=== PATIENT | male | born 1950 | race Caucasian/White ===

== ENCOUNTER 2022-09-30 09:00 | Outpatient (RCR) | payer MEDICARE, SELFPAY ==
--- NOTE | 2022-03-11 15:52 | ONC.NURNOTE ---
abiraterone (zytiga) pill strength Mr. Simon called today to verify the dose of abiraterone he should take. He reports that he actually received a prescription 2 days ago, and a second one yesterday. Both bottles are for 250mg tabs, with instruction to take 4 tabs daily. Script we have on file for him is for 2- 500mg tabs. Either way, total dose is to be 1000mg daily. Confirmed with Mr. Simon that he is to take 4 - 250mg tabs for total dose of 1000mg daily, on an empty stomach, 1 hour before meal, or 2 hours after a meal. He knows to take prednisone as well and we discussed that he should take the prednisone when he eats breakfast, daily. He is agreeable to this plan.
[2022-04-07 13:28] LABS: Basophils Absolute Auto 0.04 K/uL (0.00-0.30); Basophils Percent Auto 0.5 % (0.0-3.0); Eosinophils Absolute Auto 0.29 K/uL (0.00-0.50); Eosinophils Percent Auto 3.5 % (0.0-7.0); Hemoglobin* 13.9 gm/dL (13.5-17.5); Immature Granulocytes Abs Auto 0.04 K/uL (0.00-0.30); Lymphocytes Percent Auto 5.8 % (20-44); Mean Corpuscular HGB Conc 34 gm/dL (32-36); Mean Corpuscular Hemoglobin 32 pg (26-34); Mean Corpuscular Volume 93 fL (80-100); Monocytes Percent Auto 12.2 % (0.0-11.0); Neutrophils Percent Auto 77.5 % (42.0-72.0); Platelet Count* 119 K/uL (140-440); RDW Coefficient of Variation % 13.7 % (11.5-15.5); Red Blood Count 4.41 m/uL (4.30-5.90); White Blood Count* 8.33 K/uL (4.50-11.00)
[2022-04-07 13:34] LABS: Slide Review Reflex No
[2022-04-07 13:49] LABS: Albumin* 3.8 g/dL (3.3-5.0); Chloride* 103 mmol/L (96-114)
[2022-04-07 13:50] LABS: Potassium* 4.3 mmol/L (3.6-5.1); Sodium* 139 mmol/L (135-149)
[2022-04-07 13:52] LABS: Alkaline Phosphatase* 107 U/L (40-150); Aspartate Amino Transferase* 25 U/L (12-35); Bilirubin Total* 0.6 mg/dL (0.1-1.5); Carbon Dioxide* 29 mmol/L (20-32); Creatinine* 0.9 mg/dL (0.5-1.5); Estimated Glomerular Filt Rate 91 ml/min; Total Protein* 6.9 g/dL (6.0-8.3)
[2022-04-07 13:53] LABS: Alanine Aminotransferase* 16 U/L (4-50); Blood Urea Nitrogen* 22 mg/dL (7-30); Calcium* 8.8 mg/dL (8.4-10.6); Glucose* 99 mg/dL (60-115)
--- NOTE | 2022-05-01 11:49 | ONC.NURNOTE ---
Authorization: User: Luci Bowie Date: 01/23/22 13:47 Type: Eligibility Determination Note... Request received from [facility] for prior authorization of Leuprolide [id number]. Patient carries [facility] Advantage as primary insurance. Per [facility] Leuprolide has been approved from 01/23/2022 through 01/23/2023. Authorization #[id number]
[2022-05-05 11:06] LABS: Basophils Absolute Auto 0.03 K/uL (0.00-0.30); Basophils Percent Auto 0.3 % (0.0-3.0); Eosinophils Percent Auto 1.8 % (0.0-7.0); Hematocrit 38.7 % (37.0-53.0); Hemoglobin* 13.2 gm/dL (13.5-17.5); Immature Granulocytes Abs Auto 0.05 K/uL (0.00-0.30); Lymphocytes Percent Auto 8.2 % (20-44); Mean Corpuscular HGB Conc 34 gm/dL (32-36); Mean Corpuscular Hemoglobin 32 pg (26-34); Mean Corpuscular Volume 94 fL (80-100); Monocytes Percent Auto 7.7 % (0.0-11.0); Neutrophils Percent Auto 81.5 % (42.0-72.0); Platelet Count* 145 K/uL (140-440); Red Blood Count 4.12 m/uL (4.30-5.90); White Blood Count* 10.84 K/uL (4.50-11.00)
[2022-05-05 11:20] LABS: Slide Review Reflex No
[2022-05-05 11:26] VITALS: BP 115/66; PULSE 74; RESP 16; TEMP 36.2; O2SAT 96
[2022-05-05 11:34] LABS: Blood Urea Nitrogen* 19 mg/dL (7-30); Carbon Dioxide* 28 mmol/L (20-32); Chloride* 103 mmol/L (96-114); Est. Creatinine Clearance* 62.43; Estimated Glomerular Filt Rate 80 ml/min; Potassium* 4.2 mmol/L (3.6-5.1); Sodium* 139 mmol/L (135-149)
[2022-05-05 11:35] LABS: Alanine Aminotransferase* 18 U/L (4-50); Albumin* 4.1 g/dL (3.3-5.0); Alkaline Phosphatase* 95 U/L (40-150); Aspartate Amino Transferase* 27 U/L (12-35); Bilirubin Total* 0.9 mg/dL (0.1-1.5); Glucose* 88 mg/dL (60-115); Total Protein* 7.1 g/dL (6.0-8.3)
[2022-05-05 13:35] LABS: PSA Diagnostic* < 0.06 ng/mL (0.10-4.00)
[2022-06-02 09:22] LABS: Basophils Absolute Auto 0.04 K/uL (0.00-0.30); Basophils Percent Auto 0.5 % (0.0-3.0); Eosinophils Absolute Auto 0.46 K/uL (0.00-0.50); Eosinophils Percent Auto 5.2 % (0.0-7.0); Hematocrit 38.9 % (37.0-53.0); Hemoglobin* 13.3 gm/dL (13.5-17.5); Immature Granulocytes Abs Auto 0.05 K/uL (0.00-0.30); Lymphocytes Percent Auto 8.1 % (20-44); Mean Corpuscular HGB Conc 34 gm/dL (32-36); Mean Corpuscular Hemoglobin 32 pg (26-34); Mean Corpuscular Volume 94 fL (80-100); Monocytes Percent Auto 9.4 % (0.0-11.0); Neutrophils Percent Auto 76.2 % (42.0-72.0); Platelet Count* 155 K/uL (140-440); RDW Coefficient of Variation % 12.3 % (11.5-15.5); Red Blood Count 4.12 m/uL (4.30-5.90); White Blood Count* 8.81 K/uL (4.50-11.00)
[2022-06-02 09:26] LABS: Slide Review Reflex No
[2022-06-02 09:39] LABS: Albumin* 4.1 g/dL (3.3-5.0); Chloride* 105 mmol/L (96-114); Potassium* 4.1 mmol/L (3.6-5.1); Sodium* 142 mmol/L (135-149)
[2022-06-02 09:41] LABS: Creatinine* 0.8 mg/dL (0.5-1.5); Est. Creatinine Clearance* 62.43; Estimated Glomerular Filt Rate 94 ml/min
[2022-06-02 09:42] LABS: Alanine Aminotransferase* 14 U/L (4-50); Alkaline Phosphatase* 99 U/L (40-150); Aspartate Amino Transferase* 27 U/L (12-35); Bilirubin Total* 0.7 mg/dL (0.1-1.5); Blood Urea Nitrogen* 16 mg/dL (7-30); Carbon Dioxide* 29 mmol/L (20-32); Glucose* 95 mg/dL (60-115); Total Protein* 6.9 g/dL (6.0-8.3)
[2022-06-02 09:43] LABS: Calcium* 9.4 mg/dL (8.4-10.6)
--- NOTE | 2022-06-02 10:53 | ONC.NURNOTE ---
labs called to pt and shown to [facility].
--- NOTE | 2022-06-03 13:06 | ONC.NURNOTE ---
Labs reviewed by Dr Lr called to patient as stable next appts reviewed was instructed to check with insurance about specialty drug coverage, options
--- NOTE | 2022-06-20 12:02 | ONC.NURNOTE ---
Pt notified of refill sent in by Liberty Alvarado CNP for Prednisone 5mg qday.
[2022-06-26 09:14] LABS: Basophils Absolute Auto 0.05 K/uL (0.00-0.30); Basophils Percent Auto 0.5 % (0.0-3.0); Eosinophils Percent Auto 5.9 % (0.0-7.0); Hematocrit 41.3 % (37.0-53.0); Hemoglobin* 13.7 gm/dL (13.5-17.5); Lymphocytes Percent Auto 6.1 % (20-44); Mean Corpuscular HGB Conc 33 gm/dL (32-36); Mean Corpuscular Hemoglobin 32 pg (26-34); Mean Corpuscular Volume 96 fL (80-100); Monocytes Percent Auto 9.9 % (0.0-11.0); Neutrophils Percent Auto 77.4 % (42.0-72.0); Platelet Count* 145 K/uL (140-440); Red Blood Count 4.29 m/uL (4.30-5.90)
[2022-06-26 09:15] LABS: Slide Review Reflex No
[2022-06-26 09:27] LABS: Albumin* 4.2 g/dL (3.3-5.0); Chloride* 103 mmol/L (96-114)
[2022-06-26 09:28] LABS: Potassium* 3.7 mmol/L (3.6-5.1); Sodium* 140 mmol/L (135-149)
[2022-06-26 09:30] LABS: Aspartate Amino Transferase* 29 U/L (12-35); Bilirubin Total* 0.7 mg/dL (0.1-1.5); Carbon Dioxide* 29 mmol/L (20-32); Creatinine* 0.9 mg/dL (0.5-1.5); Est. Creatinine Clearance* 61.51; Estimated Glomerular Filt Rate 90 ml/min; Total Protein* 7.3 g/dL (6.0-8.3)
[2022-06-26 09:31] LABS: Alanine Aminotransferase* 18 U/L (4-50); Alkaline Phosphatase* 97 U/L (40-150); Blood Urea Nitrogen* 19 mg/dL (7-30); Calcium* 9.1 mg/dL (8.4-10.6); Glucose* 104 mg/dL (60-115)
[2022-06-26 10:07] LABS: PSA Diagnostic* < 0.06 ng/mL (0.10-4.00)
[2022-06-30 10:55] LABS: Sex Hormone Binding Globulin 61 nmol/L (19-76); Testosterone, Adult Male <3 ng/dL (300-720); Testosterone, Free Calculation <1 pg/mL (47-244); Testosterone, Percentage Free <1.1 % (1.6-2.9)
--- NOTE | 2022-07-14 12:19 | ONC.NURNOTE ---
Message left for patient/ to call in follow up about options for Zytiga to continue on generic abiraterone with a monthly copay or to talk to provider about changing to another medication- Erleada
[2022-08-04 10:12] LABS: Albumin* 3.9 g/dL (3.3-5.0); Chloride* 103 mmol/L (96-114); Potassium* 4.1 mmol/L (3.6-5.1); Sodium* 139 mmol/L (135-149)
[2022-08-04 10:15] LABS: Alanine Aminotransferase* 21 U/L (4-50); Alkaline Phosphatase* 86 U/L (40-150); Aspartate Amino Transferase* 29 U/L (12-35); Bilirubin Total* 0.9 mg/dL (0.1-1.5); Blood Urea Nitrogen* 19 mg/dL (7-30); Carbon Dioxide* 28 mmol/L (20-32); Est. Creatinine Clearance* 61.51; Estimated Glomerular Filt Rate 79 ml/min; Glucose* 86 mg/dL (60-115); Total Protein* 6.9 g/dL (6.0-8.3)
[2022-08-04 10:20] LABS: Basophils Absolute Auto 0.04 K/uL (0.00-0.30); Basophils Percent Auto 0.4 % (0.0-3.0); Eosinophils Absolute Auto 0.25 K/uL (0.00-0.50); Eosinophils Percent Auto 2.6 % (0.0-7.0); Hematocrit 40.1 % (37.0-53.0); Hemoglobin* 13.6 gm/dL (13.5-17.5); Immature Granulocytes Abs Auto 0.04 K/uL (0.00-0.30); Immature Granulocytes Pct Auto 0.4 %; Lymphocytes Percent Auto 4.5 % (20-44); Mean Corpuscular HGB Conc 34 gm/dL (32-36); Mean Corpuscular Hemoglobin 32 pg (26-34); Mean Corpuscular Volume 94 fL (80-100); Neutrophils Percent Auto 82.1 % (42.0-72.0); Platelet Count* 141 K/uL (140-440); RDW Coefficient of Variation % 11.7 % (11.5-15.5); Red Blood Count 4.28 m/uL (4.30-5.90); White Blood Count* 9.49 K/uL (4.50-11.00)
[2022-08-04 10:36] LABS: Slide Review Reflex No
--- NOTE | 2022-08-05 14:35 | ONC.NURNOTE ---
Addendum entered by Rebecca Albright RN 08/06/22 15:02: Copay $1000 Addendum entered by Rebecca Albright RN 08/06/22 14:38: PA approved for Erleada thru 08/23/23 PA # [id number] [facility] Original Note: New Erleada RX faxed to [facility] [phone]
--- NOTE | 2022-08-07 15:24 | ONC.NURNOTE ---
New application faxed to [employer] for Ashok included with application, [id number], ins cards copy, demographics, RX
--- NOTE | 2022-09-04 13:46 | ONC.NURNOTE ---
Ashok to be shipped to patient this next week To continue on Zytiga until current supply is completed Instructions to be given for prednisone taper and treatment break between medications
--- NOTE | 2022-09-26 14:17 | ONC.NURNOTE ---
Erleada update: [facility] (the [facility] that will be shipping Erleada) has patients enrollement info, but they are waiting for authorization from [facility] to dispense Erleada [facility] Construction Economist states that [facility] can not set up shipping date and that is was an error for the [facility] rep to tell patient that the Erleada was going to be shipped last month Faizan's application has been escalated by the [facility] rep 3 times to get this case moving. [facility] has less than 2 weeks of Zytdova left on hand policy writer typist also talked to [facility] customer support advisor on Thursday and they stated they would be contacting patient this week about status of drug delivery- patient has not received any calls from [facility] or [facility] this week Sharron was advised of this conversation -
[2022-09-30 09:26] LABS: Basophils Absolute Auto 0.06 K/uL (0.00-0.30); Basophils Percent Auto 0.8 % (0.0-3.0); Eosinophils Percent Auto 9.2 % (0.0-7.0); Hematocrit 40.9 % (37.0-53.0); Hemoglobin* 13.5 gm/dL (13.5-17.5); Immature Granulocytes Abs Auto 0.01 K/uL (0.00-0.30); Immature Granulocytes Pct Auto 0.1 %; Lymphocytes Percent Auto 11.2 % (20-44); Mean Corpuscular HGB Conc 33 gm/dL (32-36); Mean Corpuscular Hemoglobin 31 pg (26-34); Mean Corpuscular Volume 95 fL (80-100); Monocytes Percent Auto 11.7 % (0.0-11.0); Neutrophils Absolute Auto 4.88 K/uL (1.7-7.0); Platelet Count* 137 K/uL (140-440); RDW Coefficient of Variation % 12.6 % (11.5-15.5); Red Blood Count 4.32 m/uL (4.30-5.90); White Blood Count* 7.29 K/uL (4.50-11.00)
[2022-09-30 09:47] LABS: Albumin* 3.9 g/dL (3.3-5.0); Chloride* 105 mmol/L (96-114); Sodium* 140 mmol/L (135-149)
[2022-09-30 09:48] LABS: Potassium* 4.2 mmol/L (3.6-5.1)
[2022-09-30 09:50] LABS: Alanine Aminotransferase* 16 U/L (4-50); Alkaline Phosphatase* 81 U/L (40-150); Aspartate Amino Transferase* 25 U/L (12-35); Bilirubin Total* 0.7 mg/dL (0.1-1.5); Blood Urea Nitrogen* 23 mg/dL (7-30); Carbon Dioxide* 31 mmol/L (20-32); Creatinine* 0.9 mg/dL (0.5-1.5); Est. Creatinine Clearance* 61.51; Estimated Glomerular Filt Rate 90 ml/min; Total Protein* 6.9 g/dL (6.0-8.3)
[2022-09-30 09:51] LABS: Glucose* 88 mg/dL (60-115)
[2022-09-30 09:55] LABS: Slide Review Reflex No
--- NOTE | 2022-10-02 10:45 | ONC.NURNOTE ---
Received call from [facility] confirming dose and directions of Erleada prescription; they will contact pt to set up delivery.
== END 2022-10-04 23:59 | disposition home or self-care (01) ==
LOC: CCIC 09:00
PROVIDERS: Clinical Nurse Specialist; PCP Physician Assistant Medical; Referring Provider Physician Assistant Medical; Visit Provider Internal Medicine Medical Oncology
DX: C61 Malignant neoplasm of prostate (principal)
CPT/HCPCS: 36415; 80053; 84153; 84270; 84402; 84403; 85025; 96401; 99212; 99214; J9217

== ENCOUNTER 2022-10-23 21:41 | Emergency (ER) | payer MEDICARE, SELFPAY ==
[2022-10-23 21:51] VITALS: BP 136/84; PULSE 87; RESP 26; TEMP 36.1; O2SAT 93; BMI 30.7
[2022-10-23 22:10] VITALS: PULSE 63; O2SAT 91
[2022-10-23 22:15] VITALS: PULSE 59; O2SAT 92
[2022-10-23 22:30] VITALS: PULSE 71; O2SAT 91
[2022-10-23 22:32] VITALS: BP 116/73; PULSE 50; O2SAT 90
--- NOTE | 2022-10-23 22:34 | ED_ITS ---
HPI - General Adult General Date Seen: 10/23/22 Chief complaint: Shortness of Breath/Dyspnea Stated complaint: Pneumonia, not responding to meds give 36h ago Time Seen by Provider: 10/23/22 22:02 Source: patient and family Mode of arrival: ambulatory Limitations: no limitations History of Present Illness HPI narrative: Patient is a 72-year-old male with chronic lung disease in the form of pulmonary fibrosis and negrete's lung. He has been ill for several weeks with wheezing and shortness of breath. He was seen in clinic yesterday and prescribed Zithromax and Ceftin and told that he had pneumonia. In reviewing his chest x-ray he has no acute pneumonia but does have chronic lung disease. To 90 comes in because he has been unable to sleep. When he lies on his back he wheezes loudly and the noise keeps him awake. His oxygen level at home has been in the low 90s. He is eating and drinking okay. He has DuoNebs, Flovent, Robitussin AC. No fevers or chills. He has never required home oxygen. He is doing oral chemotherapy for prostate cancer. He is only on 2.5 mg of prednisone daily. In the past steroid seem to be the only thing that helps his respiratory infections. Related Data Home Medications Medication Instructions Recorded Confirmed Lactobacillus acidophilus 10 10,000 mmu cells PO ONCE 04/07/22 08/04/22 billion cell capsule (Probiotic) aspirin 81 mg tablet,delayed 81 mg PO QDAY 04/07/22 08/04/22 release (Deirdre Low Dose Aspirin) losartan 25 mg tablet 25 mg PO QDAY 04/07/22 08/04/22 metoprolol tartrate 25 mg tablet 25 mg PO BID 04/07/22 08/04/22 multivitamin 1 tab PO QAM 04/07/22 08/04/22 vit C 250 mg-vit E 90 mg-zinc 40 1 tab PO BID 04/07/22 08/04/22 mg-copper 1 [id number] capsule (PreserVision AREDS-2) simvastatin 40 mg tablet 40 mg PO QDAY 08/04/22 08/04/22 Previous Rx's Medication Instructions Recorded apalutamide 60 mg tablet (Erleada) 240 mg PO QDAY #120 tabs 08/04/22 prednisone 2.5 mg tablet 2.5 mg PO QDAY #14 tabs 02/03/23 prednisone 20 mg tablet 20 mg PO DAILY #14 tabs 10/23/22 Allergies Allergy/AdvReac Type Severity Reaction Status Date / Time No Known Drug Allergies Allergy Verified 10/23/22 21:51 Review of Systems Narrative: Review of systems is as outlined above otherwise noted to be negative. [facility] Medical History (Updated 10/23/22 @ 22:34 by Nikos Rivers MD) Adenocarcinoma of prostate (~11/2021) Colon polyp Essential hypertension [place]' lung Pulmonary fibrosis Surgical wound dehiscence Thoracic aortic ectasia Surgical History (Updated 10/23/22 @ 22:04 by Nikos Rivers MD) H/O aortic valve replacement (~09/2020) History of incisional hernia repair (~2010) Hx laparoscopic cholecystectomy Social History Smoking Status: Former smoker Do you use any of these nicotine containing products: None Second hand tobacco smoke exposure: No How often do you have a drink containing alcohol: never How often do you have six or more drinks on one occasion: Never AUDIT-C Alcohol total score: 0 Non-prescribed substance use: denies use service: Yes Exam Narrative: Exam Narrative: Vitals noted. Oxygen saturation is between 90 and 92% on room air. HEENT: Conjunctiva clear. Tympanic membranes are pearly white bilaterally. Posterior pharynx is clear without erythema or exudate. Neck is supple without adenopathy. Lungs: Diminished with expiratory wheezes. Loose rhonchi throughout. No localizing rales or rhonchi. No accessory muscle use. Heart: Regular rate and rhythm without murmur. Abdomen: Soft and nontender. No guarding, rigidity, rebound. Bowel sounds are normal. No palpable masses. Extremities: No cyanosis or edema. Good distal pulses. Skin: No abnormalities noted of the exposed skin. Neurologic: Awake, alert, fully oriented. Neurologic exam is nonfocal. Const: Vital Signs, click to edit/add: Vital Signs - 24 hr 10/23/22 21:51 Temperature 96.9 F L Pulse Rate [Pulse Oximeter] 87 Respiratory Rate 26 H Blood Pressure [Ri ght Upper Arm] 136/84 Pulse Oximetry 93 Oxygen Delivery Me thod Room Air Course Course Hospital Course: Patient is seen and examined. I reviewed his labs and chest x-ray that were done at the [facility] yesterday. We discussed options of hospital admission versus trying optimize his outpatient treatment. He prefers to remain at home. I gave him prednisone 50 mg orally and lorazepam 1 mg orally as his main complaint is inability to sleep. If he has worsening respiratory issues he will return but both he and his prefer that he be discharged tonight and I think that is very reasonable. He has DuoNebs, Flovent, Robitussin AC at home. Vital Signs Vital signs: Initial Vital Signs Temperature 96.9 F L 10/23/22 21:51 Temperature Source Temporal Artery Scan 10/23/22 21:51 Pulse Rate 87 10/23/22 21:51 Pulse Rhythm 10/23/22 21:51 Respiratory Rate 26 H 10/23/22 21:51 Blood Pressure 136/84 10/23/22 21:51 Blood Pressure Mean 101 10/23/22 21:51 Blood Pressure Position Supine 10/23/22 21:51 Pulse Oximetry 93 10/23/22 21:51 Oxygen Delivery Method 10/23/22 21:51 Vital Signs Temperature 96.9 F L 10/23/22 21:51 Pulse Rate 87 10/23/22 21:51 Respiratory Rate 26 H 10/23/22 21:51 Blood Pressure 136/84 10/23/22 21:51 Pulse Oximetry 93 10/23/22 21:51 Oxygen Delivery Method 10/23/22 21:51 Temperature 96.9 F L 10/23/22 21:51 Pulse Rate 87 10/23/22 21:51 Respiratory Rate 26 H 10/23/22 21:51 Blood Pressure 136/84 10/23/22 21:51 Pulse Oximetry 93 10/23/22 21:51 Oxygen Delivery Method 10/23/22 21:51 Discharge Plan Discharge Clinical Impression: Pulmonary fibrosis Patient Disposition: Home, Self-Care Condition: Improved Additional Instructions: Finish your Ceftin and Zithromax. Start Prednisone 40 mg daily for 4 days, 20 mg daily for 4 days, 10 mg daily for 4 days then stop. Push fluids. Remain upright for sleep. Use Robitussin with Codeine, DuoNebs, and Flovent as prescribed. Ret urn to the ED for worsening SOB. Prescriptions: New prednisone 20 mg tablet 20 mg PO DAILY Qty: 14 0RF Rx Instructions: 2 QD x 4 days, 1 QD x 4 days, 1/2 QD x 4 days No Action simvastatin 40 mg tablet 40 mg PO QDAY Erleada 60 mg tablet 240 mg PO QDAY Qty: 120 6RF metoprolol tartrate 25 mg tablet 25 mg PO BID losartan 25 mg tablet 25 mg PO QDAY PreserVision AREDS-2 250-90-40-1 mg capsule 1 tab PO BID multivitamin Tablet 1 tab PO QAM aspirin [Deirdre Low Dose Aspirin] 81 mg tablet,delayed release (DR/EC) 81 mg PO QDAY Probiotic 10 billion cell capsule 10,000 mmu cells PO ONCE prednisone 2.5 mg tablet 2.5 mg PO QDAY Qty: 14 0RF Rx Instructions: Take 1 tab daily for 14 days, then stop. Follow Up/Referrals: Jacquelyn Fleming PAMaryaC [Primary Care Provider] - Stand Alone Forms: [facility] Info Instructions
[2022-10-23] MEDS: LORazepam 1 MG TABLET PO (22:38)
[2022-10-23] MEDS: predniSONE 10 MG TABLET 50 MG PO (22:38)
[2022-10-23 22:45] VITALS: O2SAT 91
== END 2022-10-23 22:48 | disposition home or self-care (01) ==
LOC: ED 22:43
PROVIDERS: Emergency Provider Family Medicine; PCP Physician Assistant Medical
DX: J84.10 Pulmonary fibrosis, unspecified (principal)
CPT/HCPCS: 99282; 99283; 99284; A9270; J7512

== ENCOUNTER 2023-02-03 08:45 | Outpatient (RCR) | payer MEDICARE, SELFPAY ==
[2022-11-03 10:47] LABS: Basophils Percent Auto 0.3 % (0.0-3.0); Eosinophils Percent Auto 1.8 % (0.0-7.0); Hematocrit 43.2 % (37.0-53.0); Hemoglobin* 14.7 gm/dL (13.5-17.5); Lymphocytes Percent Auto 2.9 % (20-44); Mean Corpuscular HGB Conc 34 gm/dL (32-36); Mean Corpuscular Hemoglobin 31 pg (26-34); Mean Corpuscular Volume 92 fL (80-100); Monocytes Percent Auto 9.6 % (0.0-11.0); Neutrophils Percent Auto 84.4 % (42.0-72.0); Platelet Count* 172 K/uL (140-440); RDW Coefficient of Variation % 12.6 % (11.5-15.5); Red Blood Count 4.69 m/uL (4.30-5.90); Slide Review Reflex No; White Blood Count* 14.32 K/uL (4.50-11.00)
[2022-11-03 11:01] LABS: Albumin* 3.9 g/dL (3.3-5.0); Chloride* 100 mmol/L (96-114); Sodium* 134 mmol/L (135-149)
[2022-11-03 11:02] LABS: Potassium* 4.4 mmol/L (3.6-5.1)
[2022-11-03 11:04] LABS: Alanine Aminotransferase* 18 U/L (4-50); Alkaline Phosphatase* 77 U/L (40-150); Aspartate Amino Transferase* 28 U/L (12-35); Bilirubin Total* 0.6 mg/dL (0.1-1.5); Blood Urea Nitrogen* 21 mg/dL (7-30); Carbon Dioxide* 28 mmol/L (20-32); Estimated Glomerular Filt Rate 79 ml/min; Total Protein* 7.2 g/dL (6.0-8.3)
[2022-11-03 11:05] LABS: Calcium* 9.3 mg/dL (8.4-10.6); Glucose* 128 mg/dL (60-115)
[2022-11-03 11:35] LABS: PSA Diagnostic* 0.09 ng/mL (0.10-4.00)
--- NOTE | 2022-11-06 09:47 | ONC.NURNOTE ---
Ashok refills jeffrey received refill last Thursday10/31/22 this film writer was informed by [facility] (Alvarado) that future refills will be automatically sent out every 30 days and patient will not receive a call from [facility] [facility] prior to shipment [facility]? [phone] [facility] _ [facility] [phone]
--- NOTE | 2022-11-10 11:45 | ONC.NURNOTE ---
Patients called office and notes that patient had a lupron injection last Thursday. He notes swelling near his testicles that have come up. She notes that he is currently being seen for pneumonia and is being treated with multiple medications. Instructed to be seen by primary care, as this swelling would not be caused by the injection. He has an appointment on Thursday, but was encouraged to try to get in sooner or at least call providers office.
--- NOTE | 2023-02-02 11:09 | URNOTE ---
Request received from [facility] for prior authorization of Leuprolide ([id number]). Patient carries [facility] Advantage as primary insurance. Per [facility] Rep. Yumiko V. Leuprolide has been Approved from 02/02/2023 through 02/03/2024. Authorization #[id number].
[2023-02-03 09:11] LABS: Basophils Absolute Auto 0.04 K/uL (0.00-0.30); Basophils Percent Auto 0.5 % (0.0-3.0); Eosinophils Percent Auto 11.4 % (0.0-7.0); Hematocrit 40.2 % (37.0-53.0); Hemoglobin* 13.7 gm/dL (13.5-17.5); Immature Granulocytes Abs Auto 0.02 K/uL (0.00-0.30); Immature Granulocytes Pct Auto 0.3 %; Lymphocytes Percent Auto 11.1 % (20-44); Mean Corpuscular HGB Conc 34 gm/dL (32-36); Mean Corpuscular Hemoglobin 32 pg (26-34); Mean Corpuscular Volume 92 fL (80-100); Neutrophils Absolute Auto 5.11 K/uL (1.7-7.0); Neutrophils Percent Auto 64.7 % (42.0-72.0); Platelet Count* 166 K/uL (140-440); RDW Coefficient of Variation % 11.9 % (11.5-15.5); Red Blood Count 4.35 m/uL (4.30-5.90)
[2023-02-03 09:32] LABS: Albumin* 3.6 g/dL (3.3-5.0); Chloride* 103 mmol/L (96-114)
[2023-02-03 09:33] LABS: Potassium* 3.7 mmol/L (3.6-5.1); Sodium* 138 mmol/L (135-149)
[2023-02-03 09:35] LABS: Alkaline Phosphatase* 75 U/L (40-150); Aspartate Amino Transferase* 28 U/L (12-35); Bilirubin Total* 0.5 mg/dL (0.1-1.5); Carbon Dioxide* 25 mmol/L (20-32); Creatinine* 0.8 mg/dL (0.5-1.5); Est. Creatinine Clearance* 67.93; Estimated Glomerular Filt Rate 93 ml/min; Slide Review Reflex No; Total Protein* 6.8 g/dL (6.0-8.3)
[2023-02-03 09:36] LABS: Alanine Aminotransferase* 16 U/L (4-50); Blood Urea Nitrogen* 14 mg/dL (7-30); Calcium* 9.1 mg/dL (8.4-10.6); Glucose* 123 mg/dL (60-115)
[2023-02-03 10:09] LABS: PSA Diagnostic* < 0.06 ng/mL (0.10-4.00)
== END 2023-05-02 23:59 | disposition home or self-care (01) ==
LOC: CCIC 08:45
PROVIDERS: Clinical Nurse Specialist; PCP Physician Assistant Medical; Referring Provider Physician Assistant Medical; Visit Provider Internal Medicine Hematology & Oncology
DX: C61 Malignant neoplasm of prostate (principal); J84.10 Pulmonary fibrosis, unspecified; J67.0 Farmer's lung; R23.2 Flushing
CPT/HCPCS: 36415; 80053; 84153; 85025; 96401; 99212; 99215; J9217

== ENCOUNTER 2023-02-09 09:06 | Outpatient (CLI) | payer MEDICARE, SELFPAY ==
--- NOTE | 2023-02-09 11:16 | W.ANESCHARGE ---
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
== END 2023-02-09 09:07 | disposition home or self-care (01) ==
LOC: OP CLINIC 09:07
PROVIDERS: PCP Physician Assistant Medical; Visit Provider Internal Medicine Gastroenterology
DX: Z12.11 Encounter for screening for malignant neoplasm of colon (principal); K62.89 Other specified diseases of anus and rectum; K57.30 Diverticulosis of large intestine without perforation or abscess without bleeding; Z86.010 Personal history of colon polyps
CPT/HCPCS: 00812; 45378; 99100; J2704

== ENCOUNTER 2023-08-03 10:15 | Outpatient (RCR) | payer MEDICARE, SELFPAY ==
[2023-05-04 13:58] LABS: Basophils Absolute Auto 0.04 K/uL (0.00-0.30); Basophils Percent Auto 0.4 % (0.0-3.0); Eosinophils Absolute Auto 0.49 K/uL (0.00-0.50); Eosinophils Percent Auto 5.4 % (0.0-7.0); Hematocrit 40.3 % (37.0-53.0); Hemoglobin* 13.5 gm/dL (13.5-17.5); Immature Granulocytes Abs Auto 0.04 K/uL (0.00-0.30); Immature Granulocytes Pct Auto 0.4 %; Lymphocytes Percent Auto 8.5 % (20-44); Mean Corpuscular HGB Conc 34 gm/dL (32-36); Mean Corpuscular Hemoglobin 31 pg (26-34); Mean Corpuscular Volume 93 fL (80-100); Monocytes Percent Auto 8.4 % (0.0-11.0); Neutrophils Percent Auto 76.9 % (42.0-72.0); Platelet Count* 171 K/uL (140-440); RDW Coefficient of Variation % 12.3 % (11.5-15.5); Red Blood Count 4.32 m/uL (4.30-5.90); White Blood Count* 9.07 K/uL (4.50-11.00)
[2023-05-04 14:17] LABS: Slide Review Reflex No
[2023-05-04 14:22] LABS: Albumin* 3.8 g/dL (3.3-5.0)
[2023-05-04 14:23] LABS: Chloride* 101 mmol/L (96-114); Potassium* 4.2 mmol/L (3.6-5.1); Sodium* 136 mmol/L (135-149)
[2023-05-04 14:25] LABS: Anion Gap 6 mEq/L (7-15); Bilirubin Total* 0.4 mg/dL (0.1-1.5); Carbon Dioxide* 29 mmol/L (20-32); Estimated Glomerular Filt Rate 79 ml/min
[2023-05-04 14:26] LABS: Alanine Aminotransferase* 17 U/L (4-50); Alkaline Phosphatase* 86 U/L (40-150); Aspartate Amino Transferase* 30 U/L (12-35); Blood Urea Nitrogen* 14 mg/dL (7-30); Calcium* 9.4 mg/dL (8.4-10.6); Total Protein* 7.1 g/dL (6.0-8.3)
[2023-05-04 14:43] LABS: Glucose* 110 mg/dL (60-115)
[2023-05-04 14:58] LABS: PSA Diagnostic* < 0.06 ng/mL (0.10-4.00)
--- NOTE | 2023-07-31 14:15 | ONC.NURNOTE ---
Apalutamide prescription re-faxed to [facility].
--- NOTE | 2023-07-31 14:17 | ONC.NURNOTE ---
Ashok prescription re-faxed to [facility].
[2023-08-03 10:29] LABS: Basophils Absolute Auto 0.05 K/uL (0.00-0.30); Basophils Percent Auto 0.5 % (0.0-3.0); Eosinophils Percent Auto 8.8 % (0.0-7.0); Hematocrit 42.2 % (37.0-53.0); Immature Granulocytes Abs Auto 0.03 K/uL (0.00-0.30); Immature Granulocytes Pct Auto 0.3 %; Lymphocytes Percent Auto 9.9 % (20-44); Mean Corpuscular HGB Conc 33 gm/dL (32-36); Mean Corpuscular Hemoglobin 32 pg (26-34); Mean Corpuscular Volume 95 fL (80-100); Monocytes Percent Auto 10.5 % (0.0-11.0); Neutrophils Absolute Auto 6.72 K/uL (1.7-7.0); Platelet Count* 185 K/uL (140-440); RDW Coefficient of Variation % 12.3 % (11.5-15.5); Red Blood Count 4.45 m/uL (4.30-5.90); White Blood Count* 9.61 K/uL (4.50-11.00)
[2023-08-03 10:32] LABS: Slide Review Reflex No
[2023-08-03 10:39] LABS: Albumin* 4.2 g/dL (3.3-5.0); Chloride* 100 mmol/L (96-114)
[2023-08-03 10:40] LABS: Potassium* 4.2 mmol/L (3.6-5.1); Sodium* 136 mmol/L (135-149)
[2023-08-03 10:42] LABS: Alkaline Phosphatase* 68 U/L (40-150); Anion Gap 9 mEq/L (7-15); Aspartate Amino Transferase* 31 U/L (12-35); Bilirubin Total* 0.4 mg/dL (0.1-1.5); Blood Urea Nitrogen* 20 mg/dL (7-30); Carbon Dioxide* 27 mmol/L (20-32); Estimated Glomerular Filt Rate 79 ml/min; Total Protein* 7.5 g/dL (6.0-8.3)
[2023-08-03 10:43] LABS: Alanine Aminotransferase* 18 U/L (4-50); Calcium* 9.6 mg/dL (8.4-10.6); Glucose* 95 mg/dL (60-115)
[2023-08-03 11:22] LABS: PSA Diagnostic* < 0.06 ng/mL (0.10-4.00)
--- NOTE | 2023-08-26 14:05 | ONC.NURNOTE ---
Patient phoned with concern of intermittant tingling on his forehead that may or may not be related to the timing of his hot flashes Patient reports that his brother this weekend of a hemorrhagic stroke and he is concerned about noted changes. The intermittant tingling has been present for the past 3 weeks. Patient questions if it is related to apalutamide- creative writer reviewed adverse reactions to apalutamide with Maury as listed in clinical pharmacology creative writer suggested patient contact his PCP Jacquelyn Fleming- who instructed Maury to contact us. Maury will monitor tingling in relation to hot flashes and call this creative writer back with follow up Station Tender will communicate this to DR Teresa
--- NOTE | 2023-09-22 10:30 | ONC.NURNOTE ---
Ashok re-enrollment into [facility] PAP hand sign writer phoned patient to find out status of Erkrzysztofada re-enrollment and confirmed that he has received notification that he was re-enrolled thru 08/23/24 no paper application was required to be completed for this year's enrollment
== END 2023-10-31 23:59 | disposition home or self-care (01) ==
LOC: CCIC 10:15
PROVIDERS: PCP Physician Assistant Medical; Referring Provider Physician Assistant Medical; Visit Provider Internal Medicine Hematology & Oncology
DX: C61 Malignant neoplasm of prostate (principal); R23.2 Flushing; J84.10 Pulmonary fibrosis, unspecified; J67.0 Farmer's lung
CPT/HCPCS: 36415; 80053; 84153; 85025; 96401; 99212; 99214; J9217

== ENCOUNTER 2023-11-04 09:19 | Inpatient (IN) | payer MEDICARE, SELFPAY ==
[2023-11-04] VITALS (22 sets, daily range): BP systolic 114–130; BP diastolic 69–92; PULSE 74–92; RESP 14–22; TEMP 35.9–36.8; O2SAT 88–96; BMI 29.8
--- NOTE | 2023-11-04 09:43 | XR_ITS ---
Patient: JENNA BRUCE Facility:?[facility] R[facility] Patient ID:?[id number] Site Patient ID:?[id number]. Site :?[id number] Study:?XRay-Chest 1V-11/04/2023 10:17:33 AM Ordering Physician:?DR. VAZ Final Report: Indication: Weakness, cancer patient Technique: AP view of the chest. Comparison: None. Findings: Postsurgical changes from median sternotomy. Moderately enlarged cardiomediastinal silhouette. Retrocardiac opacity and moderate interstitial prominence with [id number] patchy bilateral airspace opacities. No pleural effusion or visualized pneumothorax. Impression: Retrocardiac opacity and moderate interstitial prominence with [id number] patchy bilateral airspace opacities may represent moderate pulmonary edema, though multifocal infection can not be excluded. Dictated by Zion Burgos MD @ 11/04/2023 10:30:25 AM Signed by:?Zion Burgos MD @11/04/2023 10:30:25 AM (Electronic Signature)
--- NOTE | 2023-11-04 09:45 | ED_ITS ---
HPI - General Adult General Chief complaint: Weakness Stated complaint: weak- COPD- cancer pt Time Seen by Provider: 11/04/23 09:28 History of Present Illness HPI narrative: Patient is a 73 year white male with history of prostate cancer status post chemotherapy and radiation, and receiving ongoing Lupron injections as well as on oral chemotherapy agent. He is followed by oncology here at the hospital. He has a history of english's lung, pulmonary fibrosis, hypertension, he has had hot flashes from the Lupron. He reports the last week he has had increasing cough congestion he does report this is similar to his english's lung, he does have inhalers at home. He is on prior mg of prednisone daily that he is on because of the chemotherapeutic agent recommendation of the oncologist patient has no complaint of chest pain but he does say it hurts little bit in his chest when he coughs, he has had a yellow to whitish type sputum. Perhaps a little more sputum production the normal. He has benefited from steroid medications during his english's lung exacerbations. He has not had really rigors or chills or fever like influenza. He has had a history of no heart issues or blood clots in the past Related Data Home Medications Medication Instructions Recorded Confirmed metoprolol tartrate 25 mg tablet 25 mg PO BID 04/07/22 11/04/23 multivitamin 1 tab PO QAM 04/07/22 11/04/23 prednisone 5 mg tablet 5 mg PO DAILY 02/03/23 11/04/23 acetaminophen 500 mg tablet 1,000 mg PO TID 11/04/23 11/04/23 albuterol sulfate 90 mcg/actuation 2 puff inhalation Q4H PRN wheezing 11/04/23 11/04/23 aerosol inhaler (Ventolin HFA) aspirin 81 mg tablet,delayed 81 mg PO DAILY 11/04/23 11/04/23 release (Adult Low Dose Aspirin) calcium carbonate 600 mg-vitamin 1 tab PO BID 11/04/23 11/04/23 D3 10 mcg (400 unit) tablet ipratropium 0.5 mg-albuterol 3 mg 3 ml inhalation QID PRN dyspnea 11/04/23 11/04/23 (2.5 mg base)/3 mL nebulization soln rosuvastatin 20 mg tablet 20 mg PO HS 11/04/23 11/04/23 umeclidinium 62.5 mcg-vilanterol 1 inh inhalation DAILY 11/04/23 11/04/23 25 mcg/actuation powdr for inhalation (Anoro Ellipta) Previous Rx's Medication Instructions Recorded apalutamide 60 mg tablet (Erleada) 240 mg (4 x 60 mg) PO QDAY #120 07/29/23 tabs Allergies Allergy/AdvReac Type Severity Reaction Status Date / Time oxybutynin AdvReac Mild Verified 08/03/23 11:10 Review of Systems Status of ROS: Reports: 6 or more systems reviewed and unremarkable except as noted in History and below [facility] Medical History (Updated 11/04/23 @ 14:47 by Jere Cox MD) Primary malignant neoplasm of prostate ?C61 - Malignant neoplasm of prostate (ICD-10) Bicuspid aortic valve ?Q23.1 - Congenital insufficiency of aortic valve (ICD-10) Chronic obstructive pulmonary disease (COPD) ?J44.9 - Chronic obstructive pulmonary disease, unspecified (ICD-10) Asthma ?J45.909 - Unspecified asthma, uncomplicated (ICD-10) Surgical wound dehiscence ?T81.31XA - Disruption of external operation (surgical) wound, not elsewhere classified, initial encounter (ICD-10) Thoracic aortic ectasia ?I77.810 - Thoracic aortic ectasia (ICD-10) Colon polyp ?K63.5 - Polyp of colon (ICD-10) Essential hypertension ?I10 - Essential (primary) hypertension (ICD-10) Pulmonary fibrosis ?J84.10 - Pulmonary fibrosis, unspecified (ICD-10) [place]' lung ?J67.0 - English's lung (ICD-10) Adenocarcinoma of prostate (~11/2021) ?C61 - Malignant neoplasm of prostate (ICD-10) Surgical History (Updated 11/04/23 @ 13:57 by Jere Cox MD) H/O aortic valve replacement with tissue graft ?Z95.4 - Presence of other heart-valve replacement (ICD-10) Hx laparoscopic cholecystectomy ?Z90.49 - Acquired absence of other specified parts of digestive tract (ICD- 10) History of incisional hernia repair (~2010) ?Z98.890 - Other specified postprocedural states (ICD-10) ?Z87.19 - Personal history of other diseases of the digestive system (ICD-10) H/O aortic valve replacement (~09/2020) ?Z95.2 - Presence of prosthetic heart valve (ICD-10) Family History (Updated 11/04/23 @ 13:59 by Jere Cox MD) Brother Alcohol use disorder Brain aneurysm Diabetes Father Prostate cancer Diabetes Heart disease Sister Diabetes Social History Smoking Status: Former smoker Do you use any of these nicotine containing products: None Second hand tobacco smoke exposure: No How often do you have a drink containing alcohol: never How often do you have six or more drinks on one occasion: Never AUDIT-C Alcohol total score: 0 Non-prescribed substance use: denies use service: Yes Exam Narrative: Exam Narrative: Objective: Patient's vital signs look unremarkable, his O2 sats 91% on room air He is alert or x3, noncyanotic, talks in even unlabored sentences HEENT is unremarkable facial asymmetry neck is supple his chest shows basilar wheezes, no obvious rales Heart rhythm regular the [place] occasional ectopic beat 2/6 systolic ejection murmur Abdomen benign soft Extremities are no edema neurologic nonfocal good peripheral perfusion, no complaint of leg pain. Const: Vital Signs, click to edit/add: Vital Signs - 24 hr 11/04/23 09:23 11/04/23 10:02 11/04/23 10:51 Temperature 97.4 F L Pulse Rate Pulse Rate [Pulse Oximeter] 77 85 Respiratory Rate 18 16 Blood Pressure Blood Pressure [Ri ght Upper Arm] 130/82 120/76 Pulse Oximetry 91 90 88 Oxygen Delivery Me thod Room Air Room Air Oxygen Flow Rate 11/04/23 11:17 11/04/23 11:30 11/04/23 11:31 Temperature Pulse Rate 87 84 87 Pulse Rate [Pulse Oximeter] Respiratory Rate 16 Blood Pressure 118/73 Blood Pressure [Ri ght Upper Arm] Pulse Oximetry 91 92 93 Oxygen Delivery Me thod Oxygen Flow Rate 11/04/23 11:45 11/04/23 12:00 11/04/23 12:02 Temperature Pulse Rate 87 84 91 Pulse Rate [Pulse Oximeter] Respiratory Rate Blood Pressure 114/92 H Blood Pressure [Ri ght Upper Arm] Pulse Oximetry 90 89 95 Oxygen Delivery Me thod Nasal Cannula Oxygen Flow Rate 2 11/04/23 12:03 11/04/23 12:05 11/04/23 12:15 Temperature Pulse Rate 80 83 Pulse Rate [Pulse Oximeter] Respiratory Rate Blood Pressure Blood Pressure [Ri ght Upper Arm] Pulse Oximetry 93 94 96 Oxygen Delivery Me thod Nasal Cannula Oxygen Flow Rate 2 11/04/23 12:30 11/04/23 12:31 11/04/23 12:45 Temperature Pulse Rate 74 80 86 Pulse Rate [Pulse Oximeter] Respiratory Rate 16 Blood Pressure 124/77 Blood Pressure [Ri ght Upper Arm] Pulse Oximetry 95 94 96 Oxygen Delivery Me thod Oxygen Flow Rate Course Vital Signs Vital signs: Initial Vital Signs Temperature 97.4 F L 11/04/23 09:23 Temperature Source Temporal Artery Scan 11/04/23 09:23 Pulse Rate 77 11/04/23 09:23 Respiratory Rate 18 11/04/23 09:23 Blood Pressure 130/82 11/04/23 09:23 Blood Pressure Mean 98 11/04/23 09:23 Blood Pressure Position Supine 11/04/23 09:23 Pulse Oximetry 91 11/04/23 09:23 Oxygen Delivery Method Room Air 11/04/23 09:23 Vital Signs Temperature 97.4 F L 11/04/23 09:23 Pulse Rate 77 11/04/23 09:23 Respiratory Rate 18 11/04/23 09:23 Blood Pressure 130/82 11/04/23 09:23 Pulse Oximetry 91 11/04/23 09:23 Oxygen Delivery Method Room Air 11/04/23 09:23 Temperature 98.0 F 11/04/23 15:00 Pulse Rate 85 11/04/23 15:00 Respiratory Rate 20 11/04/23 15:00 Blood Pressure 115/69 11/04/23 15:00 Pulse Oximetry 93 11/04/23 15:00 Oxygen Delivery Method Room Air 11/04/23 15:00 Oxygen Flow Rate 2 11/04/23 12:05 Medications Administered Medications: Generic Name Dose Route Start Last Admin Trade Name Freq PRN Reason Stop Dose Admin Acetaminophen 1,000 mg 11/04/23 14:00 11/04/23 14:48 Acetaminophen 500 Mg Tablet PO Not Given TID JORDON Discontinued Medications Generic Name Dose Route Start Last Admin Trade Name Freq PRN Reason Stop Dose Admin Sodium Chloride 500 mls @ 500 mls/hr 11/04/23 09:43 11/04/23 11:20 0.9 % Sodium Chloride 500 Ml IV 11/04/23 10:42 Infused .Q1H ONE Infusion Ceftriaxone Sodium 1 gm/ 100 mls @ 200 mls/hr 11/04/23 11:50 11/04/23 12:36 Sodium Chloride IVPB 11/04/23 11:51 Infused ONCE ONE Infusion Azithromycin 500 mg/ Sodium 255 mls @ 255 mls/hr 11/04/23 12:00 11/04/23 12:37 Chloride IVPB 11/04/23 12:59 255 mls/hr ONCE ONE Administration Methylprednisolone Sodium Succinate 125 mg 11/04/23 09:50 11/04/23 10:13 Methylprednisolone Sod Succ 62.5 Mg/Ml (125) IVP 11/04/23 09:51 125 mg ONCE ONE Administration Medical Decision Making MDM Narrative Medical decision making narrative: [age] white male with history of english's lung and hypertension and prostate cancer, who presents with 1 week history of pulmonary type infection symptoms, worsening of english's lung perhaps. The patient has benefit from steroids in the past. He is on inhalers at home. He is on a 5 mg dose of prednisone at home. I think he would benefit from an x-ray, lab studies, rule out pneumonia, rule out english's lung exacerbate sutton. I do not suspect he has had a DVT given his absence of leg findings, he is not really short of breath. And he has more infectious type symptoms. Will check the above-mentioned studies disposition pending findings. Will give some IV fluid. I think he would benefit from the IV steroid medication as well. Addendum 10:18 a.m. patient's x-ray of his chest by my read shows significant pulmonary congestion, likely chronic inters titial changes but cannot exclude pneumonia. I think a CT scan of his chest would be helpful now be ordered. Secondly his EKG shows sinus rhythm frequent PVCs no obvious ischemic change, slightly prolonged QT. Addendum 11:52 a.m.: The patient had a chest CT scan that shows chronic interstitial changes, the radiologist favored chronic interstitial fibrosis and interstitial lung disease but cannot exclude infectious symptoms. The patient has had infectious type symptoms this week. I think I would treat him with Rocephin and Zithromax as well as steroids. Given the patient's O2 sats from 88% range I think admission to the hospital be appropriate for additional treatment will notify hospitalist than Lab Data Labs: Lab Results 11/04/23 11/04/23 11/04/23 Range/Units 09:34 09:44 09:50 WBC 12.49 H (4.50-11.00) K/uL RBC 4.13 L (4.30-5.90) m/uL Hgb 13.0 L (13.5-17.5) gm/dL Hct 38.0 (37.0-53.0) % MCV 92 (80-100) fL MCH 32 (26-34) pg MCHC 34 (32-36) gm/dL RDW Coeff of Jose 11.7 (11.5-15.5) % Plt Count 176 (140-440) K/uL Neut % (Auto) 78.0 H (42.0-72.0) % Lymph % (Auto) 5.7 L (20-44) % [place] % (Auto) 10.5 (0.0-11.0) % Eos % (Auto) 5.2 (0.0-7.0) % Baso % (Auto) 0.3 (0.0-3.0) % Neut # (Auto) 9.70 H (1.7-7.0) K/uL Lymph # (Auto) 0.70 L (0.90-2.90) K/uL [place] # (Auto) 1.30 H (0.00-0.90) K/UL Eos # (Auto) 0.60 H (0.00-0.50) K/uL Baso # (Auto) 0.00 (0.00-0.30) K/uL Abs Immat Gran (auto) 0.00 (0.00-0.30) K/uL Imm/Tot Granulo (auto) 0.3 % VBG pH (7.32-7.43) VBG pCO2 (40-50) mmHG VBG pO2 (25-47) mmHG VBG HCO3 (21-28) mmol/L Sodium 133 L (135-149) mmol/L Potassium 4.5 (3.6-5.1) mmol/L Chloride 102 (96-114) mmol/L Carbon Dioxide 26 (20-32) mmol/L Anion Gap 5 L (7-15) mEq/L BUN 20 (7-30) mg/dL Creatinine 1.0 (0.5-1.5) mg/dL Estimated Creat Clear 66.92 Estimated GFR 79 ml/min Glucose 113 (60-115) mg/dL Calcium 9.3 (8.4-10.6) mg/dL Total Bilirubin 0.8 (0.1-1.5) mg/dL AST 21 (12-35) U/L ALT 12 (4-50) U/L Alkaline Phosphatase 81 (40-150) U/L C-Reactive Protein 6.3 H (0.5-1.0) mg/dL NT-Pro-B Natriuret Pep 1050 pg/mL Total Protein 6.5 (6.0-8.3) g/dL Albumin 3.5 (3.3-5.0) g/dL SARS-CoV-2 (PCR) Negative SARS-CoV-2 (Negative) Influenza Type A (PCR) Negative PCR FLU A (Negative) Influenza Type B (PCR) Negative PCR FLU B (Negative) RSV (PCR) Negative PCR RSV (Negative) POC Troponin I 0.00 L (0.01-0.04) ng/ml 11/04/23 Range/Units 11:21 WBC (4.50-11.00) K/uL RBC (4.30-5.90) m/uL Hgb (13.5-17.5) gm/dL Hct (37.0-53.0) % MCV (80-100) fL MCH (26-34) pg MCHC (32-36) gm/dL RDW Coeff of Jose (11.5-15.5) % Plt Count (140-440) K/uL Neut % (Auto) (42.0-72.0) % Lymph % (Auto) (20-44) % [place] % (Auto) (0.0-11.0) % Eos % (Auto) (0.0-7.0) % Baso % (Auto) (0.0-3.0) % Neut # (Auto) (1.7-7.0) K/uL Lymph # (Auto) (0.90-2.90) K/uL [place] # (Auto) (0.00-0.90) K/UL Eos # (Auto) (0.00-0.50) K/uL Baso # (Auto) (0.00-0.30) K/uL Abs Immat Gran (auto) (0.00-0.30) K/uL Imm/Tot Granulo (auto) % VBG pH 7.424 (7.32-7.43) VBG pCO2 42 (40-50) mmHG VBG pO2 33.5 (25-47) mmHG VBG HCO3 28 (21-28) mmol/L Sodium (135-149) mmol/L Potassium (3.6-5.1) mmol/L Chloride (96-114) mmol/L Carbon Dioxide (20-32) mmol/L Anion Gap (7-15) mEq/L BUN (7-30) mg/dL Creatinine (0.5-1.5) mg/dL Estimated Creat Clear Estimated GFR ml/min Glucose (60-115) mg/dL Calcium (8.4-10.6) mg/dL Total Bilirubin (0.1-1.5) mg/dL AST (12-35) U/L ALT (4-50) U/L Alkaline Phosphatase (40-150) U/L C-Reactive Protein (0.5-1.0) mg/dL NT-Pro-B Natriuret Pep pg/mL Total Protein (6.0-8.3) g/dL Albumin (3.3-5.0) g/dL SARS-CoV-2 (PCR) (Negative) Influenza Type A (PCR) (Negative) Influenza Type B (PCR) (Negative) RSV (PCR) (Negative) POC Troponin I (0.01-0.04) ng/ml Discharge Plan Discharge Clinical Impression: Pulmonary infection, Adenocarcinoma of prostate, English's lung
[2023-11-04 10:07] LABS: Basophils Percent Auto 0.3 % (0.0-3.0); Eosinophils Percent Auto 5.2 % (0.0-7.0); Immature Granulocytes Pct Auto 0.3 %; Lymphocytes Percent Auto 5.7 % (20-44); Mean Corpuscular HGB Conc 34 gm/dL (32-36); Mean Corpuscular Hemoglobin 32 pg (26-34); Mean Corpuscular Volume 92 fL (80-100); Monocytes Percent Auto 10.5 % (0.0-11.0); Platelet Count* 176 K/uL (140-440); RDW Coefficient of Variation % 11.7 % (11.5-15.5); Red Blood Count 4.13 m/uL (4.30-5.90); Slide Review Reflex No; White Blood Count* 12.49 K/uL (4.50-11.00)
[2023-11-04] MEDS: 0.9 % SODIUM CHLORIDE 500 ML 500 ML IV (10:13)
[2023-11-04] MEDS: METHYLPREDNISOLONE SOD SUCC 62.5 MG/ML (125) 125 MG IVP (10:13)
--- NOTE | 2023-11-04 10:17 | CT_ITS ---
Patient: JENNA BRUCE Facility:?[facility] Patient ID:?[id number] Site Patient ID:?[id number]. Site :?[id number] Study:?CT-Chest W/ 95CC ISOVUE-370 PE PROTOCOL-11/04/2023 11:09:10 AM Ordering Physician:Steve Bailey Final Report: INDICATION: Pneumonia. TECHNIQUE: CT chest PE was acquired with 95 cc Isovue 370 IV contrast. COMPARISON: None. FINDINGS: Heart and vasculature: Contrast opacification of the pulmonary arterial tree is adequate. No sign of pulmonary embolism. Heart size is normal. Thoracic aorta and pulmonary artery are normal in caliber. Patient is status post AVR. Moderate coronary artery calcification. Mild aortic calcification. Lungs and pleura: Extensive areas of subpleural reticulation traction bronchiectasis with additional ground-glass and interstitial opacities throughout both lungs, consistent with chronic interstitial lung disease. Compared to 05/09/2020, findings have progressed moderately. No dense airspace consolidation. No significant pleural effusion. No pneumothorax. Lymph nodes/mediastinum: No mediastinal, hilar, or axillary adenopathy. Chest wall: No masses. Upper abdomen: Status post cholecystectomy. Bones: Degenerative spondylosis. Status post median sternotomy. IMPRESSION: 1. Negative for pulmonary embolism. 2. Chronic interstitial lung disease, moderately progressive since 2019. Ground- glass opacities are predominately chronic and are favored to reflect this chronic interstitial lung disease, although a component of infection can not be entirely excluded. 3. Atherosclerosis. Please note that all CT scans at this facility use dose modulation, iterative reconstruction, and/or weight-based dosing when appropriate to reduce radiation dose to as low as reasonably achievable. Dictated by Oliverio Grigsby MD @ 11/04/2023 11:49:22 AM Signed by:?Oliverio Grigsby MD @11/04/2023 11:49:22 AM (Electronic Signature)
[2023-11-04 10:21] LABS: PCR FLU A Negative PCR FLU A (Negative); PCR FLU B Negative PCR FLU B (Negative); PCR RSV Negative PCR RSV (Negative); SARS PCR* Negative SARS-CoV-2 (Negative)
[2023-11-04 10:30] LABS: C Reactive Protein* 6.3 mg/dL (0.5-1.0)
[2023-11-04 10:42] LABS: Albumin* 3.5 g/dL (3.3-5.0); Chloride* 102 mmol/L (96-114)
[2023-11-04 10:43] LABS: Potassium* 4.5 mmol/L (3.6-5.1); Sodium* 133 mmol/L (135-149)
[2023-11-04 10:45] LABS: Alkaline Phosphatase* 81 U/L (40-150); Anion Gap 5 mEq/L (7-15); Aspartate Amino Transferase* 21 U/L (12-35); Bilirubin Total* 0.8 mg/dL (0.1-1.5); Blood Urea Nitrogen* 20 mg/dL (7-30); Carbon Dioxide* 26 mmol/L (20-32); Est. Creatinine Clearance* 66.92; Estimated Glomerular Filt Rate 79 ml/min; Glucose* 113 mg/dL (60-115); Total Protein* 6.5 g/dL (6.0-8.3)
[2023-11-04 10:46] LABS: Alanine Aminotransferase* 12 U/L (4-50); Calcium* 9.3 mg/dL (8.4-10.6)
--- NOTE | 2023-11-04 10:47 | PC.NURSE ---
coordinated care with [facility] to get all labs needed for upcoming appointment on 11/08 per patient request.
[2023-11-04 11:25] LABS: HCO3 VBG 28 mmol/L (21-28); PCO2 VBG 42 mmHG (40-50); PO2 VBG 33.5 mmHG (25-47); pH VBG 7.424 (7.32-7.43)
[2023-11-04] MEDS: cefTRIAXone 1 GM in 0.9 % SODIUM CHLORIDE Mini-bag 100 ML IVPB (11:54)
[2023-11-04 12:02] LABS: NT Pro B Type NatriureticPept* 1050 pg/mL
--- NOTE | 2023-11-04 12:08 | PC.NURSE ---
Patient ambulated to bathroom independently. Stated he voided. Feeling weak and a little light headed with ambulation. feeling hungry. Tray was ordered. Oxygen was 89% on RA. VBGs were completed and MD requested oxygen to be placed if o2 sats were below 90%. Placed on 2L NC.
[2023-11-04] MEDS: AZITHROMYCIN 500 MG in 0.9 % SODIUM CHLORIDE 250 ml 250 ML 255 MG IVPB (12:37)
--- NOTE | 2023-11-04 13:00 | ED.NURSE ---
Report given to KYRA Corona. All belongings sent with patient to room 259.
--- NOTE | 2023-11-04 14:30 | RESP.RT ---
Pt seen and assessed. 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 PFTs done last Thursday at [facility] in [place]. Doubt they are accurate as pt did not feel well, coughing and having chest pain. Bronchodilators would be beneficial, a cough suppressant at night for comfort and sleep. Pulmonary Rehab as a pt. Close follow up with his rodeo clown in [place]. Do not give oxygen unless SPO2 falls below 88%
--- NOTE | 2023-11-04 14:33 | P.IMHP_ITS ---
Hospitalist- H&P: HPI History of Present Illness Date Seen: 11/04/23 Chief complaint: weak- COPD- cancer pt Narrative: Faizan Simon is a 73 year old man who presents to the emergency department with complaint of 1 week history of increasing cough productive of fisher colored sputum and without hemoptysis, increased dyspnea with exertion, no dyspnea at rest or paroxysmal nocturnal dyspnea, no fever. Known to have pulmonary interstitial fibrosis, chronic obstructive pulmonary disease, asthma. Does not ordinarily require oxygen supplementation. Obtain pulmonary function studies yesterday per his admission specialist with results specified in the past medical history section, consistent with mild restrictive lung disease and obstructive lung disease not responsive to bronchodilators, FEV1 and FVC reduced compared to 2014. Review of Systems Status of ROS: Reports: 10 or more systems reviewed and unremarkable except as noted in History and below Narrative: Some chest discomfort with cough. Denies angina. Denies syncope or near- syncope. Denies palpitations or chest fluttering. Denies nausea or vomiting. Denies dependent edema. Acknowledges a history of aortic valve replacement about 2 and half years ago. Subjectively much improved since that surgery. Denies weight gain. No recent illnesses requiring antiviral or antibiotic therapy. No recent t ravel. No recent trauma or injury. Designates his , Deep, as his power of compliance attorney for health should that be required. Alternatively designates his son, Thien, for the same. Patient requests full resuscitation in the event of cardiopulmonary demise. [facility] Medical History (Updated 11/04/23 @ 14:47 by Jere Cox MD) Primary malignant neoplasm of prostate ?C61 - Malignant neoplasm of prostate (ICD-10) Bicuspid aortic valve ?Q23.1 - Congenital insufficiency of aortic valve (ICD-10) Chronic obstructive pulmonary disease (COPD) ?J44.9 - Chronic obstructive pulmonary disease, unspecified (ICD-10) Asthma ?J45.909 - Unspecified asthma, uncomplicated (ICD-10) Surgical wound dehiscence ?T81.31XA - Disruption of external operation (surgical) wound, not elsewhere classified, initial encounter (ICD-10) Thoracic aortic ectasia ?I77.810 - Thoracic aortic ectasia (ICD-10) Colon polyp ?K63.5 - Polyp of colon (ICD-10) Essential hypertension ?I10 - Essential (primary) hypertension (ICD-10) Pulmonary fibrosis ?J84.10 - Pulmonary fibrosis, unspecified (ICD-10) Gamaliel' lung ?J67.0 - English's lung (ICD-10) Adenocarcinoma of prostate (~11/2021) ?C61 - Malignant neoplasm of prostate (ICD-10) Surgical History (Updated 11/04/23 @ 13:57 by Jere Cox MD) H/O aortic valve replacement with tissue graft ?Z95.4 - Presence of other heart-valve replacement (ICD-10) Hx laparoscopic cholecystectomy ?Z90.49 - Acquired absence of other specified parts of digestive tract (ICD- 10) History of incisional hernia repair (~2010) ?Z98.890 - Other specified postprocedural states (ICD-10) ?Z87.19 - Personal history of other diseases of the digestive system (ICD-10) H/O aortic valve replacement (~09/2020) ?Z95.2 - Presence of prosthetic heart valve (ICD-10) Family History (Updated 11/04/23 @ 13:59 by Jere Cox MD) Brother Alcohol use disorder Brain aneurysm Diabetes Father Prostate cancer Diabetes Heart disease Sister Diabetes Social History Smoking Status: Former smoker Do you use any of these nicotine containing products: None Second hand tobacco smoke exposure: No How often do you have a drink containing alcohol: never How often do you have six or more drinks on one occasion: Never AUDIT-C Alcohol total score: 0 Non-prescribed substance use: denies use service: Yes Meds Home Medications and Allergies Home Medications Medication Instructions Recorded Confirmed Type metoprolol tartrate 25 mg tablet 25 mg PO BID 04/07/22 11/04/23 History multivitamin 1 tab PO QAM 04/07/22 11/04/23 History prednisone 5 mg tablet 5 mg PO DAILY 02/03/23 11/04/23 History acetaminophen 500 mg tablet 1,000 mg PO TID 11/04/23 11/04/23 History albuterol sulfate 90 mcg/actuation 2 puff inhalation Q4H PRN wheezing 11/04/23 11/04/23 History aerosol inhaler (Ventolin HFA) aspirin 81 mg tablet,delayed 81 mg PO DAILY 11/04/23 11/04/23 History release (Adult Low Dose Aspirin) calcium carbonate 600 mg-vitamin 1 tab PO BID 11/04/23 11/04/23 History D3 10 mcg (400 unit) tablet ipratropium 0.5 mg-albuterol 3 mg 3 ml inhalation QID PRN dyspnea 11/04/23 11/04/23 History (2.5 mg base)/3 mL nebulization soln rosuvastatin 20 mg tablet 20 mg PO HS 11/04/23 11/04/23 History umeclidinium 62.5 mcg-vilanterol 1 inh inhalation DAILY 11/04/23 11/04/23 History 25 mcg/actuation powdr for inhalation (Anoro Ellipta) Allergies Allergy/AdvReac Type Severity Reaction Status Date / Time oxybutynin AdvReac Mild Verified 08/03/23 11:10 Exam Narrative: Exam Narrative: I examine him in the hospital emergency department. Appears comfortable and in no acute distress. Oxygen supplementation via nasal cannula 2 liters/minute with saturations mid 90s and respiratory rate 14-20 at rest. Vision and hearing are grossly normal. Alert, oriented to self, place, time, situation. From the, articulate, cooperative. No icterus or jaundice. No cyanosis. No rashes or petechiae. External auditory canals are clear. Tympanic membranes are normal. Midline nasal septum. Dentition in fair repair. Dry buccal mucosa. Midline trachea. No JVD or hepatojugular reflux. No carotid bruits. Head neck lymphadenopathy is negative. Lungs with inspiratory and expiratory wheezing. Scattered rhonchi, diffuse crackles bibasilarly. Heart tones with regular rhythm, normal S1-S2. Cardiac murmur noted. Abdomen with active bowel sounds, soft, nontender. Extremities without edema. Palpable pulses upper and lower extremities. Independent transfer, station, and gait. Const: Vital Signs, click to edit/add: Vital Signs - 24 hr 11/04/23 09:23 11/04/23 10:02 11/04/23 10:51 Temperature 97.4 F L Pulse Rate Pulse Rate [Pulse Oximeter] 77 85 Pulse Rate [Right Pulse Oximeter] Respiratory Rate 18 16 Blood Pressure Blood Pressure [Ri ght Arm] Blood Pressure [Ri ght Upper Arm] 130/82 120/76 Pulse Oximetry 91 90 88 Oxygen Delivery Me thod Room Air Room Air Oxygen Flow Rate 11/04/23 11:17 11/04/23 11:30 11/04/23 11:31 Temperature Pulse Rate 87 84 87 Pulse Rate [Pulse Oximeter] Pulse Rate [Right Pulse Oximeter] Respiratory Rate 16 Blood Pressure 118/73 Blood Pressure [Ri ght Arm] Blood Pressure [Ri ght Upper Arm] Pulse Oximetry 91 92 93 Oxygen Delivery Me thod Oxygen Flow Rate 11/04/23 11:45 11/04/23 12:00 11/04/23 12:02 Temperature Pulse Rate 87 84 91 Pulse Rate [Pulse Oximeter] Pulse Rate [Right Pulse Oximeter] Respiratory Rate Blood Pressure 114/92 H Blood Pressure [Ri ght Arm] Blood Pressure [Ri ght Upper Arm] Pulse Oximetry 90 89 95 Oxygen Delivery Me thod Nasal Cannula Oxygen Flow Rate 2 11/04/23 12:03 11/04/23 12:05 11/04/23 12:15 Temperature Pulse Rate 80 83 Pulse Rate [Pulse Oximeter] Pulse Rate [Right Pulse Oximeter] Respiratory Rate Blood Pressure Blood Pressure [Ri ght Arm] Blood Pressure [Ri ght Upper Arm] Pulse Oximetry 93 94 96 Oxygen Delivery Me thod Nasal Cannula Oxygen Flow Rate 2 11/04/23 12:30 11/04/23 12:31 11/04/23 12:45 Temperature Pulse Rate 74 80 86 Pulse Rate [Pulse Oximeter] Pulse Rate [Right Pulse Oximeter] Respiratory Rate 16 Blood Pressure 124/77 Blood Pressure [Ri ght Arm] Blood Pressure [Ri ght Upper Arm] Pulse Oximetry 95 94 96 Oxygen Delivery Me thod Oxygen Flow Rate 11/04/23 13:55 11/04/23 14:27 11/04/23 14:28 Temperature 98.2 F Pulse Rate Pulse Rate [Pulse Oximeter] Pulse Rate [Right Pulse Oximeter] 92 Respiratory Rate 22 14 Blood Pressure Blood Pressure [Ri ght Arm] 122/76 Blood Pressure [Ri ght Upper Arm] Pulse Oximetry 95 96 Oxygen Delivery Me thod Room Air Room Air Oxygen Flow Rate Hospitalist - H&P: Result Labs Labs: Short CBC 11/04/23 Range/Units 09:50 WBC 12.49 H (4.50-11.00) K/uL Hgb 13.0 L (13.5-17.5) gm/dL Hct 38.0 (37.0-53.0) % Plt Count 176 (140-440) K/uL BMP 11/04/23 09:50 Sodium 133 L Potassium 4.5 Chloride 102 Carbon Dioxide 26 BUN 20 Creatinine 1.0 Glucose 113 Calcium 9.3 Liver Function 11/04/23 Range/Units 09:50 Total Bilirubin 0.8 (0.1-1.5) mg/dL AST 21 (12-35) U/L ALT 12 (4-50) U/L Alkaline Phosphatase 81 (40-150) U/L Albumin 3.5 (3.3-5.0) g/dL ECG Attestation: I personally reviewed and interpreted this ECG as follows: ECG interpretation date: 11/04/23 Prior ECG tracings: not available for review Interpretation: Normal sinus rhythm with frequent VPCs. Imaging CT scan - chest: Attestation: I have reviewed the pertinent imaging results. Radiologist's impression: 1. Negative for pulmonary embolism. 2. Chronic interstitial lung disease, moderately progressive since 2019. Ground- glass opacities are predominately chronic and are favored to reflect this chronic interstitial lung disease, although a component of infection can not be entirely excluded. 3. Atherosclerosis. Assessment and Plan Assessment and plan (1) Chronic obstructive pulmonary disease (COPD): Problem comment: - 11/03/23: FVC reduced; FEV1 and FEV1:FVC ratio normal; no bronchodilator response. Lung volumes reduced. Diffusion capacity reduced. Mild restriction and mildly reduced diffusion capacity. Compared to PFTs 12/23/13, FEV1 and FVC have decreased. - Teacher Of The Sight Impaired: Luis Perdomo - 11/04/23: COPD exacerbation; treat with oral steroids, azithromycin, ceftriaxone; add Aerobika device use; bronchodilator nebulizer therapy; continue with inhalers Status: Acute (2) Pulmonary fibrosis: Status: Acute (3) Asthma: Status: Acute (4) Acute hypoxemic respiratory failure: Problem comment: - see plan under COPD above. Oxygen supplementation as needed. Respiratory therapy consultation. Status: Acute Plan 1. Reviewed impression with patient and answered his questions 2. Continue other supportive efforts 3. Patient agreeable with above stated plans and recommendations Total Time Spent Total Time Spent: 60 minutes
[2023-11-04] MEDS: IPRAT-ALBUT 0.5-2.5 MG/3 ML NEB 1 NEB IH ×2 (15:33→21:24)
--- NOTE | 2023-11-04 19:24 | PC.NURSE ---
The patient arrived on the floor this afternoon. Reported increased SOB with activity. VSS on RA O2 @95%. No reports of pain. Bilateral posterior inspiratory/expiatory wheezing auscultated. Intermittent cough, small amount of cream phlegm when able to pass mucus. Reported frequency with urination due to prostate cancer. Up ad harsha as tolerated if no weakness and dizziness. The patient reports feeling way better than when he came in. Call light within reach. Chloe RAE BSN
[2023-11-04] MEDS: ROSUVASTATIN CALCIUM 10 MG TABLET 20 MG PO (21:22)
[2023-11-04] MEDS: SODIUM CHLORIDE 0.9 % (FLUSH) 10 ML SYRINGE 5 ML IVF (21:23)
[2023-11-04] MEDS: ACETAMINOPHEN 500 MG TABLET 1000 MG PO (21:23)
[2023-11-04] MEDS: METOPROLOL TARTRATE 25 MG TABLET PO (21:23)
[2023-11-04] MEDS: ENOXAPARIN 40 MG/0.4 ML INJ SUBCUT (21:23)
[2023-11-05 03:00] VITALS: BP 113/85; PULSE 79; RESP 16; TEMP 35.9; O2SAT 97
[2023-11-05 06:29] LABS: HCO3 VBG 27 mmol/L (21-28); Lactate* 0.7 mmol/L (0.5-1.9); PCO2 VBG 42 mmHG (40-50); PO2 VBG 54.1 mmHG (25-47); pH VBG 7.425 (7.32-7.43)
[2023-11-05 06:39] LABS: Hematocrit 34.9 % (37.0-53.0); Hemoglobin* 11.9 gm/dL (13.5-17.5); Mean Corpuscular HGB Conc 34 gm/dL (32-36); Mean Corpuscular Hemoglobin 32 pg (26-34); Mean Corpuscular Volume 92 fL (80-100); Platelet Count* 164 K/uL (140-440); Red Blood Count 3.78 m/uL (4.30-5.90)
[2023-11-05 06:47] LABS: Chloride* 105 mmol/L (96-114); Potassium* 3.6 mmol/L (3.6-5.1); Sodium* 136 mmol/L (135-149)
[2023-11-05 06:50] LABS: Anion Gap 5 mEq/L (7-15); Blood Urea Nitrogen* 21 mg/dL (7-30); Carbon Dioxide* 26 mmol/L (20-32); Creatinine* 0.9 mg/dL (0.5-1.5); Est. Creatinine Clearance* 66.92; Estimated Glomerular Filt Rate 90 ml/min
[2023-11-05 06:51] LABS: Calcium* 9.1 mg/dL (8.4-10.6); Glucose* 97 mg/dL (60-115)
[2023-11-05 06:52] LABS: Slide Review Reflex No
[2023-11-05 07:08] LABS: Procalcitonin* 0.05 ng/mL (<0.50)
[2023-11-05 07:20] LABS: C Reactive Protein* 10.5 mg/dL (0.5-1.0)
[2023-11-05 07:43] VITALS: BP 132/81; PULSE 76; RESP 18; TEMP 36.1; O2SAT 97
--- NOTE | 2023-11-05 07:53 | PC.NURSE ---
End of shift [id number]: Denies any pain or shortness of breath. O2 sats maintained >88% on room air throughout the night. Independent with ambulation.
[2023-11-05] MEDS: IPRAT-ALBUT 0.5-2.5 MG/3 ML NEB 1 NEB IH ×3 (08:54→19:33)
[2023-11-05] MEDS: MULTIVITAMIN/MINERALS 1 TABLET 1 TAB PO (08:55)
[2023-11-05] MEDS: METOPROLOL TARTRATE 25 MG TABLET PO ×2 (08:56→21:12)
[2023-11-05] MEDS: predniSONE 20 MG TABLET 40 MG PO (08:56)
[2023-11-05] MEDS: AZITHROMYCIN 250 MG TABLET PO (08:56)
[2023-11-05] MEDS: ASPIRIN 81 MG TABLET EC PO (08:56)
[2023-11-05] MEDS: ACETAMINOPHEN 500 MG TABLET 1000 MG PO ×3 (08:56→21:11)
[2023-11-05] MEDS: cefTRIAXone 1 GM in 0.9 % SODIUM CHLORIDE Mini-bag 100 ML IVPB (08:56)
[2023-11-05] MEDS: SODIUM CHLORIDE 0.9 % (FLUSH) 10 ML SYRINGE 5 ML IVF ×2 (08:57→21:13)
[2023-11-05] MEDS: NYSTATIN POWDER 1 APPLIC TOPICAL ×2 (08:58→21:13)
[2023-11-05 09:25] VITALS: BMI 29.3
[2023-11-05 11:13] VITALS: BP 121/77; PULSE 71; RESP 20; TEMP 36; O2SAT 92
[2023-11-05 15:00] VITALS: BP 134/68; PULSE 41; RESP 18; TEMP 36.4; O2SAT 98
--- NOTE | 2023-11-05 15:04 | PC.NURSE ---
Pt alert and oriented. Pt had no complaints of pain. Pt up independently in room. Pt was not on oxygen during shift and maintained saturations 92-97%. Pt has a wet productive cough and is using aerobika at bedside. VSS. Pt to likely discharge home tomorrow.?
--- NOTE | 2023-11-05 16:49 | PM.IMPN1 ---
Progress Note: A&P Assessment and plan (1) Chronic obstructive pulmonary disease (COPD): Problem details: - 11/03/23: FVC reduced; FEV1 and FEV1:FVC ratio normal; no bronchodilator response. Lung volumes reduced. Diffusion capacity reduced. Mild restriction and mildly reduced diffusion capacity. Compared to PFTs 12/23/13, FEV1 and FVC have decreased. - Bilingual Kindergarten Teacher: Luis Perdomo - 11/04/23: COPD exacerbation; treat with oral steroids, azithromycin, ceftriaxone; add Aerobika device use; bronchodilator nebulizer therapy; continue with inhalers Status: Acute (2) Pulmonary fibrosis: Problem details: - chronic, from what patient tells me it related to significant exposure to silica in the past Status: Acute (3) Asthma: Status: Acute (4) Acute hypoxemic respiratory failure: Problem details: - see plan under COPD above. Oxygen supplementation as needed - no longer requiring oxygen supplementation today as he did when he was admitted. Respiratory therapy consultation. Status: Acute Plan 1. Patient agreeable with above stated plans and recommendations. Answered his questions. 2. Anticipate patient may be in a position to be discharged home as early as tomorrow if his condition continues to be stable and improved. Time Spent With Patient Total time spent: 30 minutes Subjective Date Seen: 11/05/23 Interval history: History of present illness: 73 year old man who presents to the emergency department with complaint of 1 week history of increasing cough productive of fisher colored sputum and without hemoptysis, increased dyspnea with exertion, no dyspnea at rest or paroxysmal nocturnal dyspnea, no fever. Known to have pulmonary interstitial fibrosis, chronic obstructive pulmonary disease, asthma. Does not ordinarily require oxygen supplementation. Obtain pulmonary function studies yesterday per his director television news with results specified in the past medical history section, consistent with mild restrictive lung disease and obstructive lung disease not responsive to bronchodilators, FEV1 and FVC reduced compared to 2013. Hospital day 2. No longer requiring oxygen supplementation. Cough is slowly improving. His dad sense of weakness is slowly improving. Tolerating increased activity. Exam Narrative: Exam Narrative: Examine him in his hospital room. No longer dyspneic or tachypneic as he was yesterday. Appears comfortable no acute distress. Still has a dry hacky cough productive of sputum at times but less so than yesterday. Utilizing nebulizers and Aerobika device efficiently. Lungs with less wheezing less rhonchi and LEs reveals than yesterday. Inspiratory and expiratory efforts improved compared to yesterday. Heart tones with regular rhythm. Abdomen benign. Independent transfer, station, gait. Const: Vital Signs, click to edit/add: Vital Signs - 24 hr 11/04/23 19:00 11/04/23 23:00 11/04/23 23:00 Temperature 96.6 F L Pulse Rate [Right Pulse Oximeter] 87 87 Respiratory Rate 18 18 18 Blood Pressure [Ri ght Arm] 127/80 Pulse Oximetry 90 90 Oxygen Delivery Me thod Room Air Room Air Oxygen Flow Rate 11/04/23 23:00 11/05/23 03:00 11/05/23 07:43 Temperature 96.6 F L 96.6 F L 96.9 F L Pulse Rate [Right Pulse Oximeter] 87 79 76 Respiratory Rate 18 16 18 Blood Pressure [Ri ght Arm] 127/80 113/85 132/81 Pulse Oximetry 90 97 97 Oxygen Delivery Me thod Room Air Room Air Room Air Oxygen Flow Rate 2 11/05/23 07:43 11/05/23 11:13 11/05/23 15:00 Temperature 96.8 F L Pulse Rate [Right Pulse Oximeter] 71 41 L Respiratory Rate 18 20 18 Blood Pressure [Ri ght Arm] 121/77 Pulse Oximetry 97 92 Oxygen Delivery De thod Room Air Room Air Oxygen Flow Rate 11/05/23 15:00 11/05/23 15:00 Temperature 97.6 F Pulse Rate [Right Pulse Oximeter] 41 L Respiratory Rate 18 18 Blood Pressure [Ri ght Arm] 134/68 Pulse Oximetry 98 98 Oxygen Delivery Me thod Room Air Room Air Oxygen Flow Rate Documenting provider has reviewed patient's vital signs: yes Labs Labs: Laboratory Results - last 24 hr 11/05/23 06:20 WBC 7.90 RBC 3.78 L Hgb 11.9 L Hct 34.9 L MCV 92 MCH 32 MCHC 34 Plt Count 164 VBG pH 7.425 VBG pCO2 42 VBG pO2 54.1 H VBG HCO3 27 Sodium 136 Potassium 3.6 Chloride 105 Carbon Dioxide 26 Anion Gap 5 L BUN 21 Creatinine 0.9 Estimated Creat Clear 66.92 Estimated GFR 90 Glucose 97 Lactate 0.7 Calcium 9.1 Magnesium 2.0 C-Reactive Protein 10.5 H Procalcitonin 0.05
[2023-11-05 19:00] VITALS: BP 131/81; PULSE 60; RESP 18; TEMP 35.7; O2SAT 100
[2023-11-05] MEDS: ENOXAPARIN 40 MG/0.4 ML INJ SUBCUT (21:11)
[2023-11-05] MEDS: ROSUVASTATIN CALCIUM 10 MG TABLET 20 MG PO (21:12)
--- NOTE | 2023-11-05 23:28 | PC.NURSE ---
Shift Note: Pt friendly and cooperative. Denies pain. LS clear with mild expiratory wheeze on right side throughout. VS WNL and pt has been afebrile. Moves well with SBA and has been diligent with his aerobika use. Frequent urination d/t enlarged prostate but pt utilizing call light appropriately. Multiple BM's this evening, pt states they are soft, but not not diarrhea. Plans to discharge home tomorrow.
[2023-11-06 05:36] VITALS: BP 143/99; PULSE 66; RESP 18; O2SAT 96
[2023-11-06 05:50] VITALS: PULSE 76
--- NOTE | 2023-11-06 05:55 | PC.NURSE ---
PT SLEEPING WHEN I TOOK OVER CARE AND REQUESTED NOT TO BE AWAKEN FOR 2AM NEB. ALSO DID NOT WAKE PT TO GET VITALS AT 2330 PT STABLE AT THIS TIME. DID TALK WITH DR LESTER ABOUT THIS AND SHE WAS OK WITH IT. PT UP BETWEEN 230-4. WT,MEDS,ASSESSMENT AND VITALS GOTTEN AT 530. PT BACK TO BED TO GET A LITTLE MORE SLEEP.
[2023-11-06 07:00] VITALS: BP 121/77; PULSE 75; RESP 18; TEMP 36.7; O2SAT 95; O2SAT 96
[2023-11-06 08:08] VITALS: TEMP 36.4
[2023-11-06] MEDS: predniSONE 20 MG TABLET 40 MG PO (08:08)
[2023-11-06] MEDS: ACETAMINOPHEN 500 MG TABLET 1000 MG PO (08:08)
[2023-11-06] MEDS: IPRAT-ALBUT 0.5-2.5 MG/3 ML NEB 1 NEB IH (08:08)
[2023-11-06] MEDS: ASPIRIN 81 MG TABLET EC PO (08:08)
[2023-11-06] MEDS: MULTIVITAMIN/MINERALS 1 TABLET 1 TAB PO (08:09)
[2023-11-06] MEDS: AZITHROMYCIN 250 MG TABLET PO (08:09)
[2023-11-06] MEDS: METOPROLOL TARTRATE 25 MG TABLET PO (08:09)
[2023-11-06] MEDS: cefTRIAXone 1 GM in 0.9 % SODIUM CHLORIDE Mini-bag 100 ML IVPB (08:10)
[2023-11-06] MEDS: SODIUM CHLORIDE 0.9 % (FLUSH) 10 ML SYRINGE 5 ML IVF (08:11)
[2023-11-06] MEDS: NYSTATIN POWDER 1 APPLIC TOPICAL (08:13)
--- NOTE | 2023-11-06 14:35 | PM.DS1 ---
DS: Providers Provider Date Seen: 11/06/23 Date of admission: 11/04/23 13:22 Primary care physician: Jacquelyn Fleming PA-C Admitting Clinician: Jere Cox MD Consults: 11/04/23 13:22 Consult to Respiratory Therapy [CONS] Routine Comment: Reason(s) for RT Consult:: Consult Comment: Aerobika device use Attending Physician on discharge: Jere Cox MD Date of Discharge: 11/06/23 DS: Diagnosis Discharge Diagnosis (1) Chronic obstructive pulmonary disease with acute exacerbation: Status: Acute (2) Acute hypoxemic respiratory failure: Status: Acute Problem details: - see plan under COPD above. Oxygen supplementation as needed - no longer requiring oxygen supplementation today as he did when he was admitted. Respiratory therapy consultation. (3) Chronic obstructive pulmonary disease (COPD): Status: Acute Problem details: - 11/03/23: FVC reduced; FEV1 and FEV1:FVC ratio normal; no bronchodilator response. Lung volumes reduced. Diffusion capacity reduced. Mild restriction and mildly reduced diffusion capacity. Compared to PFTs 12/23/13, FEV1 and FVC have decreased. - Strategies Analyst: Luis Perdomo - 11/04/23: COPD exacerbation; treat with oral steroids, azithromycin, ceftriaxone; add Aerobika device use; bronchodilator nebulizer therapy; continue with inhalers (4) Asthma: Status: Acute (5) Pulmonary fibrosis: Status: Acute Problem details: - chronic, from what patient tells me it related to significant exposure to silica in the past (6) Essential hypertension: Status: Acute (7) Adenocarcinoma of prostate: Status: Acute (8) Hot flashes: Status: Acute DS: Summary Hospital Course Hospital Course: 73-year-old man presented with 1 week history of cough productive of white to fisher sputum, dyspnea. Found to have COPD exacerbation. Treated accordingly and condition improved. When 1st presented also had hypoxemic respiratory failure requiring oxygen supplementation. No longer required oxygen supplementation on date of discharge. Status at Discharge Functional status at discharge: independent ambulation Time Spent with Patient Time attestation: Total time spent providing and/or coordinating discharge services: Time spent: Less than 30 minutes Exam Narrative: Exam Narrative: Examine him in his hospital room. No longer dyspneic or tachypneic as he was yesterday. Appears comfortable no acute distress. Still has a dry hacky cough productive of sputum at times but less so than yesterday. Utilizing nebulizers and Aerobika device efficiently. Lungs with less wheezing, less rhonchi and less basilar rales than yesterday. Inspiratory and expiratory efforts improved compared to yesterday. Heart tones with regular rhythm. Abdomen benign. Independent transfer, station, gait. Const: Vital Signs, click to edit/add: Vital Signs - 24 hr 11/05/23 15:00 11/05/23 15:00 11/05/23 15:00 Temperature 97.6 F Pulse Rate [Right Pulse Oximeter] 41 L 41 L Respiratory Rate 18 18 18 Blood Pressure [Ri ght Arm] 134/68 Pulse Oximetry 98 98 Oxygen Delivery Me thod Room Air Room Air 11/05/23 19:00 11/06/23 05:36 11/06/23 05:46 Temperature 96.2 F L Pulse Rate [Right Pulse Oximeter] 60 66 Respiratory Rate 18 18 Blood Pressure [Ri ght Arm] 131/81 143/99 H Pulse Oximetry 100 96 Oxygen Delivery Me thod Room Air Room Air Room Air 11/06/23 05:50 11/06/23 07:00 11/06/23 07:00 Temperature 98.1 F Pulse Rate [Right Pulse Oximeter] 76 75 75 Respiratory Rate 18 18 Blood Pressure [Ri ght Arm] 121/77 Pulse Oximetry 96 Oxygen Delivery Me thod Room Air 11/06/23 07:00 11/06/23 08:08 Temperature 97.5 F L Pulse Rate [Right Pulse Oximeter] Respiratory Rate 18 Blood Pressure [Ri ght Arm] Pulse Oximetry 95 Oxygen Delivery Me thod Room Air Discharge Plan Discharge Disposition: Home, Self-Care Date of Admission: 11/04/23 13:22 Attending Provider on Discharge: Jere Cox Primary Care Provider: Jacquelyn Fleming Condition: Improved Anticipated Discharge Date/Time: 11/06/23 11:30 Discharge Medications: New azithromycin 250 mg tablet 250 mg PO DAILY 2 Days Qty: 2 0RF prednisone 20 mg tablet 20 mg PO DAILY 2 Days Qty: 2 0RF Continued prednisone 5 mg tablet 5 mg PO DAILY metoprolol tartrate 25 mg tablet 25 mg PO BID multivitamin Tablet 1 tab PO QAM acetaminophen 500 mg tablet 1,000 mg PO TID ipratropium-albuterol 0.5 mg-3 mg(2.5 mg base)/3 mL solution for nebulization 3 ml INHALATION QID PRN (Reason: dyspnea) albuterol sulfate [Ventolin HFA] 90 mcg/actuation HFA aerosol inhaler 2 puff INHALATION Q4H PRN (Reason: wheezing) aspirin [Adult Low Dose Aspirin] 81 mg tablet,delayed release (DR/EC) 81 mg PO DAILY rosuvastatin 20 mg tablet 20 mg PO HS Anoro Ellipta 62.5-25 mcg/actuation blister with device 1 inh INHALATION DAILY calcium carbonate-vitamin D3 600 mg-10 mcg (400 unit) tablet 1 tab PO BID Erleada 60 mg tablet 240 mg PO QDAY Qty: 120 2RF Discharge Orders: Discharge Order (Routine); Ordered 11/06/23 Ordered By: Jere Cox Patient Education: Prednisone (By mouth), Azithromycin (By mouth) Additional Instructions: 1. Optimal means of administering your inhalers, as instructed by respiratory therapist in hospital. 2. 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 3. New appointment with your primary care physician/partner as set up. 4. Return to clinic or hospital sooner if your condition warrants. Activity Level: Activity as Tolerated Discharge Diet: Regular Follow Up Appointments: Jacquelyn Fleming PA-C [Primary Care Provider] - 11/13/23 2:00 pm ([facility] for post-hospitalization follow-up for COPD exacerbation) Forms: [employer] Info Instructions
== END 2023-11-06 11:10 | disposition home or self-care (01) | DRG 190 ==
LOC: ED 10:02 → MEDSURG 13:03
PROVIDERS: Admitting Provider Internal Medicine; Emergency Provider Family Medicine; PCP Physician Assistant Medical; Visit Provider Internal Medicine
DX: J44.1 Chronic obstructive pulmonary disease with (acute) exacerbation (principal); J96.01 Acute respiratory failure with hypoxia; J84.10 Pulmonary fibrosis, unspecified; Z95.2 Presence of prosthetic heart valve; Z95.4 Presence of other heart-valve replacement; I10 Essential (primary) hypertension; J67.0 Farmer's lung; C61 Malignant neoplasm of prostate; Z87.891 Personal history of nicotine dependence
CPT/HCPCS: 36415; 71045; 71275; 80048; 80053; 82803; 83605; 83735; 83880; 84145; 84484; 85025; 85027; 86140; 87631; 93005; 94640; 94664; 94761; 99285; A9153; A9270; J0456; J0696; J1650; J2930; J7030; J7050; J7512; Q9967

== ENCOUNTER 2024-01-10 09:07 | Emergency (ER) | payer MEDICARE, SELFPAY ==
[2024-01-10 09:11] VITALS: BP 146/70; PULSE 43; RESP 16; TEMP 35.8; O2SAT 94; BMI 30.1
--- NOTE | 2024-01-10 09:32 | ED_ITS ---
HPI - General Adult General Time Seen by Provider: 09:32 Date Seen: 01/10/24 Chief complaint: Back Injury/Pain Stated complaint: lower back pain Time Seen by Provider: 01/10/24 09:32 Source: patient, family, RN notes reviewed and old records reviewed Mode of arrival: ambulatory Limitations: no limitations History of Present Illness HPI narrative: 73-year-old male with history of COPD, pulmonary fibrosis, hypertension who presents today with back pain. Patient with atraumatic low back pain for about a week, predominantly on the left and now with some radiation into the left lateral thigh. 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 Has taken ibuprofen and Tylenol for this. Denies bowel or bladder incontinence, no weakness or numbness of the lower extremities. No flank pain, no urinary symptoms. Related Data Home Medications Medication Instructions Recorded Confirmed metoprolol tartrate 25 mg tablet 25 mg PO BID 04/07/22 01/10/24 multivitamin 1 tab PO QAM 04/07/22 01/10/24 prednisone 5 mg tablet 5 mg PO DAILY 02/03/23 01/10/24 albuterol sulfate 90 mcg/actuation 2 puff inhalation Q4H PRN wheezing 11/04/23 01/10/24 aerosol inhaler (Ventolin HFA) aspirin 81 mg tablet,delayed 81 mg PO DAILY 11/04/23 01/10/24 release (Adult Low Dose Aspirin) calcium carbonate 600 mg-vitamin 1 tab PO BID 11/04/23 01/10/24 D3 10 mcg (400 unit) tablet ipratropium 0.5 mg-albuterol 3 mg 3 ml inhalation QID PRN dyspnea 11/04/23 01/10/24 (2.5 mg base)/3 mL nebulization soln rosuvastatin 20 mg tablet 20 mg PO HS 11/04/23 01/10/24 umeclidinium 62.5 mcg-vilanterol 1 inh inhalation DAILY 11/04/23 01/10/24 25 mcg/actuation powdr for inhalation (Anoro Ellipta) acetaminophen 500 mg tablet 1,000 mg PO TID PRN 11/09/23 01/10/24 Previous Rx's Medication Instructions Recorded apalutamide 60 mg tablet (Erleada) 240 mg (4 x 60 mg) PO QDAY #120 07/29/23 tabs gabapentin 100 mg capsule 100 mg PO TID #21 caps 01/10/24 oxycodone 5 mg capsule 5 mg PO Q6H PRN pain #7 caps 01/10/24 prednisone 10 mg tablet 10 mg PO DIRECTED #30 tabs 01/10/24 Allergies Allergy/AdvReac Type Severity Reaction Status Date / Time oxybutynin AdvReac Mild Verified 11/09/23 15:01 [facility] Medical History (Updated 01/10/24 @ 10:16 by Forest Grissom MD) English's lung ?J67.0 - English's lung (ICD-10) Pulmonary infection ?J18.9 - Pneumonia, unspecified organism (ICD-10) Primary malignant neoplasm of prostate ?C61 - Malignant neoplasm of prostate (ICD-10) Bicuspid aortic valve ?Q23.1 - Congenital insufficiency of aortic valve (ICD-10) Chronic obstructive pulmonary disease (COPD) ?J44.9 - Chronic obstructive pulmonary disease, unspecified (ICD-10) Asthma ?J45.909 - Unspecified asthma, uncomplicated (ICD-10) Surgical wound dehiscence ?T81.31XA - Disruption of external operation (surgical) wound, not elsewhere classified, initial encounter (ICD-10) Thoracic aortic ectasia ?I77.810 - Thoracic aortic ectasia (ICD-10) Colon polyp ?K63.5 - Polyp of colon (ICD-10) Essential hypertension ?I10 - Essential (primary) hypertension (ICD-10) Pulmonary fibrosis ?J84.10 - Pulmonary fibrosis, unspecified (ICD-10) Honaker' lung ?J67.0 - English's lung (ICD-10) Adenocarcinoma of prostate (~11/2021) ?C61 - Malignant neoplasm of prostate (ICD-10) Surgical History (Updated 11/04/23 @ 13:57 by Jere Cox MD) H/O aortic valve replacement with tissue graft ?Z95.4 - Presence of other heart-valve replacement (ICD-10) Hx laparoscopic cholecystectomy ?Z90.49 - Acquired absence of other specified parts of digestive tract (ICD- 10) History of incisional hernia repair (~2010) ?Z98.890 - Other specified postprocedural states (ICD-10) ?Z87.19 - Personal history of other diseases of the digestive system (ICD-10) H/O aortic valve replacement (~09/2020) ?Z95.2 - Presence of prosthetic heart valve (ICD-10) Family History (Updated 11/04/23 @ 13:59 by Jere Cox MD) Brother Alcohol use disorder Brain aneurysm Diabetes Father Prostate cancer Diabetes Heart disease Sister Diabetes Social History What is your current living situation?: I presently have a place to live Problems where you live: no known problems Problems where you live details: none In the past 12 months, utilities in danger of being shut off: no In past 12 months, lack of transportation kept you from medical appts, meetings, work, or getting things needed for daily living: no In the past 12 mos, have been you worried that your food would run out before you had money to buy more?: never true In the past 12 mos, the food you bought just didn't last and you didn't have money to buy more?: never true Smoking Status: Former smoker Do you use any of these nicotine containing products: None Second hand tobacco smoke exposure: No How often do you have a drink containing alcohol: never How often do you have six or more drinks on one occasion: Never AUDIT-C Alcohol total score: 0 Non-prescribed substance use: denies use How often does anyone, including family, friends and others, physically hurt you : never How often does anyone, including family, friends and others, insult or talk down to you: never How often does anyone, including family, friends and others, threaten you with harm: never How often does anyone, including family, friends and others, scream or curse at you: never service: Yes Exam Narrative: Exam Narrative: General: Well-developed and well-nourished, no acute distress Head: Atraumatic and normocephalic Eyes: Pupils are equal reactive, extraocular motions intact, conjunctiva clear ENT: External nose and ears are normal, posterior pharynx without erythema or exudate Neck: No midline cervical tenderness, full spontaneous range of motion the neck, trachea midline, no adenopathy Heart: Regular rate and rhythm no murmurs or thrills Lungs: Diffuse pulmonary rubs Abdomen: Soft, nontender, nondistended with active bowel sounds Musculoskeletal: Left lumbar paraspinous and buttock tenderness Neurologic: Awake, alert, and oriented x3, no gross focal neurologic deficits, cranial nerves intact as tested Psych: Mood and affect are appropriate Skin: No rashes Const: Vital Signs, click to edit/add: Vital Signs - 24 hr 01/10/24 09:11 01/10/24 09:52 01/10/24 10:10 Temperature 96.5 F L Pulse Rate 73 57 L Pulse Rate [Pulse Oximeter] 43 L Respiratory Rate 16 Blood Pressure Blood Pressure [Ri ght Upper Arm] 146/70 H Pulse Oximetry 94 90 93 Oxygen Delivery Me thod Room Air 01/10/24 10:12 01/10/24 10:15 Temperature Pulse Rate 60 73 Pulse Rate [Pulse Oximeter] Respiratory Rate Blood Pressure 128/75 Blood Pressure [Ri ght Upper Arm] Pulse Oximetry 91 91 Oxygen Delivery Me thod Course Course ED Course: Patient seen and examined, reviewed prior emergency department visit from November 03 when patient was seen with cough and congestion, at that time vital signs stable with no fever or tachycardia, CT scan demonstrated chronic interstitial fibrosis, was started on Rocephin and azithromycin as well as prednisone, patient was admitted to the hospital due to hypoxia at that time. Patient presents with atraumatic low back pain with radiation to the left lateral thigh. On exam cough of history of sensation lower extremities intact, tenderness of the left buttock of left low lumbar paraspinous area. Symptoms are most consistent with sciatica, however patient does have a history of prostate cancer and so risk for metastatic disease as well. Patient has no objective neurologic symptoms or concerns today, lumbar MRI would be preferred test to evaluate for metastatic disease, however in absence of neurologic deficits or evidence of cauda equinus syndrome, this can be done as an outpatient if the patient does not improve as expected. CT scan ordered to evaluate for gross bony abnormalities. Toradol IM is given in the emergency department. And taste and patient discharged with gabapentin, prednisone burst, follow-up with primary care for consideration for further imaging or physical therapy. Reevaluation(s) Time of Reevaluation #1: 10:47 Reevaluation #1: CT scan of the lumbar spine independently interpreted by me does not demonstrate acute bony abnormality, radiology interpretation reviewed. Patient is stable for discharge Vital Signs Vital signs: Initial Vital Signs Temperature 96.5 F L 01/10/24 09:11 Temperature Source Temporal Artery Scan 01/10/24 09:11 Pulse Rate 43 L 01/10/24 09:11 Pulse Rhythm Irregular 01/10/24 09:11 Respiratory Rate 16 01/10/24 09:11 Blood Pressure 146/70 H 01/10/24 09:11 Blood Pressure Mean 95 01/10/24 09:11 Blood Pressure Position Sitting 01/10/24 09:11 Pulse Oximetry 94 01/10/24 09:11 Oxygen Delivery Method Room Air 01/10/24 09:11 Vital Signs Temperature 96.5 F L 01/10/24 09:11 Pulse Rate 43 L 01/10/24 09:11 Respiratory Rate 16 01/10/24 09:11 Blood Pressure 146/70 H 01/10/24 09:11 Pulse Oximetry 94 01/10/24 09:11 Oxygen Delivery Method Room Air 01/10/24 09:11 Temperature 96.5 F L 01/10/24 09:11 Pulse Rate 73 01/10/24 10:15 Respiratory Rate 16 01/10/24 09:11 Blood Pressure 128/75 01/10/24 10:12 Pulse Oximetry 91 01/10/24 10:15 Oxygen Delivery Method Room Air 01/10/24 09:11 Discharge Plan Discharge Clinical Impression: Low back pain with left-sided sciatica Patient Disposition: Home, Self-Care Condition: Stable Instructions: Sciatica (ED) Additional Instructions: Take Tylenol and ibuprofen as needed for pain. Take oxycodone for more severe pain. Take gabapentin and prednisone scheduled as prescribed Follow-up with your primary care doctor in 5-7 days to discuss further evaluation, consideration for physical therapy Activity Level: Activity as Tolerated Discharge Diet: Regular Prescriptions: New oxycodone 5 mg capsule 5 mg PO Q6H PRN (Reason: pain) Qty: 7 0RF prednisone 10 mg tablet 10 mg PO DIRECTED Qty: 30 0RF Rx Instructions: Take 40 mg daily for 3 days, then 30 mg daily for 3 days, then 20 mg daily for 3 days, then 10 mg daily for 3 days, then your regular 5 mg daily gabapentin 100 mg capsule 100 mg PO TID Qty: 21 0RF No Action prednisone 5 mg tablet 5 mg PO DAILY metoprolol tartrate 25 mg tablet 25 mg PO BID multivitamin Tablet 1 tab PO QAM ipratropium-albuterol 0.5 mg-3 mg(2.5 mg base)/3 mL solution for nebulization 3 ml INHALATION QID PRN (Reason: dyspnea) albuterol sulfate [Ventolin HFA] 90 mcg/actuation HFA aerosol inhaler 2 puff INHALATION Q4H PRN (Reason: wheezing) aspirin [Adult Low Dose Aspirin] 81 mg tablet,delayed release (DR/EC) 81 mg PO DAILY rosuvastatin 20 mg tablet 20 mg PO HS Anoro Ellipta 62.5-25 mcg/actuation blister with device 1 inh INHALATION DAILY calcium carbonate-vitamin D3 600 mg-10 mcg (400 unit) tablet 1 tab PO BID acetaminophen 500 mg tablet 1,000 mg PO TID PRN Erleada 60 mg tablet 240 mg PO QDAY Qty: 120 2RF Follow Up/Referrals: Jacquelyn Fleming PA-C [Primary Care Provider] - Stand Alone [facility]: [facility] Info Inst[facility]
--- NOTE | 2024-01-10 09:46 | CT_ITS ---
Patient: JENNA BRUCE Facility:?[facility] Patient ID:?[id number] Site Patient ID:?[id number] Site :?1950 Study:?CT-Spine Lumbar WITHOUT-01/10/2024 10:10:47 AM Ordering Physician:MER Final Report: INDICATION: Back pain. Left-sided sciatica. History of prostate cancer. TECHNIQUE: CT of the lumbar spine without contrast. Coronal and sagittal reformats are included. COMPARISON: None. FINDINGS: Five lumbar type vertebral bodies, with the last fully formed disc space referred to as L5-S1. Normal lumbar lordotic curvature. No acute fractures. Large degenerative Schmorl`s node L4 inferior endplate. Lucency within the L2 inferior vertebral body/endplate also likely reflects a Schmorl`s node. No aggressive lytic or blastic osseous lesions to suggest osseous metastatic disease. Atheromatous and mildly ectatic abdominal aorta and branch vessels. Renal cortical atrophy. No extra-spinal soft tissue abnormalities. Findings at individual levels as follows: L1-2: Mild disc bulge. No spinal canal or neural foraminal stenosis. L2-3: Mild disc bulge. Low-grade bilateral facet arthrosis. No spinal canal or neural foraminal stenosis. L3-4: Mild disc bulge. Low-grade bilateral facet arthrosis. No spinal canal or neural foraminal stenosis. L4-5: Trace retrolisthesis. Mild disc bulge. No spinal canal or neural foraminal stenosis. L5-S1: Mild disc bulge with underlying osteophytic ridging. Bilateral low-grade facet arthrosis. Mild bilateral neural foraminal stenosis. No spinal canal stenosis. SI joints and Sacrum: Bilateral SI joint arthrosis. No sacral abnormalities. IMPRESSION: 1. No acute fractures. No lytic or blastic osseous abnormalities to suggest osseous metastatic disease. 2. Scattered lumbar spondylosis without CT visualized high-grade spinal canal/neural foraminal stenosis. Please note that all CT scans at this facility use dose modulation, iterative reconstruction, and/or weight-based dosing when appropriate to reduce radiation dose to as low as reasonably achievable. Dictated by Jean Pierre Dean MD @ 01/10/2024 10:43:56 AM Signed by:?Jean Pierre Dean MD @01/10/2024 10:43:56 AM (Electronic Signature)
[2024-01-10 09:52] VITALS: PULSE 73; O2SAT 90
--- OUTSIDE RECORDS SUMMARY | 2024-01-10 10:09 | XMS_ITS | Clinical Summary ---
Author Name Unknown Organization [facility] Address [address] [place] [address] Care Team Providers Care Benefit Authorizer Name Role Phone Unavailable Primary Care Provider Unavailabl e Source Comments Patient records contain information from all sites at [facility]. For routine questions regarding patient records, call [phone] during business hours, M-F 8:00 AM - 5:00 PM Central Time. Record requests for emergency care only can be directed to [phone] at any time.[facility] Allergies Active Allergy Reactions Criticality Noted Date Comments Calvert Cough 03/13/2023 Mold Cough 03/13/2023 Medications Medication Sig Dispensed Refills Start Date End Date Status albuterol 90 mcg/actuation inhaler Inhale 2 puffs. 01/23/[address] Active [address] tablet Take 81 mg by mouth. 05/09/2020 Acti ve fluticasone propionate (Flovent HFA) 110 mcg/actuation inhaler Flovent HFA 110 mcg/actuation aerosol inhaler TAKE 1 PUFF BY MOUTH TWICE A DAY 09/16/2021 Active metoprolol tartrate (LOPRESSOR) 25 mg tablet metoprolol tartrate 25 mg tablet TAKE 1 TABLET BY MOUTH TWICE A DAY 12/02/2021 Active predniSONE (DELTASONE) 20 mg tablet 10 mg. Active rosuvastatin (CRESTOR) 20 mg tablet rosuvastatin 20 mg tablet 12/02/2021 Active multivitamin tablet Take 1 tablet by mouth daily. 05/09/2020 Active codeine-guaiFENesin (ROBITUSSIN-AC) 10-100 mg/5 mL liquid TAKE 5-10 ML BY MOUTH AT BEDTIME IF NEEDED FOR COUGH. MAX DOSE 60 ML PER 24 HRS. Active fluticasone propion-salmeteroL 250-50 mcg/dose diskus inhaler Inhale 1 puff 2 (two) times a day. 12/15/2022 Active ipratropium-albuter oL (DUONEB) 0.5-2.5 mg/3 mL nebulizer solution INHALE 3 ML VIA A NEBULIZER 4 TIMES DAILY IF NEEDED FOR SHORTNESS OF BREATH 1ST CHOICE. Active ipratropium-albuter oL (DUONEB) 0.5-2.5 mg/3 mL nebulizer solution Inhale 3 mL 4 (four) times a day as needed for wheezing. 01/23/2023 Active oxyBUTYnin (DITROPAN) 5 mg tablet 03/11/2023 Active Active Problems Problem Noted Date Diagnosed Date Primary Malignant Neoplasm Of Prostate Cancer Staging:Clinical stage from 12/18/2021:Stage IIIB(cT4, cN0, cM0, PSA: 52.3, Grade Group: 4) - Unsigned Family History Medical History Relation Name Comments Prostate cancer Father Prostate cancer Maternal Grandfather Breast cancer Mother Liver cancer Sister Relation Name Status Comments Father Maternal Grandfather Mother Sister Social History Tobacco Use Types Packs/Day Years Used Date Smoking Tobacco: Former Cigarettes 2 1989 Smokeless Tobacco: Never Tobacco Cessation:Counseling Given: Not Answered Alcohol Use Standard Drinks/Week Comments Not Currently 0 (1 standard drink = 0.6 oz pure alcohol) Prior alcoholic, 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 No 03/15/2023 Within the last year, have y ou been humiliated or emotionally abused in other ways by your partner or ex-partner? No Within the last year, have y ou been kicked, hit, slapped, or otherwise physically hurt by your partner or ex-partner? No 03/15/2023 Within the last year, have y ou been raped or forced to have any kind of sexual activity by your partner or ex-partner? No 03/15/2023 Overall Financial Resource Strain (CARDIA) Answe r Date Recorded How hard is it for you to pa y for the very basics like food, housing, medical care, and heating? Not hard at all 03/15/2023 Exercise Vital Sign Answer Date Recorde d On average, how many days pe r week do you engage in moderate to strenuous exercise (like a brisk walk)? 0 days 03/15/2023 On average, how many minutes do you engage in exercise at this level? 0 min 03/15/2023 Hunger Vital Sign Answer Date Recorded Within the past 12 months, y ou worried that your food would run out before you got the money to buy more. Never true 03/15/20 Within the past 12 months, t he food you bought just didn't last and you didn't have money to get more. Never true 03/15/2023 PRAPARE - Transportation Answer Date Re corded In the past 12 months, has l ack of transportation kept you from medical appointments or from getting medications? No 02/22 In the past 12 months, has l ack of transportation kept you from meetings, work, or from getting things needed for daily living? No 03/15/2023 Nutrition Answer Date Recorded Nutrition: EVOO Fat Source Unknown 03/15 On average, how many serving s of fruits and vegetables do you eat per day (serving size is equal to 1 cup or approximately the size of a tennis ball)? 3-5 03/15/2023 Dental Answer Date Recorded Dental: Regular Dentist Yes 03/15/20 Employment Answer Date Recorded Employment status Retired 03/15/2023 Housing Stability Answer Date Recorded What is your living situation today? I have a [facility] place to live 03/15/2023 Sex and Gender Information Value Date Recorded Sex Assigned at Male 03/15/2023 3:48 PM CDT Gender Identity Male 03/15/2023 3:48 PM CDT Sexual Orientation Straight 03/15/2023 3: 48 PM CDT Last Filed Vital Signs Vital Sign Reading Time Taken Comments Blood Pressure 123/66 03/16/2023 2:59 PM CDT Pulse 71 03/16/2023 2:59 PM CDT Temperature 35.8 ??C (96.5 ??F) 03/16/2023 2:59 PM CD T Respiratory Rate - - Oxygen Saturation 99% 01/24/2022 7:33 AM CDT Inhaled Oxygen Concentration - - Weight 97.3 kg (214 lb 6.4 oz) 03/16/2023 2:59 P M CDT Height - - Body Mass Index - - Plan of Treatment Health Maintenance Due Date Last Done Comments CT Colonography 1950 Cologuard 1950 Hepatitis C Screening 1950 Zoster Vaccines (1 of 2) 08/29/2013 07/04/2013 Influenza Vaccine (#1) 2023 , 05/07/2021, 05/02/2019, Additional history exists Depression Screening (Annual PHQ-2) 08/24/2023 Fall Risk Screen (Annual) 08/24/2023 COVID-19 Vaccine ( season) 2023 08/10/2023, 06/27/2022, 07/16/2021, Additional history exists DTaP,Tdap,and Td Vaccines (2 - Td or Tdap) 12/20/2023 12/19/2013 Fasting Glucose for Diabetes Screening 06/01/2026 06/01/2023, 12/10/2022, 12/02/2021, Additional history exists Colonoscopy 02/10/2028 02/09/2023, 11/02/2014 Colorectal Cancer Surveillance 02/10/2028 Pneumococcal vaccine (65+ years) Completed 11/21/2016, 11/14/2015 Abdominal Aortic Aneurysm (AAA) Screen Completed 12/31/2021, 12/31/2021 HPV Vaccines Aged Out No longer eligi ble based on patient's age to complete this topic Medical Devices Implanted Type Area Legal Advisor Device Identifier Shelf Expiration Date Model / Serial / Lot Cardiac Valve Prosthesis Cardiac Valve Prosthesis Heart Procedures Procedure Name Priority Date/Time Associated Diagnosis Comments EXTI COMPREHENSIVE METABOLIC PANEL, S/P Routine 06/01/2023 3:[address] ABDOMEN PELVIS WITHOUT IV CONTRAST RAD - Routine (most inpatients and all outpatients) 12/31/2021 1:11 PM CDT from Last 3 Months or Most Recently Relevant to Health Maintenance
--- OUTSIDE RECORDS SUMMARY | 2024-01-10 10:09 | XMS_ITS | Data Portability ---
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 Plan of Treatment Reminders Order Date Submit Date Provider Last Modified By Organization Details Last Modified Time Details Appointments None recorded. Lab None recorded. Referral None recorded. Procedures None recorded. Surgeries None recorded. Imaging None recorded. Medication Orders Casodex 50 mg tablet 2021 022 [facility] [id number] [facility] [employer], [address], [place], [address], 17:57:10 ceftriaxone 1 gram solution for injection 2021 022 [email or web address] Not available 09:26:08 Patient TargetsNo targets recorded. Patient Instructions Encounter Date Encounter Id Patient Instructions Last Modified By Organization Details Last Modified Time 01/08/2022 [id number] 45 minute discussion Not available 01/08/2022 18:30:23 Reason for Referral None Reported. Results Created Date Observation Date Name Description Value Unit Range Abnormal Flag LastModifiedBy Organization Detail LastModifiedTime 12/24/19 22 12/18/2021 imagi ng/di agnos tic resul t No observ ation record ed. [email or web address] Not Available 12/23/2021 08:02:52 01/07/20 22 12/31/2021 NM, bone scan, whole body No observ ation record ed. Not Available 01/06/2022 14:33:22 01/07/20 22 12/31/2021 CT, abdom en + pelvi s, w/o contr ast No observ ation record ed. Not Available 01/06/2022 14:34:11 Result Notes None recorded. Procedures Surgical History Date Name Laterality Status Provider Name and Address Organization Details Recorded Time 12/19/19 22 Prostate Biopsy Procedure completed Stone He MD [address] [facility] [address], [place], [address], [facility] 12/18/2021 09:52:48 10/05/19 21 replacement of aortic valve completed Radha castrejon [facility] 12/18/2021 09:08:57 11/03/19 15 Colonoscopy completed Radha castrejon [facility] 12/18/2021 09:09:36 06/08/20 10 Cholecystectomy completed Radhasalena castrejon [facility] 12/18/2021 09:09:51 Imaging Results Imaging Date Name Status LastModified by Organiz ation Details LastModified Time 12/18/2021 imaging/diagn ostic result completed [email or web address] Information not available 12/23/2021 08:02:52 12/31/2021 NM, bone scan, whole body completed Information not available 01/06/2022 14:33:22 12/31/2021 CT, abdomen + pelvis, w/o contrast completed Information not available 01/06/2022 14:34:11 Procedure Notes None recorded. Medical Equipment None Reported. Allergies No known drug allergies Medications Name Sig Start Date Stop Date Status Note LastModified by Organization Details LastModified Time cyclobenzap rine 10 mg tablet TAKE 1 TABLET (10 MG) BY MOUTH AT BEDTIME IF NEEDED FOR MUSCLE SPASM FOR UP TO 7 DAYS. 12/18 completed Not Available Not Available Not Available amoxicillin 500 mg capsule TAKE 4 CAPSULES (2 GM) BY MOUTH 30 TO 60 MINUTES PRIOR TO DENTAL PROCEDURE . active Not Available Not Available No t Available bicalutamid e 50 mg tablet TAKE 1 TABLET BY MOUTH EVERY DAY active Not Available Not Available No t Available prednisone 10 mg tablet TAKE 4 TABS W FOOD FOR 3 DAYS, THEN 3 TABS FOR 3 DAYS, THEN 2 TABS FOR 3 DAYS, THEN 1 TAB FOR 3 DAYS active Not Available Not Available No t Available ipratropium 0.5 mg-albutero l 3 mg (2.5 mg base)/3 mL nebulizatio n soln INHALE 3 ML VIA A NEBULIZER 4 TIMES DAILY IF NEEDED FOR SHORTNESS OF BREATH 1ST CHOICE. active Not Available Not Available No t Available azithromyci n 250 mg tablet TAKE 2 TABLETS BY MOUTH TODAY, THEN TAKE 1 TABLET DAILY FOR 4 DAYS 12/18 completed Not Available Not Available Not Available prednisone 20 mg tablet TAKE 2 TABLETS (40 MG) BY MOUTH ONCE DAILY WITH A MEAL FOR 5 DAYS. active Not Available Not Available No t Available ciprofloxac in 500 mg tablet active Not Available Not Available Not Available ceftriaxone 1 gram solution for injection Take 1 g by injection route. 2021 active Not Available Not Available Not Avai lable lorazepam 0.5 mg tablet PLEASE SEE ATTACHED FOR DETAILED DIRECTION S active Not Available Not Available No t Available losartan 25 mg tablet TAKE 1 TABLET BY MOUTH EVERY DAY active Not Available Not Available No t Available codeine 10 mg-guaifene sin 100 mg/5 mL oral liquid TAKE 5-10 ML BY MOUTH AT BEDTIME IF NEEDED FOR COUGH. MAX DOSE 60 ML PER 24 HRS. active Not Available Not Available No t Available amoxicillin 875 mg-potassiu m clavulanate 125 mg tablet TAKE 1 TABLET BY MOUTH TWICE A DAY WITH MEALS FOR 10 DAYS active Not Available Not Available No t Available rosuvastati n 20 mg tablet TAKE 1 TABLET BY MOUTH EVERYDAY AT BEDTIME active Not Available Not Available No t Available metoprolol tartrate 25 mg tablet TAKE 1 TABLET BY MOUTH TWICE A DAY active Not Available Not Available No t Available Flovent HFA 110 mcg/actuati on aerosol inhaler TAKE 1 PUFF BY MOUTH TWICE A DAY active Not Available Not Available No t Available Vitals Date Recorded Body height Body mass index (BMI) Body weight Provider Name and Address Organization Details Last Updated DateTime 12/18/2021 180.34 cm 27.9 kg/m2 51419.47 g Radha Childress ID - [facility] 12/18/2021 09:26:32 Date Recorded Body height Body mass index (BMI) Body weight Provider Name and Address Organization Details Last Updated DateTime 01/08/2022 180.34 cm 27.9 kg/m2 83435.47 g Stone He MD [address] [facility] [address], [place], [address], [facility] 01/08/2022 17:05:32 Social History Question Answer Notes LastModified by Organizat ion Details LastModified Time Tobacco Smoking Status Former Smoker quit 1989 Radha TIA Rig[facility] 12/18/2021 09:10:26 When Did You Quit Smoking? 15+yearssin ariane kyle [email or web address] Information not available 12/18/2021 What Was The Date Of Your Most Recent Tobacco Screening? 01/08/2022 Information not available 01/08/2022 Sex: Male Functional Status None recorded. Mental Status None recorded. Family History Relationship Description Onset Age of this Age Resolved Age Notes Father Family history of pr ostate cancer Medical History Condition Response Other Y Cancer Y Past Encounters Encounter ID Performer Location Encounter Start Date Encounter Closed Date Diagnosis/Indication Diagnosis SNOMED-CT Code [id number] MD WNEDY Frances_Edincaryl [address] [place] [id number] 12/18/2021 09:01:42 12/20/2021 16:04:23 Prostate specific antigen above reference range [id number] MD WENDY Frances_Clarisse [address] [place] [id number] 01/08/2022 16:46:59 01/13/2022 08:58:44 Carcinoma of prostate [id number] Health Concerns Section Related Observation LastModified by Organization Detai ls LastModified Time None Recorded Concern Status LastModified by Organization Details LastModified Time None Recorded Advance Directives Directive None Recorded Payers Encounter Date Sequence Insurance Name Policy Number Policy Cifuentes Covered Member ID Cifuentes Member ID Guarantor Name 01/08/2022 1 [facility] (MEDICARE REPLACEMENT/A DVANTAGE - PPO) [id number] Faizan Simon [id number] Faizan Simon 12/18/2021 1 [facility] (MEDICARE REPLACEMENT/A DVANTAGE - PPO) [id number] Faizan Simon [id number] Faizan Simon Notes Date Note Type Note Provider Name and Address Organization Details Recorded Time 12/18/2021 text/html HPI Notes: 71 yo male noted to have an elevated PSA. + Family Hx of prostate cancer - father and uncles. He voids every 2-3 hours during the day and 1x/night. He denies hesitancy, slow stream, urgency, or dysuria. He denies UTIs or prostatitis. 12/18/21 - He presents for TRUS/Bx for elevate PSA and nodule at Left base. He reports no change in urination. PSA - 52.29 (12/02/21) - 3.96 (10/20/14) - 1.89 (10/20/12) - 1.76 (09/24/11) Stone He MD [address] [place] [address],[address], [address], [facility] - [facility] 12/18/2021 09:54:07 01/08/2022 text/html HPI Notes: 71 yo male diagnosed with Prostate cancer - cT2c - Phil 4+4 = 8 - history of elevated PSA. + Family Hx of prostate cancer - father and uncles. He voids every 2-3 hours during the day and 1x/night. He denies hesitancy, slow stream, urgency, or dysuria. He denies UTIs or prostatitis. TRUS bx (12/18/21) - 53.7 gm - + Prostate cancer - cT2c - Phil 4+4 = 8 - Phil 4+4 = 8 - Left apex/mid/base, Right base - (100%) - no perineural invasion - [place] 3+4 = 7 - Right apex (10%) - no perineural invasion - Phil 3+3 = 6 - Right mid (60%) - no perineural invasion 01/08/22 - He presents for prostate cancer counseling. He voids every 2-3 hours during the day and 1-2x/night. He denies hesitancy, slow stream, urgency, or dysuria. PSA - 52.29 (12/02/21) - 3.96 (10/20/14) - 1.89 (2/27/13) - 1.76 (09/24/11) CT scan (12/31/21) - no evidence of metastatic disease - no enlarged lymph nodes Bone scan (12/31/21) - no evidence for skeletal metastatic disease Stone He MD [address] [facility] [address], [place], [address], [facility] 01/08/2022 18:34:33
--- OUTSIDE RECORDS SUMMARY | 2024-01-10 10:09 | XMS_ITS ---
Author Name Unknown Organization [facility] Address [address] [place] [address] Care Team Providers Care Email Marketer Name Role Phone Unavailable Primary Care Provider Unavailabl e Active Problems Problem Noted Date Diagnosed Date Primary Malignant Neoplasm Of Prostate 2 Cancer Staging:Clinical stage from 12/18/2021:Stage IIIB(cT4, cN0, cM0, PSA: 52.3, Grade Group: 4) - Unsigned Current Oncology Plans No current plan information found. Past Plans No past plan information found. Radiation Treatments * Plan Last Treated On Elapsed Days Fractions Treated Prescribed Fraction Dose Prescribed Total Dose [id number] 03/18/2022 36 26 of 26 270 cGy 7,020 cGy Reference Point Last Treated On Elapsed Days Session Dose Total Dose [id number] 03/18/2022 36 270 cGy 7,020 cGy
--- OUTSIDE RECORDS SUMMARY | 2024-01-10 10:09 | XMS_ITS | Clinical Summary ---
Author Name Unknown Organization [facility] Address [place], [place] [address] Care Team Providers Care [place]atra Opener Name Role Phone [place] He MD Unavailable [phone] Jacquelyn Fleming Primary Care Provider Edgar Meier MD Unavailable [phone] Luis Perdomo MD Unavailable Allergies Active Allergy Reactions Criticality Noted Date Comments Dunn Cough 03/13/2023 Mold Cough 03/13/2023 Medications Medication Sig Dispensed Refills Start Date End Date Status NebulizerIndications :Pneumonitis, hypersensitivity (HC),Bronchitis,Mild intermittent asthma, uncomplicated Nebulizer disposable neb kit x 4, reuseable neb kit x 1, mask x 1, filters x 1. Use qid Medication: duoneb Length of need: 99 months 1 Device 02/20/20 19 Active multivitamin (MVI) tablet Take 1 tablet by mouth once daily. 0 05/09/20 20 Active aspirin (ECOTRIN) 81 mg enteric coated tablet Take 1 tablet by mouth once daily with a meal. 0 05/09/20 20 Active acetaminophen (TYLENOL EXTRA STRGTH) 500 mg tabletIndications:S/ P AVR (aortic valve replacement) Take 2 tablets by mouth 3 times daily. Max acetaminophen dose: 4000mg in 24 hrs. 0 10/09/19 21 Active medication order composer Earlita-oral chemo-4 tabs/day 120 Tablet 03/01/20 23 Active medication order composer Lupron injections q3 months. 1 Dose 03/01/20 23 Active nebulizer accessories kitIndications:Mild intermittent asthma without complication For home use. Length of need: 99 1 Kit 05/14/20 23 Active nystatin powder (MYCOSTATIN) powderIndications:Ra sh Apply 1 Strip topically to affected area(s) three times daily. 60 g 06/10/20 23 Active metoprolol tartrate (LOPRESSOR) 25 mg tabletIndications:S/ P AVR (aortic valve replacement) Take 1 Tablet (25 mg) by mouth two times daily. 180 Tablet 3 07/12/20 23 Active albuterol HFA (PRO-AIR; VENTOLIN; PROVENTIL) 90 mcg/actuation inhalerIndications:P neumonitis, hypersensitivity (HC) Inhale 2 Puffs by mouth every 4 hours if needed for Shortness Of Breath or Wheezing. 18 g 11 10/08/19 24 Active Mucus Clearing Device deviIndications:COPD with chronic bronchitis (HC) As directed. High frequency 10/08/19 24 Active rosuvastatin (CRESTOR) 20 mg tabletIndications:Co ronary artery disease, unspecified vessel or lesion type, unspecified whether angina present, unspecified whether [place] or transplanted heart TAKE 1 TABLET BY MOUTH AT BEDTIME 90 Tablet 2 11/01/19 24 Active predniSONE (DELTASONE) 5 mg tabletIndications:Pr ostate cancer (HC) Take 1 Tablet (5 mg) by mouth once daily with a meal. 90 Tablet 1 11/13/19 24 Active Anoro Ellipta 62.5-25 mcg/actuation inhalerIndications:C hronic obstructive pulmonary disease, unspecified COPD type (HC) INHALE 1 PUFF BY MOUTH ONCE DAILY. DISCARD INHALER 6 WEEKS AFTER OPENING OR WHEN THE COUNTER READS '0' (AFTER ALL BLISTERS HAVE BEEN USED), WHICHEVER COMES FIRST. 180 Each 1 11/16/19 24 Active albuterol-ipratropiu m (DUONEB) (2.5-0.5 mg) in 3 mL NEBULIZATION solutionIndications: Pneumonitis, hypersensitivity (HC) INHALE 3 ML VIA A NEBULIZER 4 TIMES DAILY IF NEEDED FOR SHORTNESS OF BREATH 1ST CHOICE. 270 mL 1 12/04/19 24 Active predniSONE (DELTASONE) 10 mg tabletIndications:CO PD with chronic bronchitis (HC),Pneumonitis, hypersensitivity (HC),COPD exacerbation (HC) 20 mg (2 pills) daily x 10 days, 10 mg (1 pill) daily x 10 days. 30 Tablet 12/30/19 24 Active predniSONE (DELTASONE) 10 mg tabletIndications:CO PD with chronic bronchitis (HC),Pneumonitis, hypersensitivity (HC),COPD exacerbation (HC) Take 4 tabs daily x 7 days, then 3 tabs daily x 7 days, then 2 tabs daily x 7 days, then 1 tab daily x 7 days 70 Tablet 12/04/19 24 024 Discontinued Active Problems Problem Noted Date Diagnosed Date Primary malignant neoplasm of prostate 3 Thoracic aortic ectasia 09/27/2021 S/P AVR (aortic valve replacement) 10/05/2020 Overview: Aortic valve replacement with a 27 mm [place] Inspiris Resilia valve - Dr. Cavanaugh 08/04/21 Pneumonitis, hypersensitivity 11/22/2013 Mild intermittent asthma 02/06/2013 Hypertension 10/15/2011 Benign neoplasm of colon 12/22/2008 Overview: Colonoscopy 11/2008 polyp repeat in 5 years Colonoscopy 10/2014 polyps repeat in 5 years Colonoscopy 02/2023 normal, no follow up colonoscopy Nonrheumatic aortic valve stenosis Resolved Problems Problem Noted Date Diagnosed Date Resolved Date Depression, recurrent 01/23/20232023 Anticoagulation monitoring, INR range 2-3 10/15/2020 01/02/2021 Encounters Date Type Department Care Team Description 12/29/2023 Refill [facility] [address] [place] [address] Jacquelyn Fleming PA Refill Request (Prednisone) 12/14/2023 9:30 AM CDT Office Visit [facility] [address] [place] [address] Jacquelyn Fleming PA Medicare ANNUAL (subsequent) Visit (73 years old) 12/14/2023 Travel 12/04/2023 2:20 PM CDT Office Visit [facility] [address] [place] [address] Jacquelyn Fleming PA Cough (Productive cough, having trouble sleeping. Wheezing. X 2 weeks); Sinus Problem (congestion) 12/04/2023 Travel 12/04/2023 Refill [facility] [address] [place] [address] Jacquelyn Fleming PA Refill Request (Albuterol-ipratropium) 11/16/2023 Refill [facility] [address] [address] [place] [address] Luis Perdomo MD Refill Request (Anoro Ellipta) 11/13/2023 2:00 PM CDT Office Visit [facility] [address] [place] [address] Jacquelyn Fleming PA Hospital F/U (Starting to feel wheezy again and SOB with stairs, head throbs. ) 11/13/2023 Travel 11/04/2023 Orders Only [facility] Scanner 1 scan: (1-Ord) [facility], CT ANGIO CHEST PE, 11/04/2023 11/04/2023 Orders Only [facility] Scanner 1 scan: (1-Ord) [facility], XR CHEST 1V PORTABLE, 11/04/2023 11/04/2023 Telephone [facility] [address] [phone] Luis Perdomo MD 11/03/2023 8:32 AM CDT - 11/03/2023 11:59 PM CDT Hospital Encounter [facility] [address] [place] [address] Luis Perdomo MD Pneumonitis, hypersensitivity (HC) 11/03/2023 Travel 11/01/2023 Refill [facility] [address] [place] [address] Jacquelyn Fleming PA Refill Request (Prednisone, Rosuvastatin) 10/14/2023 10:30 AM BASKETBALL ASSEMBLER Ancillary Procedure [facility] [address] [place] [address] 10/13/2023 Travel 10/12/2023 Refill [facility] [address] [place] [address] Jacquelyn Fleming PA Refill Request (Albuterol-ipratropium) from Last 3 Months Immunizations Name Administration Dates Next Due Amb Influenza, Inact (High-d ose) (Flu Clinic Only) 07/11/2016 COVID-19 vaccine (Moderna 50mcg/0.5mL) 12YO+ BIVALENT PF, MDV 06/27/2022 COVID-19 vaccine (Pfizer-Bio NTech 30mcg/0.3mL) PF, MDV 11/20/2020,10/30/2020 Influenza, High-dose Inactivated 019,05/01/2017,07/11/2016,2014 Influenza, High-dose Quadriv alent Inactivated 05/07/2021 Influenza, IIV3 (Age 6-35 mos) 11/09/2015 Influenza, IIV3 (Age >=3 years) 07/04/20 13,06/20/2010,07/21/2007,2003 Influenza, Inactivated AIIV4 (Age 65+ Years) Preserv Free 06/27/2022 Influenza, Inactivated IIV3 (Age 65+ Years) Preserv Free 05/18/2018 Pneumococcal Poly,23-Valent (Pneumovax) 11/21/2016 Pneumococcal conj 13-Valent (Prevnar 13) 11/14/2015 Td (Age >=7 Years) 09/06/2003 Tdap 12/19/2013 Zoster (Zostavax-ZVL, live) 07/04/2013 Family History Medical History Relation Name Comments Alcoholism Brother 1 Brain Aneurysm Brother 2 Diabetes Brother 2 Cancer-prostate Father Diabetes Father Heart Disease Father heart attack Diabetes Sister 1 Anuradha Heart and Kidne y complications Other Sister 2 cirrhosis of li alexandro Relation Name Status Comments Brother 1 Brother 2 Father Mother Alive Sister 1 Anuradha Sister 2 Social History Tobacco Use Types Packs/Day Years Used Date Smoking Tobacco: Former Cigarettes 2 23 0 08/24/1966 - 08/24/1989 Smokeless Tobacco: Never Tobacco Cessation:Counseling Given: Yes Alcohol Use Standard Drinks/Week Comments No 0 (1 standard drink = 0.6 oz pur e alcohol) PHQ-2 Answer Date Recorded PHQ-2 TOTAL SCORE 0 12/14/2023 Social Connections Answer Date Recorded Frequency of Communication with Friends and Fami ly 0 09/07/2023 Financial Resource Strain Answer Date R ecorded Difficulty of Paying Living Expenses 3 09/07/2023 Difficulty of Paying Living Expenses Not on file 09/07/2023 Food Insecurity Answer Date Recorded Worried About Running Out of Food in the Last Ye ar 1 09/07/2023 Transportation Needs Answer Date Record ed Lack of Transportation (Medical) 1 09/07/2023 Housing Stability Answer Date Recorded Unable to Pay for Housing in the Last Year 1 09/07/2023 Sex and Gender Information Value Date Recorded Sex Assigned at Not on file Gender Identity Not on file Sexual Orientation Not on file Obstetrics History Last Filed Vital Signs Vital Sign Reading Time Taken Comments Blood Pressure 110/75 12/14/2023 9:31 AM CDT Pulse 81 12/14/2023 9:31 AM CDT Temperature 36.7 ??C (98.1 ??F) 12/04/2023 2:11 PM CD T Respiratory Rate 16 10/08/2023 8:33 AM BASKETBALL ASSEMBLER Oxygen Saturation 96% 12/14/2023 9:31 AM CDT Inhaled Oxygen Concentration - - Weight 96.2 kg (212 lb) 12/14/2023 9:31 AM CDT Height 175.3 cm (5' 9) 12/14/2023 9:31 AM CDT Body Mass Index 31.31 12/14/2023 9:31 AM CDT Plan of Treatment Upcoming Encounters Date Type Department Care Team (Late st Contact Info) Description 04/07/2024 11:00 AM CDT Office Visit [facility] [address] [place] [address] Lusi Perdomo MD [address] [address] Health Maintenance Due Date Last Done Comments Zoster (shingles) series for age 50+ (1 of 2) 08/29/2013 07/04/2013 COVID-19 vaccine series ( season) 2023 08/10/2023, 06/27/2022, 07/16/2021, Additional history exists Tetanus booster 12/20/2023 12/19/2013, 09/06/2003 Influenza for age 65+ 04/24/2024 06/27/2022 , 05/07/2021, 05/02/2019, Additional history exists BMI (ht and wt on same day) for age 18+ 12/13/2024 12/14/2023, 10/08/2023, 01/23/2023, Additional history exists Depression screening for age 12+ 12/13/2024 12/14/2023, 12/11/2022, 12/10/2022, Additional history exists Medicare Wellness for age 65+ 12/14/2024, 12/10/2022, 12/02/2021 Lipids for age 45-75 12/13/2028 12/14/2023, 12/10/2022, 12/02/2021, Additional history exists Colonoscopy through age 75 02/09/203302/09, 02/09/2023, 11/02/2014, Additional history exists Tdap Completed 12/19/2013 Pneumococcal series for age 65+ Completed 7, 11/14/2015 Hepatitis C screening for ag e 18-79 Completed 12/02/2021 AAA screening age 65-74 Completed 12/31/2021 Medical Devices Implanted Type Area Boarding Mother Device Identifier Shelf Expiration Date Model / Serial / Lot Valve Aortic 27mm Inspirus Resilia Tissue - [id number] Implanted:Qty: 1 on 10/05/2020 by Darshan Cavanaugh MD at [facility] N/A: Aortic Valve [id number] Arielle 05/03/2024 [id number] / [id number] / Description:No rinse needed per commercial intern Procedures Procedure Name Priority Date/Time Associated Diagnosis Comments LIPID PANEL W REFLEX MEASURED LDL Routine 12/14/2023 10:26 AM CDT Coronary artery disease, unspecified vessel or lesion type, unspecified whether angina present, unspecified whether [place] or transplanted heart BASIC METABOLIC PANEL Routine 12/14/2023 10:26 AM CDT Hypertension, unspecified type SCAN-CT INTERPRETATION 11/04/2023 12:00 AM CDT SCAN-RADIOLOGY REPORT 11/04/2023 12:00 AM CDT COMPLETE PULMONARY FUNCTION TEST WITH BRONCHODILATOR Routine 11/03/2023 8:45 AM CDT Pneumonitis, hypersensitivity (HC) CT CHEST HIGH RESOLUTION WO Routine 10/14/2023 10:40 AM BASKETBALL ASSEMBLER Pneumonitis, hypersensitivity (HC) COLONOSCOPY SCREENING Routine 02/09/2023 12:[address] ABDOMEN PELVIS WO Routine 12/31/2021 1:11 PM CDT Prostate cancer (HC) ANTI HCV Routine 12/02/2021 8:17 AM CDT Need for hepatitis C screening test from Last 3 Months or Most Recently Relevant to Health Maintenance Results * LIPID PANEL W REFLEX MEASURED LDL (12/14/2023 10:26 AM CDT) CHOLESTEROL,TOTAL 158 100 - 199 mg/dL 12/14/2023 7:17 PM CDT [facility] Comment: Cholesterol, Total Reference Ranges Desirable <200 mg/dL Borderline 200-239 mg/dL High >=240 mg/dL TRIGLYCERIDES 101 <150 mg/dL 12/14/2023 7:17 PM CDT [facility] HDL CHOLESTEROL 57 >40 mg/dL 7:17 PM CDT [facility] NON-HDL CHOLESTEROL 101 <145 mg/dl 12/14/2023 7:17 PM CDT [facility] CHOL/HDL RATIO 2.77 <4.50 12/14/2023 7:17 PM CDT [facility] LDL CHOLESTEROL 81 <=130 mg/dL 12/14/2023 7:17 PM CDT [facility] VLDL CHOLESTEROL 20 <=30 mg/dL 12/14/2023 7:17 PM CDT [facility] PROVIDER ORDERED STATUS RANDOM 12/14/2023 7:17 PM CDT [facility] Blood BLOOD SPECIMEN / Unknown Venipuncture / Unknown 12/14/2023 10:26 AM CDT 12/14/2023 10:26 AM CDT Jacquelyn RICE CHEMISTRY [facility] [address] [place] [address], * (ABNORMAL) BASIC METABOLIC PANEL (12/14/2023 10:26 AM CDT) Pathologist [facility] SODIUM 136 136 - 145 mmol/L 12/14/2023 7:17 PM CDT [facility] POTASSIUM 4.5 3.5 - 5.1 mmol/L 12/14/2023 7:17 PM T [facility] CHLORIDE 99 98 - 107 mmol/L 12/14/2023 7:17 PM T [facility] CO2,TOTAL 28 22 - 29 mmol/L 12/14/2023 7:17 PM T [facility] ANION GAP 9 5 - 18 12/14/2023 7:17 PM T [facility] GLUCOSE 117(H) 70 - 99 mg/dL 12/14/2023 7:17 PM T [facility] CALCIUM 9.5 8.8 - 10.2 mg/dL 12/14/2023 7:17 PM T [facility] BUN 19 8 - 23 mg/dL 12/14/2023 7:17 PM T [facility] CREATININE 1.00 0.70 - 1.20 mg/dL 12/14/2023 7:17 PM [facility] BUN/CREAT RATIO 19 10 - 20 7:17 PM T [facility] eGFR 79(L) >90 mL/min/1.7 3m2 12/14/2023 7:17 PM T [facility] Comment:As of 2021, eG FR is calculated by the CKD-EPI creatinine equation without race adjustment. ??eGFR can be influenced by muscle mass, exercise, and diet. ??The reported eGFR is an estimation only and is only applicable if the renal function is stable. Blood BLOOD SPECIMEN / Unknown Venipuncture / Unknown 12/14/2023 10:26 AM CDT 12/14/2023 10:26 AM CDT Jacquelyn RICE CHEMISTRY Performing Organization Address [facility] de Phone Number [facility] [address] [place] [address], [place] * SCAN-RADIOLOGY REPORT (11/04/2023 12:00 AM CDT) Anatomical Region Laterality Modality Other Scanner OTHER * SCAN-CT INTERPRETATION (11/04/2023 12:00 AM CDT) Anatomical Region Laterality Modality Other Scanner OTHER * COMPLETE PULMONARY FUNCTION TEST WITH BRONCHODILATOR (11/03/2023 8:45 AM CDT) Narrative [facility] - 11/03/2023 8:45 AM CDT Zion Lieberman MD ? 11/04/2023 ??9:56 AM Pulmonary Function Tests - Results and Interpretation DATE OF SERVICE: 11/03/2023 FINDINGS: FVC is reduced; FEV1 and FEV1 to FVC ratio are within normal limits. ??There is no significant bronchodilator response. ??Lung volumes are reduced. ??Diffusing capacity uncorrected for hemoglobin is reduced. INTERPRETATION: Mild restriction with mildly reduced diffusing capacity uncorrected for hemoglobin. ??No significant bronchodilator response. Compared to PFTs on 12/23/2013, FEV1 and FVC have decreased. Zion Lieberman MD Luis Perdomo MD PFT ORD Performing Organization Address [facility] de Phone Number [facility] [place], [place] * CT CHEST HIGH RESOLUTION WO (10/14/2023 10:40 AM BASKETBALL ASSEMBLER) Anatomical Region Laterality Modality CHEST, THORAX, HEART Computed To mography Narrative 10/16/2023 8:40 AM BASKETBALL ASSEMBLER Indication: Pneumonitis,HYPERSENSITIVITY, INTERSTITIAL LUNG DISEASE. Technique: Routine high-resolution CT chest without contrast. Comparison: 06/22/2020. Findings: Multifocal areas of bronchiectasis with thickening of the interlobular and intra lobular septa noted bilaterally. There is no pneumothorax. No pleural effusion. No pulmonary edema. No suspicious nodule or mass. Tiny calcified granulomas in the anterior right lung. Multifocal areas of air trapping noted bilaterally. Postop changes of aortic valve replacement and cholecystectomy. Extensive vascular calcifications. Cardiomegaly. No enlarged lymph nodes. Impression: 1. Bilateral pulmonary fibrotic changes which have progressed in the interim. Underlying COPD with areas of air trapping. 2. Old granulomatous changes. Please note that all CT scans at this facility use dose modulation, iterative reconstruction, and/or weight-based dosing when appropriate to reduce radiation dose to as low as reasonably achievable. Dictated by Nikos Bright MD @ 10/14/2023 3:53:34 PM Signed by: Nikos Bright MD @10/14/2023 3:53:34 PM (Electronic Signature) Luis Perdomo MD CT * COLONOSCOPY SCREENING [[id number]] (02/09/2023 12:00 AM CDT) Jacquelyn RICE GI PROCEDURE OR D * CT ABDOMEN PELVIS WO (12/31/2021 1:11 PM CDT) Anatomical Region Laterality Modality Abdomen, Pelvis, AORTA, LIVER, SPLEEN Computed Tomography 12/31/2021 2:49 PM CDT Narrative 12/31/2021 2:49 PM CDT For Patients: ??As a result of the 21st Century Cures Act, medical imaging exams and procedure reports are released immediately into your electronic medical record. ??You may view this report before your referring provider. ??If you have questions, please contact your health care provider. Indication: Prostate cancer Technique: Noncontrast CT abdomen and pelvis Please note that all CT scans at this facility use dose modulation, iterative reconstruction, and/or weight-based dosing when appropriate to reduce radiation dose to as low as reasonably achievable. Comparison: CT 05/09/2020. Ultrasound 10/07/2020. Findings: Chronic fibrotic changes in both lung bases including coarsening of the interstitial markings and bronchiectasis. Cardiomegaly. TAVR. Few scattered splenic and hepatic calcified granulomas. Gallbladder normal. Normal pancreas. Incidental duodenal diverticulum measuring 7 millimeters. Adrenal glands normal. Simple cysts upper pole right kidney measuring 7 millimeters. No hydronephrosis. No renal stone. Ureters are normal. Prostate enlargement with mild mass effect upon the bladder inferiorly. Postop changes to the lower abdominal wall from inguinal hernia repair. No adenopathy within the abdomen or pelvis. Sigmoid diverticulosis. No diverticulitis. No bowel obstruction or free air. No free fluid or abscess. Chronic ill-defined stranding with subcentimeter lymph nodes in the central mesenteric fat representing incidental nonspecific mesenteric panniculitis. Extensive vascular calcifications. No aneurysm. No fracture. Stable Schmorl`s node inferior endplate L4. No intrinsic osseous lesion. Impression: No evidence of metastatic disease. Please note that all CT scans at this facility use dose modulation, iterative reconstruction, and/or weight-based dosing when appropriate to reduce radiation dose to as low as reasonably achievable. Dictated by Nikos Bright MD @ Dec 31 2021 ??2:49PM (Electronically Signed) ?? Procedure Note Nikos Bright MD - 12/31/2021 For Patients: As a result of the Century Cures Act, medical imagingexams and procedure reports are released immediately into your electronicmedical record. You may view this report before your referring provider.If you have questions, please contact your health care provider. Indication: Prostate cancer Technique: Noncontrast CT abdomen and pelvis Please note that all CT scans at this facility use dose modulation,iterative reconstruction, and/or weight-based dosing when appropriate toreduce radiation dose to as low as reasonably achievable. Comparison: CT 05/09/2020. Ultrasound 10/07/2020. Findings: Chronic fibrotic changes in both lung bases including coarsening of theinterstitial markings and bronchiectasis. Cardiomegaly. TAVR. Fewscattered splenic and hepatic calcified granulomas. Gallbladder normal.Normal pancreas. Incidental duodenal diverticulum measuring 7 millimeters.Adrenal glands normal. Simple cysts upper pole right kidney measuring 7millimeters. No hydronephrosis. No renal stone. Ureters are normal.Prostate enlargement with mild mass effect upon the bladder inferiorly.Postop changes to the lower abdominal wall from inguinal hernia repair. Noadenopathy within the abdomen or pelvis. Sigmoid diverticulosis. Nodiverticulitis. No bowel obstruction or free air. No free fluid orabscess. Chronic ill-defined stranding with subcentimeter lymph nodes inthe central mesenteric fat representing incidental nonspecific mesentericpanniculitis. Extensive vascular calcifications. No aneurysm. No fracture.Stable Schmorl`s node inferior endplate L4. No intrinsic osseous lesion. Impression: No evidence of metastatic disease. Please note that all CT scans at this facility use dose modulation,iterative reconstruction, and/or weight-based dosing when appropriate toreduce radiation dose to as low as reasonably achievable. Dictated by Nikos Bright MD @ Dec 31 2021 2:49PM (Electronically Signed) [place] MD CT * ANTI HCV (12/02/2021 8:17 AM CDT) HEPATITIS C ANTIBODY Non-React guero Non-React guero 12/02/2021 5:53 PM CDT [facility] Comment:Antibodies to HCV no t detected; does not exclude the possibility of exposure to HCV. Blood BLOOD SPECIMEN / Unknown Venipuncture / Unknown 12/02/2021 8:17 AM CDT 12/02/2021 8:18 AM CDT [facility] [address] [place] [address], from Last 3 Months or Most Recently Relevant to Health Maintenance Advance Directives * Full Code (Latest Code Status on File) Date Activated Date Inactivated Comments 10/05/2020 6:34 AM 10/10/2020 2:00 PM preop Question Answer Comments Code Status Discussion: Other (specify in commen ts): Care Teams Sumatra Opener Relationship Specialty Start Date End Date Jacquelyn Fleming PA [address] [place] [address] PCP - General Physician Cream Beater 07/25/22 [place] He MD [address] [place] [id number] Surgery - Urology 07/25/22 Edgar Meier MD [address] [place] [address] Internal Medicine 07/25/22 [place] [address] [place] [address] Pulmonology Pulmonary Medicine 10/08/23
--- OUTSIDE RECORDS SUMMARY | 2024-01-10 10:09 | XMS_ITS ---
Author Name Unknown Organization [facility] Address [address] [place] [address] Care Team Providers Care Mixed Animal Veterinarian Name Role Phone Unavailable Unavailable Unavailable Surgery Details Not on file Complications Check Surgery Details section. Procedure Estimated Blood Loss Check Surgery Details section. Procedure Findings Check Surgery Details section. Procedure Specimens Taken Check Surgery Details section.
--- OUTSIDE RECORDS SUMMARY | 2024-01-10 10:09 | XMS_ITS | Referral Summary ---
Author Name Unknown Organization [facility] Address [address] [place] [address] Care Team Providers Care Spinning Frame Changer Name Role Phone Unavailable Primary Care Provider Unavailabl e Source Comments Patient records contain information from all sites at [facility]. For routine questions regarding patient records, call [phone] during business hours, M-F 8:00 AM - 5:00 PM Central Time. Record requests for emergency care only can be directed to [phone] at any time.[facility] Allergies Active Allergy Reactions Criticality Noted Date Comments Ida Cough 03/13/2023 Mold Cough 03/13/2023 Medications Medication [...] PSA: 52.3, Grade Group: 4) - Unsigned Social History Tobacco Use Types Packs/Day Years Used Date Smoking Tobacco: Former Cigarettes 2 7 - 1989 Smokeless Tobacco: Never Tobacco Cessation:Counseling Given: [...] your living situation today? I have a [facility] place to live 03/15/2023 Sex and [...] Mass Index - - Plan of Treatment Not on file Medical Devices Implanted Type Area Ladies' Hat Trimmer Device Identifier Shelf Expiration Date Model / [...]
[2024-01-10 10:10] VITALS: PULSE 57; O2SAT 93
[2024-01-10 10:12] VITALS: BP 128/75; PULSE 60; O2SAT 91
[2024-01-10 10:15] VITALS: PULSE 73; O2SAT 91
[2024-01-10] MEDS: KETOROLAC 30 MG/ML inj IM (10:50)
== END 2024-01-10 11:05 | disposition home or self-care (01) ==
PROVIDERS: Emergency Provider Family Medicine; PCP Physician Assistant Medical
DX: M54.42 Lumbago with sciatica, left side (principal)
CPT/HCPCS: 72131; 93005; 96372; 99284; J1885

== ENCOUNTER 2024-03-02 08:45 | Emergency (ER) | payer MEDICARE, SELFPAY ==
[2024-03-02 08:49] VITALS: BP 134/70; PULSE 49; RESP 18; TEMP 36; O2SAT 92; BMI 29.4
--- NOTE | 2024-03-02 09:23 | ED_ITS ---
HPI - General Adult General Chief complaint: Back Injury/Pain Stated complaint: Low back pain Time Seen by Provider: 03/02/24 09:10 History of Present Illness HPI narrative: Patient is a 89 male strained his back recently and did it again while throwing some feet over a fence. He was lifting a full bucket of feet and throughout over his back and has strain of his back. It has been more painful now. He has been doing some physical therapy. In December of this year he had a CT scan of his back that showed no extension of prostate cancer. He is interested in some pain control now and a couple days off and continue icing. He would like to hold off on his PT for couple days I think that is reasonable. He has no radicular symptoms, no weakness or numbness in his legs. No bowel or bladder changes. Related Data Home Medications ?Medication ?Instructions ?Recorded ?Confirmed metoprolol tartrate 25 mg tablet 25 mg PO BID 04/07/22 01/10/24 multivitamin 1 tab PO QAM 04/07/22 01/20/24 prednisone 5 mg tablet 5 mg PO DAILY 02/03/23 01/20/24 albuterol sulfate 90 mcg/actuation 2 puff inhalation Q4H PRN wheezing 11/04/23 01/20/24 aerosol inhaler (Ventolin HFA) aspirin 81 mg tablet,delayed 81 mg PO DAILY 11/04/23 01/20/24 release (Adult Low Dose Aspirin) calcium carbonate 600 mg-vitamin 1 tab PO BID 11/04/23 01/20/24 D3 10 mcg (400 unit) tablet ipratropium 0.5 mg-albuterol 3 mg 3 ml inhalation QID PRN dyspnea 11/04/23 01/20/24 (2.5 mg base)/3 mL nebulization soln rosuvastatin 20 mg tablet 20 mg PO HS 11/04/23 01/20/24 umeclidinium 62.5 mcg-vilanterol 1 inh inhalation DAILY 11/04/23 01/20/24 25 mcg/actuation powdr for inhalation (Anoro Ellipta) acetaminophen 500 mg tablet 1,000 mg PO TID PRN 11/09/23 01/20/24 Previous Rx's ?Medication ?Instructions ?Recorded apalutamide 60 mg tablet (Erleada) 240 mg (4 x 60 mg) PO QDAY #120 07/29/23 tabs fluticasone propionate 50 2 spray intranasal DAILY #16 grams 01/10/24 mcg/actuation nasal spray,suspension (Flonase Allergy Relief) gabapentin 100 mg capsule 100 mg PO TID #21 caps 01/10/24 oxycodone 5 mg capsule 5 mg PO Q6H PRN pain #7 caps 01/10/24 prednisone 10 mg tablet 10 mg PO DIRECTED #30 tabs 01/10/24 hydrocodone 5 mg-acetaminophen 325 1 tab PO Q8H PRN pain #14 tabs 03/02/24 mg tablet prednisone 20 mg tablet 20 mg PO BID #10 tabs 03/02/24 Allergies Allergy/AdvReac Type Severity Reaction Status Date / Time oxybutynin AdvReac Mild Verified 01/20/24 14:05 Review of Systems Status of ROS: Reports: 6 or more systems reviewed and unremarkable except as noted in History and below [facility] Medical History English's lung ?J67.0 - English's lung (ICD-10) Pulmonary infection ?J18.9 - Pneumonia, unspecified organism (ICD-10) Primary malignant neoplasm of prostate ?C61 - Malignant neoplasm of prostate (ICD-10) Bicuspid aortic valve ?Q23.1 - Congenital insufficiency of aortic valve (ICD-10) Chronic obstructive pulmonary disease (COPD) ?J44.9 - Chronic obstructive pulmonary disease, unspecified (ICD-10) Asthma ?J45.909 - Unspecified asthma, uncomplicated (ICD-10) Surgical wound dehiscence ?T81.31XA - Disruption of external operation (surgical) wound, not elsewhere classified, initial encounter (ICD-10) Thoracic aortic ectasia ?I77.810 - Thoracic aortic ectasia (ICD-10) Colon polyp ?K63.5 - Polyp of colon (ICD-10) Essential hypertension ?I10 - Essential (primary) hypertension (ICD-10) Pulmonary fibrosis ?J84.10 - Pulmonary fibrosis, unspecified (ICD-10) 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 - English's lung (ICD-10) Adenocarcinoma of prostate (~11/2021) ?C61 - Malignant neoplasm of prostate (ICD-10) Surgical History H/O aortic valve replacement with tissue graft ?Z95.4 - Presence of other heart-valve replacement (ICD-10) Hx laparoscopic cholecystectomy ?Z90.49 - Acquired absence of other specified parts of digestive tract (ICD- 10) History of incisional hernia repair (~2010) ?Z98.890 - Other specified postprocedural states (ICD-10) ?Z87.19 - Personal history of other diseases of the digestive system (ICD-10) H/O aortic valve replacement (~09/2020) ?Z95.2 - Presence of prosthetic heart valve (ICD-10) Family History Brother Alcohol use disorder Brain aneurysm Diabetes Father Prostate cancer Diabetes Heart disease Sister Diabetes Social History What is your current living situation?: I presently have a place to live Problems where you live: no known problems Problems where you live details: none In the past 12 months, utilities in danger of being shut off: no In past 12 months, lack of transportation kept you from medical appts, meetings, work, or getting things needed for daily living: no In the past 12 mos, have been you worried that your food would run out before you had money to buy more?: never true In the past 12 mos, the food you bought just didn't last and you didn't have money to buy more?: never true Smoking Status: Former smoker Do you use any of these nicotine containing products: None Second hand tobacco smoke exposure: No How often do you have a drink containing alcohol: never How often do you have six or more drinks on one occasion: Never AUDIT-C Alcohol total score: 0 Non-prescribed substance use: denies use How often does anyone, including family, friends and others, physically hurt you : never How often does anyone, including family, friends and others, insult or talk down to you: never How often does anyone, including family, friends and others, threaten you with harm: never How often does anyone, including family, friends and others, scream or curse at you: never service: Yes Exam Narrative: Exam Narrative: Objective: Patient's vital signs are within normal limits He is alert or x3 He is walks with a step slightly flex back His legs show good strength He has mildly tender lumbosacral paravertebral muscles in the lower back. He denies perineal numbness or leg symptoms as mention. Const: Vital Signs, click to edit/add: Vital Signs - 24 hr 03/02/24 08:49 Temperature 96.8 F L Pulse Rate [Right Pulse Oximeter] 49 L Respiratory Rate 18 Blood Pressure [Ri ght Upper Arm] 134/70 Pulse Oximetry 92 Oxygen Delivery Me thod Room Air Course Vital Signs Vital signs: Initial Vital Signs Temperature 96.8 F L 03/02/24 08:49 Temperature Source Temporal Artery Scan 03/02/24 08:49 Pulse Rate 49 L 03/02/24 08:49 Respiratory Rate 18 03/02/24 08:49 Blood Pressure 134/70 03/02/24 08:49 Blood Pressure Mean 91 03/02/24 08:49 Blood Pressure Position Sitting 03/02/24 08:49 Pulse Oximetry 92 03/02/24 08:49 Oxygen Delivery Method Room Air 03/02/24 08:49 Vital Signs Temperature 96.8 F L 03/02/24 08:49 Pulse Rate 49 L 03/02/24 08:49 Respiratory Rate 18 03/02/24 08:49 Blood Pressure 134/70 03/02/24 08:49 Pulse Oximetry 92 03/02/24 08:49 Oxygen Delivery Method Room Air 03/02/24 08:49 Temperature 96.8 F L 03/02/24 08:49 Pulse Rate 49 L 03/02/24 08:49 Respiratory Rate 18 03/02/24 08:49 Blood Pressure 134/70 03/02/24 08:49 Pulse Oximetry 92 03/02/24 08:49 Oxygen Delivery Method Room Air 03/02/24 08:49 Medications Administered Medications: Discontinued Medications Generic Name Dose Route Start Last Admin Trade Name Freq PRN Reason Stop Dose Admin Morphine Sulfate 7.5 mg 03/02/24 09:20 03/02/24 09:30 Morphine 10 Mg/Ml Inj IM 03/02/24 09:21 7.5 mg ONCE ONE Administration Prednisone 50 mg 03/02/24 09:20 03/02/24 09:30 Prednisone 10 Mg Tablet PO 03/02/24 09:21 50 mg ONCE ONE Administration Medical Decision Making MDM Narrative Medical decision making narrative: [age] white male with acute onset of low back pain over the last week or so he strained his back a in December had a CT scan that showed no extension of his prostate cancer. After that his back improved, now he strained it again with some moving of feed in a bucket and throwing it over a fence. I think he can take a couple days off PT, ice his back regularly. We discussed imaging and with mutual decision making we decided to delay that until we see if he gets better with some medication. Will give a morphine injection 7.5 mg IM now and then will send him home with [place] 5/325 q.8 hours as needed 14 written for, will given prednisone 20 mg b.i.d. x5 days and start 50 mg of prednisone right now. He should recheck with physical therapy in the next few days and restart, recheck with regular doctor in the next few days and return to the ED as needed. Further workup of his back pain could pending his clinical response. Discharge Plan Discharge Clinical Impression: Acute low back pain Patient Disposition: Home w/ Parent or Adult Condition: Stable Additional Instructions: Ice to the back 3 to 4 times a day, [place] as needed for pain, prednisone as prescribed. Cautioned about sedative effect of the [place]. Update your regular doctor within the next 3-5 days if not improving. Return to the ED as needed. Activity Level: Light activity Discharge Diet: Regular Prescriptions: New prednisone 20 mg tablet 20 mg PO BID Qty: 10 0RF hydrocodone-acetaminophen 5-325 mg tablet 1 tab PO Q8H PRN (Reason: pain) Qty: 14 0RF No Action prednisone 5 mg tablet 5 mg PO DAILY metoprolol tartrate 25 mg tablet 25 mg PO BID multivitamin Tablet 1 tab PO QAM ipratropium-albuterol 0.5 mg-3 mg(2.5 mg base)/3 mL solution for nebulization 3 ml INHALATION QID PRN (Reason: dyspnea) albuterol sulfate [Ventolin HFA] 90 mcg/actuation HFA aerosol inhaler 2 puff INHALATION Q4H PRN (Reason: wheezing) aspirin [Adult Low Dose Aspirin] 81 mg tablet,delayed release (DR/EC) 81 mg PO DAILY rosuvastatin 20 mg tablet 20 mg PO HS Anoro Ellipta 62.5-25 mcg/actuation blister with device 1 inh INHALATION DAILY calcium carbonate-vitamin D3 600 mg-10 mcg (400 unit) tablet 1 tab PO BID acetaminophen 500 mg tablet 1,000 mg PO TID PRN oxycodone 5 mg capsule 5 mg PO Q6H PRN (Reason: pain) Qty: 7 0RF prednisone 10 mg tablet 10 mg PO DIRECTED Qty: 30 0RF Rx Instructions: Take 40 mg daily for 3 days, then 30 mg daily for 3 days, then 20 mg daily for 3 days, then 10 mg daily for 3 days, then your regular 5 mg daily gabapentin 100 mg capsule 100 mg PO TID Qty: 21 0RF fluticasone propionate [Flonase Allergy Relief] 50 mcg/actuation spray,suspension 2 spray intranasal DAILY Qty: 16 0RF Rx Instructions: administer into each nostril Erleada 60 mg tablet 240 mg PO QDAY Qty: 120 2RF Follow Up/Referrals: Jacquelyn Fleming PAMaryaC [Primary Care Provider] - Stand Alone Forms: [facility] Info Instructions
--- OUTSIDE RECORDS SUMMARY | 2024-03-02 09:24 | XMS_ITS ---
Author Organization [facility] Address [address] [place] [address] Care Team Providers Care It Support Consultant Name Role Phone Unavailable Unavailable Unavailable Surgery Details Not on file Complications Check Surgery Details section. Procedure Estimated Blood Loss Check Surgery Details section. Procedure Findings Check Surgery Details section. Procedure Specimens Taken Check Surgery Details section.
--- OUTSIDE RECORDS SUMMARY | 2024-03-02 09:24 | XMS_ITS ---
Author Organization [facility] Address [address] [place] [address] Care Team Providers Care Outdoor Advertising Leasing Agent Name Role Phone Unavailable Primary Care Provider [...] Treated Prescribed Fraction Dose Prescribed Total Dose [id number] 03/18/2022 36 26 of 26 270 cGy 7,020 cGy Reference Point Last Treated On Elapsed Days Session Dose Total Dose [id number] 03/18/2022 36 270 cGy 7,020 cGy
--- OUTSIDE RECORDS SUMMARY | 2024-03-02 09:24 | XMS_ITS | Clinical Summary ---
Author Organization [facility] Address [place], [place] [address] Care Team Providers Care Fixed Capital Clerk Name Role Phone Stone He MD Unavailable [phone] Jacquelyn Fleming Primary Care Provider Edgar Meier MD Unavailable Luis Perdomo MD Unavailable [phone] Allergies Active Allergy Reactions Criticality Noted Date Comments [place] Cough 03/13/2023 Mold Cough 03/13/2023 Medications Medication Sig Dispensed Refills Start Date End Date Status NebulizerIndications :Pneumonitis, hypersensitivity (HC),Bronchitis,Mild intermittent asthma, uncomplicated Nebulizer disposable neb kit x 4, reuseable neb kit x 1, mask x 1, filters x 1. Use qid Medication: duoneb Length of need: 99 months 1 Device 9 Active multivitamin (MVI) tablet Take 1 tablet by mouth once daily. 0 0 Active aspirin (ECOTRIN) 81 mg enteric coated tablet Take 1 tablet by mouth once daily with a meal. 0 0 Active acetaminophen (TYLENOL EXTRA STRGTH) 500 mg tabletIndications:S/ P AVR (aortic valve replacement) Take 2 tablets by mouth 3 times daily. Max acetaminophen dose: 4000mg in 24 hrs. 0 1 Active medication order composer Earlita-oral chemo-4 tabs/day 120 Tablet 3 Active medication order composer Lupron injections q3 months. 1 Dose 3 Active nebulizer accessories kitIndications:Mild intermittent asthma without complication For home use. Length of need: 99 1 Kit 3 Active metoprolol tartrate (LOPRESSOR) 25 mg tabletIndications:S/ P AVR (aortic valve replacement) Take 1 Tablet (25 mg) by mouth two times daily. 180 Tablet 3 3 Active albuterol HFA (PRO-AIR; VENTOLIN; PROVENTIL) 90 mcg/actuation inhalerIndications:P neumonitis, hypersensitivity (HC) Inhale 2 Puffs by mouth every 4 hours if needed for Shortness Of Breath or Wheezing. 18 g 11 4 Active Mucus Clearing Device deviIndications:COPD with chronic bronchitis (HC) As directed. High frequency 4 Active rosuvastatin (CRESTOR) 20 mg tabletIndications:Co ronary artery disease, unspecified vessel or lesion type, unspecified whether angina present, unspecified whether shawnee or transplanted heart TAKE 1 TABLET BY MOUTH AT BEDTIME 90 Tablet 2 4 Active predniSONE (DELTASONE) 5 mg tabletIndications:Pr ostate cancer (HC) Take 1 Tablet (5 mg) by mouth once daily with a meal. 90 Tablet 1 4 Active Anoro Ellipta 62.5-25 mcg/actuation inhalerIndications:C hronic obstructive pulmonary disease, unspecified COPD type (HC) INHALE 1 PUFF BY MOUTH ONCE DAILY. DISCARD INHALER 6 WEEKS AFTER OPENING OR WHEN THE COUNTER READS '0' (AFTER ALL BLISTERS HAVE BEEN USED), WHICHEVER COMES FIRST. 180 Each 1 4 Active nabumetone (RELAFEN) 500 mg tabletIndications:Ac drew midline low back pain with left-sided sciatica Take 1 Tablet (500 mg) by mouth two times daily with meals. 60 Tablet 4 Active nystatin powder (MYCOSTATIN) powderIndications:Ra sh Apply 1 Strip topically to affected area(s) three times daily. 60 g 5 4 Active albuterol-ipratropiu m (DUONEB) (2.5-0.5 mg) in 3 mL NEBULIZATION solutionIndications: Pneumonitis, hypersensitivity (HC) Inhale 3 mL via a nebulizer 4 times daily if needed for Shortness of Breath 1st choice. 270 mL 1 4 Active albuterol-ipratropiu m (DUONEB) (2.5-0.5 mg) in 3 mL NEBULIZATION solutionIndications: Pneumonitis, hypersensitivity (HC) INHALE 3 ML VIA A NEBULIZER 4 TIMES DAILY IF NEEDED FOR SHORTNESS OF BREATH 1ST CHOICE. 270 mL 1 4 02/24/20 24 Discontinu ed(Reorder (E-cancel not sent)) Active Problems Problem Noted Date Diagnosed Date [...] Encounters Date Type Department Care Team Description 01/20/2024 1:00 PM CDT Office Visit [facility] [address] [facility] [place] [id number] Jacquelyn Fleming PA ER Follow up (Back pain, pain radiates down L buttock and leg) 01/20/2024 Travel 01/10/2024 Orders Only [facility] Scanner 1 scan: (1-Ord) NE, LUMBAR , 01/10/2024 12/29/2023 Refill [facility] [address] [place] [address] Jacquelyn Fleming PA Refill Request (Prednisone) 12/14/2023 9:30 AM CDT Office Visit [facility] [address] [place] [address] Jacquelyn Fleming PA Medicare ANNUAL (subsequent) Visit (73 years old) 12/14/2023 Travel 12/04/2023 2:20 PM CDT Office Visit [facility] [address] [place] [id number] Jacquelyn Fleming PA Cough (Productive cough, having trouble sleeping. Wheezing. X 2 weeks); Sinus Problem (congestion) 12/04/2023 Travel 12/04/2023 Refill [facility] [address] [place] [id number] Jacquelyn Fleming PA Refill Request (Albuterol-ipratropiu m) from Last 3 Months Immunizations Name Administration Dates Next Due Amb Influenza, Inact (High-d ose) (Flu Clinic Only) 07/11/2016 COVID-19 vaccine (Moderna 50mcg/0.5mL) 12YO+ BIVALENT PF, MDV 06/27/2022 COVID-19 vaccine (LendFriend-Bio NTech 30mcg/0.3mL) PF, MDV 11/20/2020,10/30/2020 Influenza, High-dose [...] Sign Reading Time Taken Comments Blood Pressure 129/85 01/20/2024 1:01 PM CDT Pulse 71 01/20/2024 1:01 PM CDT Temperature 36.7 ??C (98.1 ??F) 12/04/2023 2:11 PM CD T Respiratory Rate 16 10/08/2023 8:33 AM ACCESSIONER Oxygen Saturation 96% 01/20/2024 1:01 PM CDT Inhaled Oxygen Concentration - - Weight 93.4 kg (206 lb) 01/20/2024 1:01 PM CDT Height 175.3 cm (5' 9) 12/14/2023 9:31 AM CDT Body Mass Index 30.42 12/14/2023 9:31 AM CDT Plan of Treatment Upcoming Encounters Date Type Department Care Team (Late st Contact Info) Description 04/07/2024 11:00 AM CDT Office Visit [facility] [address] [place] [address] Luis Perdomo MD [address] [facility] [place] [address] Health Maintenance Due Date Last Done Comments Zoster (shingles) series for age 50+ (1 of 2) 08/29/2013 07/04/2013 COVID-19 vaccine series (2022-24 season) 2023 08/10/2023, 06/27/2022, 07/16/2021, Additional history [...] Completed 12/31/2021 Medical Devices Implanted Type Area Statistical Machine Mechanic Device Identifier Shelf Expiration Date Model / Serial / Lot Valve Aortic 27mm Inspirus Resilia Tissue - [id number] Implanted:Qty: 1 on 10/05/2020 by Darshan Cavanaugh MD at [facility] N/A: Aortic Valve BolsterciEdusoft Arielle 05/03/2024 [id number] / [id number] / Description:No rinse needed per case management manager Procedures Procedure Name Priority Date/Time Associated Diagnosis Comments SCAN-CT INTERPRETATION 12:00 AM CDT LIPID PANEL W REFLEX MEASURED LDL Routine 12/14/2023 10:26 AM CDT Coronary artery disease, unspecified vessel or lesion type, unspecified whether angina present, unspecified whether shawnee or transplanted heart BASIC METABOLIC PANEL Routine 12/14/2023 10:26 AM CDT Hypertension, unspecified type COLONOSCOPY SCREENING Routine 02/09/2023 12:[address] ABDOMEN PELVIS WO Routine 12/31/2021 1:11 PM CDT Prostate cancer (HC) ANTI HCV Routine 12/02/2021 8:17 AM CDT Need for hepatitis C screening test from Last 3 Months or Most Recently Relevant to Health Maintenance Results * SCAN-CT INTERPRETATION (01/10/2024 12:00 AM CDT) Anatomical Region Laterality Modality Other Scanner OTHER * LIPID PANEL W REFLEX MEASURED LDL (12/14/2023 10:26 AM CDT) CHOLESTEROL,TOTAL 158 100 - 199 mg/dL 12/14/2023 7:17 PM CDT [facility] Comment: Cholesterol, Total Reference Ranges Desirable <200 mg/dL Borderline 200-239 mg/dL High >=240 mg/dL TRIGLYCERIDES 101 <150 mg/dL 12/14/2023 7:17 PM CDT [facility] HDL CHOLESTEROL 57 >40 mg/dL 7:17 PM CDT [facility] NON-HDL CHOLESTEROL 101 <145 mg/dl 12/14/2023 7:17 PM CDT [facility] CHOL/HDL RATIO 2.77 <4.50 12/14/2023 7:17 PM CDT [facility] LDL CHOLESTEROL 81 <=130 mg/dL 12/14/2023 7:17 PM CDT [facility] VLDL CHOLESTEROL 20 <=30 mg/dL 12/14/2023 7:17 PM CDT [facility] PROVIDER ORDERED STATUS RANDOM 12/14/2023 7:17 PM T [facility] Blood BLOOD SPECIMEN / Unknown Venipuncture / Unknown 12/14/2023 10:26 AM CDT 12/14/2023 10:26 AM CDT Jacquelyn RICE CHEMISTRY [facility] [address] [place] [address], * (ABNORMAL) BASIC METABOLIC PANEL (12/14/2023 10:26 AM CDT) SODIUM 136 136 - 145 mmol/L 12/14/2023 7:17 PM T [facility] POTASSIUM 4.5 3.5 - 5.1 mmol/L 12/14/2023 7:17 PM [facility] CHLORIDE 99 98 - 107 mmol/L 12/14/2023 7:17 PM T [facility] CO2,TOTAL 28 22 - 29 mmol/L 12/14/2023 7:17 PM [facility] ANION GAP 9 5 - 18 12/14/2023 7:17 PM [facility] GLUCOSE 117(H) 70 - 99 mg/dL 12/14/2023 7:17 PM T [facility] CALCIUM 9.5 8.8 - 10.2 mg/dL 12/14/2023 7:17 PM T [facility] BUN 19 8 - 23 mg/dL 12/14/2023 7:17 PM [facility] CREATININE 1.00 0.70 - 1.20 mg/dL 12/14/2023 7:17 PM [facility] BUN/CREAT RATIO 19 10 - 20 7:17 PM CDT [facility] eGFR 79(L) >90 mL/min/1.7 3m2 12/14/2023 7:17 PM CDT [facility] Comment:As of 2021, eG FR is calculated by the CKD-EPI creatinine equation without race adjustment. ??eGFR can be influenced by muscle mass, exercise, and diet. ??The reported eGFR is an estimation only and is only applicable if the renal function is stable. Blood BLOOD SPECIMEN / Unknown Venipuncture / Unknown 12/14/2023 10:26 AM CDT 12/14/2023 10:26 AM CDT Jacquelyn [facility] [address] [place] [address], [place] * COLONOSCOPY SCREENING [[id number]] (02/09/2023 12:00 AM CDT) Jacquelyn RICE GI PROCEDURE OR D * CT ABDOMEN PELVIS WO (12/31/2021 1:11 PM CDT) Anatomical Region Laterality Modality Abdomen, Pelvis, AORTA, LIVER, SPLEEN Computed Tomography 12/31/2021 2:49 PM CDT Narrative 12/31/2021 2:49 PM CDT For Patients: ??As a result of the Century Cures Act, medical imaging exams and [...] guero Non-React guero 12/02/2021 5:53 PM CDT [facility] Comment:Antibodies to HCV no t detected; does not exclude the possibility of exposure to HCV. Blood BLOOD SPECIMEN / Unknown Venipuncture / Unknown 12/02/2021 8:17 AM CDT 12/02/2021 8:18 AM CDT Jacquelyn RICE SEND OUTS [facility] [address] [place] [address], from Last 3 Months or Most Recently Relevant to Health Maintenance Advance Directives * Full Code (Latest Code Status on File) Date Activated Date Inactivated Comments 10/05/2020 6:34 AM 10/10/2020 2:00 PM preop Question Answer Comments Code Status Discussion: Other (specify in commen ts): Care Teams Fixed Capital Clerk Relationship Specialty Start Date End Date Jacquelyn Fleming PA [address] [place] [address] PCP - General Physician Culture Manager 07/25/22 Stone He MD [address] [place] [address] Surgery - Urology 07/25/22 Edgar Meier MD [address] [place] [address] Internal Medicine 07/25/22 [place] [address] [place] [address] Pulmonology Pulmonary Medicine 10/08/23
--- OUTSIDE RECORDS SUMMARY | 2024-03-02 09:24 | XMS_ITS | Clinical Summary ---
Author Organization [facility] Address [address] [place] [address] Care Team Providers Care Lining Closer Name Role Phone Unavailable Primary Care Provider Unavailabl e Source Comments Patient records contain information from all sites at [facility]. For routine questions regarding patient records, call [phone] during business hours, M-F 8:00 AM - 5:00 PM Central Time. Record requests for emergency care only can be directed to [phone] at any time.[facility] Allergies Active Allergy Reactions Criticality Noted Date Comments [place] Cough 03/13/2023 Mold Cough 03/13/2023 Medications Medication [...] Used Date Smoking Tobacco: Former Cigarettes 2 - 1989 Smokeless Tobacco: Never Tobacco Cessation:Counseling [...] your living situation today? I have a [facility] place to live 03/15/2023 Sex and [...] Zoster Vaccines (1 of 2) 08/29/2013 07/04/2013 Depression Screening (Annual PHQ-2) 08/24/2023 Fall Risk Screen (Annual) 08/24/2023 COVID-19 Vaccine ( season) 2023 08/10/2023, 06/27/2022, 07/16/2021, Additional history exists DTaP,Tdap,and Td Vaccines (2 - Td or Tdap) 12/20/2023 12/19/2013 Influenza Vaccine (#1) 2024 , 05/07/2021, 05/02/2019, Additional history exists Fasting Glucose for Diabetes Screening 06/01/2026 06/01/2023, 12/10/2022, 12/02/2021, Additional history exists Colonoscopy 02/10/2028 02/09/2023, 11/02/2014 Colorectal Cancer Surveillance 02/10/2028 Pneumococcal vaccine (65+ years) Completed 11/21/2016, 11/14/2015 Abdominal Aortic Aneurysm (AAA) Screen Completed 12/31/2021, 12/31/2021 HPV Vaccines Aged Out No longer eligi ble based on patient's age to complete this topic Medical Devices Implanted Type Area Director Global Development Device Identifier Shelf Expiration Date Model / [...]
--- OUTSIDE RECORDS SUMMARY | 2024-03-02 09:24 | XMS_ITS | Referral Summary ---
Author Organization [facility] Address [address] [place] [address] Care Team Providers Care Tank Cleaning Supervisor Name Role Phone Unavailable Primary Care Provider Unavailabl e Source Comments Patient records contain information from all sites at [facility]. For routine questions regarding patient records, call [phone] during business hours, M-F 8:00 AM - 5:00 PM Central Time. Record requests for emergency care only can be directed to [phone] at any time.[facility] Allergies Active Allergy Reactions Criticality Noted Date Comments [place] Cough 03/13/2023 Mold Cough 03/13/2023 Medications Medication [...] your living situation today? I have a [facility] place to live 03/15/2023 Sex and [...] on file Medical Devices Implanted Type Area Optometry Professor Device Identifier Shelf Expiration Date Model / [...]
--- OUTSIDE RECORDS SUMMARY | 2024-03-02 09:24 | XMS_ITS | Data Portability ---
Author Organization [place] [facility] Address [address] [place] [address] Care Team Providers Care Cleaning Maid Name Role Phone SATNA MACIAS Primary Care Provider Assessment No assessment recorded. Plan of Treatment Reminders Order Date Submit Date Provider Last Modified By Organization Details Last Modified Time Details Appointments None recorded. Lab None recorded. Referral None recorded. Procedures None recorded. Surgeries None recorded. Imaging None recorded. Medication Orders ceftriaxone 1 gram solution for injection 2021 022 [email or web address] Not available 09:26:08 Casodex 50 mg tablet 2021 022 [facility] [id number] [employer], [facility] [address] [place], [address], 17:57:10 Patient TargetsNo targets recorded. Patient Instructions Encounter Date Encounter Id Patient Instructions Last Modified By Organization Details Last Modified Time 01/08/2022 [id number] 45 minute discussion Not available 01/08/2022 18:30:23 Reason for Referral None Reported. Results Created Date Observation Date Name Description Value Unit Range Abnormal Flag LastModifiedBy Organization Detail LastModifiedTime 12/24/1912/18/2021 imagi ng/di agnos tic resul t No observ ation record ed. [email or web address] Not Available 12/23/2021 08:02:52 01/07/20 22 12/31/2021 [...] Biopsy Procedure completed Stone He MD [address],[address], [place], [address], [facility] 12/18/2021 09:52:48 10/05/19 21 replacement of aortic valve completed Radha castrejon [facility] 12/18/2021 09:08:57 11/03/19 15 Colonoscopy completed Radha castrejon [facility] 12/18/2021 09:09:36 06/08/20 10 Cholecystectomy completed Radha castrejon [facility] 12/18/2021 09:09:51 Imaging Results Imaging Date Name Status LastModified by Organiz ation Details LastModified Time 12/18/2021 imaging/diagn ostic result completed Information not available 12/23/2021 08:02:52 12/31/2021 NM, [...] Updated DateTime 12/18/2021 180.34 cm 27.9 kg/m2 48377.47 g Radha WEBER - [facility] 12/18/2021 09:26:32 Date Recorded Body height Body mass index (BMI) Body weight Provider Name and Address Organization Details Last Updated DateTime 01/08/2022 180.34 cm 27.9 kg/m2 87249.47 g Stone He MD [address] [place] [address],[address], [place], [address], [place] [facility] 01/08/2022 17:05:32 Social History Question Answer Notes LastModified by Organizat ion Details LastModified Time Tobacco Smoking Status Former Smoker quit 1989 Radha Johnstonoza TIA castrejon - [facility] 12/18/2021 09:10:26 When Did You Quit Smoking? 15+yearssin ariane kyle [email or web address] Information not available 12/18/2021 What Was The Date Of Your Most Recent Tobacco Screening? 01/08/2022 Information not available 01/08/2022 Sex: Unknown Functional Status None recorded. Mental Status None recorded. Family History Relationship Description Onset Age of this Age Resolved Age Notes Father Family history of malignant neoplasm of prostate Medical History Condition Response Other Y Cancer Y Past Encounters Encounter ID Performer Location Encounter Start Date Encounter Closed Date Diagnosis/Indication Diagnosis SNOMED-CT Code [id number] MD WENDY Frances_Clar[facility] [address] [place] [id number] 12/18/2021 09:01:42 12/20/2021 16:04:23 Prostate specific antigen above reference range [id number] MD WENDY Frances_Clarisse [address] [place] [id number] 01/08/2022 16:46:59 01/13/2022 08:58:44 Carcinoma of prostate 763864109 Health Concerns Section Related Observation LastModified by Organization Detai ls LastModified Time None Recorded Concern Status LastModified by Organization Details LastModified Time None Recorded Advance Directives Directive None Recorded Payers Encounter Date Sequence Insurance Name Policy Number Policy Cifuentes Covered Member ID Cifuentes Member ID Guarantor Name 12/18/2021 1 [facility] (MEDICARE REPLACEMENT/A DVANTAGE - PPO) [id number] Faizan Simon [id number] Faizan Simon 01/08/2022 1 [facility] (MEDICARE REPLACEMENT/A DVANTAGE - PPO) [id number] Faizan Simon [id number] Faizan Simon Notes Date Note Type Note [...] (10/20/12) - 1.76 (09/24/11) Stone He MD [address] [place] [address],[address], [place], [address], [facility] 12/18/2021 09:54:07 01/08/2022 text/html HPI Notes: [...] - + Prostate cancer - cT2c - [place] 4+4 = 8 - [place] 4+4 = 8 - Left apex/mid/base, Right base - (100%) - no perineural invasion - [place] 3+4 = 7 - Right apex (10%) - no perineural invasion - [place] 3+3 = 6 - Right mid (60%) - no perineural invasion 01/08/22 - He presents for prostate cancer counseling. He voids every 2-3 hours during the day and 1-2x/night. He denies hesitancy, slow stream, urgency, or dysuria. PSA - 52.29 (12/02/21) - 3.96 (10/20/14) - 1.89 (10/20/12) - 1.76 (09/24/11) CT scan (12/31/21) - no evidence of metastatic disease - no enlarged lymph nodes Bone scan (12/31/21) - no evidence for skeletal metastatic disease Stone He MD [address] [facility],[address], [place], [address], [facility] 01/08/2022 18:34:33
[2024-03-02] MEDS: MORPHINE 10 MG/ML inj 7.5 MG IM (09:30)
[2024-03-02] MEDS: predniSONE 10 MG TABLET 50 MG PO (09:30)
[2024-03-02 09:50] VITALS: BP 143/79; PULSE 46; O2SAT 91
[2024-03-02 10:00] VITALS: RESP 20
== END 2024-03-02 10:01 | disposition home or self-care (01) ==
LOC: ED 09:22
PROVIDERS: Emergency Provider Family Medicine; PCP Physician Assistant Medical
DX: M54.50 Low back pain, unspecified (principal)
CPT/HCPCS: 96372; 99283; 99284; J2270; J7512

== ENCOUNTER 2024-03-07 13:27 | Emergency (ER) | payer MEDICARE, SELFPAY ==
[2024-03-07 13:35] VITALS: BP 124/86; PULSE 57; RESP 14; TEMP 36; O2SAT 94; BMI 28.3
--- NOTE | 2024-03-07 14:12 | ED_ITS ---
HPI - General Adult General Time Seen by Provider: 14:13 Date Seen: 03/07/24 Chief complaint: Constipation Stated complaint: constipation bowel obstruction Time Seen by Provider: 03/07/24 14:12 Source: patient Mode of arrival: ambulatory Limitations: no limitations History of Present Illness HPI narrative: Alvin is a very pleasant 73-year-old gentleman with history of low back pain currently on a narcotic who comes to the emergency room for evaluation of constipation. Patient notes that he has not been able to have a bowel movement for 5 days. This coincides with the use of [place] for back pain. Patient was noted to have had history of prostate cancer, had and CT in December of this year that did not show any extension of the prostate and had actually been feeling better after treatments. He was doing some heavy work and ?threw his back out? and was seen last week. At that time he was diagnosed with a lumbar strain placed on [place] as well as prednisone. While that has helped his pain he has not been able to have a bowel movement. He denies significant abdominal pain but does note that he feels like he needs to use the bathroom. He has had 3 enemas at this time and this morning on his 3rd enema he did have some blood in the stool. He has not had any fever chills or vomiting. He started on Dulcolax and MiraLax and unfortunately has not been able have a bowel movement. No past history of bowel obstruction. He has not had fever or chills. Related Data Home Medications ?Medication ?Instructions ?Recorded ?Confirmed metoprolol tartrate 25 mg tablet 25 mg PO BID 04/07/22 01/10/24 multivitamin 1 tab PO QAM 04/07/22 01/20/24 prednisone 5 mg tablet 5 mg PO DAILY 02/03/23 01/20/24 albuterol sulfate 90 mcg/actuation 2 puff inhalation Q4H PRN wheezing 11/04/23 01/20/24 aerosol inhaler (Ventolin HFA) aspirin 81 mg tablet,delayed 81 mg PO DAILY 11/04/23 01/20/24 release (Adult Low Dose Aspirin) calcium carbonate 600 mg-vitamin 1 tab PO BID 11/04/23 01/20/24 D3 10 mcg (400 unit) tablet ipratropium 0.5 mg-albuterol 3 mg 3 ml inhalation QID PRN dyspnea 11/04/23 01/20/24 (2.5 mg base)/3 mL nebulization soln rosuvastatin 20 mg tablet 20 mg PO HS 11/04/23 01/20/24 umeclidinium 62.5 mcg-vilanterol 1 inh inhalation DAILY 11/04/23 01/20/24 25 mcg/actuation powdr for inhalation (Anoro Ellipta) acetaminophen 500 mg tablet 1,000 mg PO TID PRN 11/09/23 01/20/24 Previous Rx's ?Medication ?Instructions ?Recorded apalutamide 60 mg tablet (Erleada) 240 mg (4 x 60 mg) PO QDAY #120 07/29/23 tabs fluticasone propionate 50 2 spray intranasal DAILY #16 grams 01/10/24 mcg/actuation nasal spray,suspension (Flonase Allergy Relief) gabapentin 100 mg capsule 100 mg PO TID #21 caps 01/10/24 oxycodone 5 mg capsule 5 mg PO Q6H PRN pain #7 caps 01/10/24 prednisone 10 mg tablet 10 mg PO DIRECTED #30 tabs 01/10/24 hydrocodone 5 mg-acetaminophen 325 1 tab PO Q8H PRN pain #14 tabs 03/02/24 mg tablet prednisone 20 mg tablet 20 mg PO BID #10 tabs 03/02/24 linaclotide 145 mcg capsule 145 mcg PO DAILY #2 caps 03/07/24 (Linzess) Allergies Allergy/AdvReac Type Severity Reaction Status Date / Time oxybutynin AdvReac Mild Verified 01/20/24 14:05 Review of Systems Status of ROS: Reports: 10 or more systems reviewed and unremarkable except as noted in History and below [facility] Medical History English's lung ?J67.0 - English's lung (ICD-10) Pulmonary infection ?J18.9 - Pneumonia, unspecified organism (ICD-10) Primary malignant neoplasm of prostate ?C61 - Malignant neoplasm of prostate (ICD-10) Bicuspid aortic valve ?Q23.1 - Congenital insufficiency of aortic valve (ICD-10) Chronic obstructive pulmonary disease (COPD) ?J44.9 - Chronic obstructive pulmonary disease, unspecified (ICD-10) Asthma ?J45.909 - Unspecified asthma, uncomplicated (ICD-10) Surgical wound dehiscence ?T81.31XA - Disruption of external operation (surgical) wound, not elsewhere classified, initial encounter (ICD-10) Thoracic aortic ectasia ?I77.810 - Thoracic aortic ectasia (ICD-10) Colon polyp ?K63.5 - Polyp of colon (ICD-10) Essential hypertension ?I10 - Essential (primary) hypertension (ICD-10) Pulmonary fibrosis ?J84.10 - Pulmonary fibrosis, unspecified (ICD-10) [place]' lung ?J67.0 - English's lung (ICD-10) Adenocarcinoma of prostate (~11/2021) ?C61 - Malignant neoplasm of prostate (ICD-10) Surgical History H/O aortic valve replacement with tissue graft ?Z95.4 - Presence of other heart-valve replacement (ICD-10) Hx laparoscopic cholecystectomy ?Z90.49 - Acquired absence of other specified parts of digestive tract (ICD- 10) History of incisional hernia repair (~2010) ?Z98.890 - Other specified postprocedural states (ICD-10) ?Z87.19 - Personal history of other diseases of the digestive system (ICD-10) H/O aortic valve replacement (~09/2020) ?Z95.2 - Presence of prosthetic heart valve (ICD-10) Family History Brother Alcohol use disorder Brain aneurysm Diabetes Father Prostate cancer Diabetes Heart disease Sister Diabetes Social History What is your current living situation?: I presently have a place to live Problems where you live: no known problems Problems where you live details: none In the past 12 months, utilities in danger of being shut off: no In past 12 months, lack of transportation kept you from medical appts, meetings, work, or getting things needed for daily living: no In the past 12 mos, have been you worried that your food would run out before you had money to buy more?: never true In the past 12 mos, the food you bought just didn't last and you didn't have money to buy more?: never true Smoking Status: Former smoker Do you use any of these nicotine containing products: None Second hand tobacco smoke exposure: No How often do you have a drink containing alcohol: never How often do you have six or more drinks on one occasion: Never AUDIT-C Alcohol total score: 0 Non-prescribed substance use: denies use How often does anyone, including family, friends and others, physically hurt you : never How often does anyone, including family, friends and others, insult or talk down to you: never How often does anyone, including family, friends and others, threaten you with harm: never How often does anyone, including family, friends and others, scream or curse at you: never service: Yes Exam Narrative: Exam Narrative: Faizan is alert and oriented. Very pleasant gentleman. No acute distress at this time. External ears eyes nose clear. Heart with regular rate and rhythm lungs are clear. Abdomen soft. Bowel sounds are present. Examination of the anal area shows a nonthrombosed hemorrhoid at approximately 1200 hours. No active bleeding at this time. Digital exam shows no stool in the rectal vault. No blood on the glove of the finger when removed. Const: Vital Signs, click to edit/add: Vital Signs - 24 hr 03/07/24 13:35 03/07/24 16:21 Temperature 96.8 F L Pulse Rate [Pulse Oximeter] 57 L 91 Respiratory Rate 14 22 Blood Pressure [Ri ght Upper Arm] 124/86 128/104 H Pulse Oximetry 94 92 Oxygen Delivery Me thod Room Air Room Air Documenting provider has reviewed patient's vital signs: yes Course Course ED Course: At this time patient does describe opioid induced constipation. No evidence of bowel obstruction symptoms with no abdominal pain, vomiting fever chills. Patient had reassuring CT in regards to his prostate cancer in December of this year. I think this is likely secondary to the use of [place]. At this time will order flat plate and upright. Will offer enema if x-ray is reassuring. However, given the fact that the stool is not near the anal opening the chances of the enema working tonight are not very good. Reevaluation(s) Reevaluation #1: Flat plate and upright by my read shows no evidence of air-fluid levels or evidence of a bowel obstruction. Will proceed with enema per patient request after initially discussed discharge on stool softeners. Reevaluation #2: Patient noted to have 1 small hard stool. Did have blood in stool once again after the enema. Vital Signs Vital signs: Initial Vital Signs Temperature 96.8 F L 03/07/24 13:35 Temperature Source Temporal Artery Scan 03/07/24 13:35 Pulse Rate 57 L 03/07/24 13:35 Pulse Rhythm Regular 03/07/24 13:35 Respiratory Rate 14 03/07/24 13:35 Blood Pressure 124/86 03/07/24 13:35 Blood Pressure Mean 98 03/07/24 13:35 Blood Pressure Position Sitting 03/07/24 13:35 Pulse Oximetry 94 03/07/24 13:35 Oxygen Delivery Method Room Air 03/07/24 13:35 Vital Signs Temperature 96.8 F L 03/07/24 13:35 Pulse Rate 57 L 03/07/24 13:35 Respiratory Rate 14 03/07/24 13:35 Blood Pressure 124/86 03/07/24 13:35 Pulse Oximetry 94 03/07/24 13:35 Oxygen Delivery Method Room Air 03/07/24 13:35 Temperature 96.8 F L 03/07/24 13:35 Pulse Rate 91 03/07/24 16:21 Respiratory Rate 22 03/07/24 16:21 Blood Pressure 128/104 H 03/07/24 16:21 Pulse Oximetry 92 03/07/24 16:21 Oxygen Delivery Method Room Air 03/07/24 16:21 Medical Decision Making MDM Narrative Medical decision making narrative: 1. Constipation-this is likely opioid induced. Patient did not have good results with the enema. This was his 4th enema and he did have some blood in the fluid. Do not want to place him through any more of this. Would rather he switch to oral laxatives. Will use senna 2 tablets b.i.d. along with MiraLax 2 doses b.i.d.. Patient may also use magnesium citrate tonight. Have also spoken with Faizan about the use of Relistor verses Linzess. I thinks that Linzess is likely the better option for him as it has less side effects. Again, no evidence of a bowel obstruction in this gentleman. Will give him a dose of Linzess 145 mcg tonight with 1 extra tablet to take tomorrow if he has not had a bowel movement. 2. Disposition-home at this time. Return for worsening symptoms. I do want him that they will likely have cramping based on all of the medications he is taking. If he has the onset of fever vomiting worsening discomfort would ask that he return to the emergency room. Medical Records Medical records reviewed: Yes I reviewed the patient's medical records Imaging Data Flat plate and upright x-ray: Attestation: I have reviewed the pertinent imaging results. My impression: No evidence of air-fluid levels or signs of obstruction. Radiologist's impression: Upright and supine views of the abdomen and pelvis. Comparison: CT chest report on November 04 2023 and multiple prior reports Findings/impression : There is no evidence of bowel obstruction. No free air. Large volume stool burden throughout the colon. Postsurgical changes of median sternotomy and aortic valve replacement with likely retained epicardial pacing wire. Likely splenic artery calcifications. Postsurgical changes of cholecystectomy and hernia mesh placement overlying the pelvis. No acute osseous abnormality. Discharge Plan Discharge Clinical Impression: Constipation Patient Disposition: Home, Self-Care Condition: Unchanged Additional Instructions: I suggest the following for constipation. First reduce or eliminate the use of narcotics for your pain. Second, start with senna a laxative 2 tablets tonight and 2 tablets tomorrow morning. I would also take a full dose of MiraLax tonight and tomorrow morning. This will cause cramping but should help with stooling. You may also use magnesium citrate tonight. I HAVE ADDED A PRESCRIPTION FOR A MEDICATION CALLED LINZESS. THIS SHOULD IS SUPPOSED TO HELP WITH OPIATE I DO SEE CONSTIPATION. I WILL GIVE YOU 2 TABLETS. TAKE 1 TABLET TONIGHT. IF YOU HAVE NOT STOOL TOMORROW TAKE THE 2ND TABLET. Return or seek medical attention for worsening symptoms. Especially for fever, increased blood in your stool and as needed. Prescriptions: New Linzess 145 mcg capsule 145 mcg PO DAILY Qty: 2 0RF No Action prednisone 5 mg tablet 5 mg PO DAILY metoprolol tartrate 25 mg tablet 25 mg PO BID multivitamin Tablet 1 tab PO QAM ipratropium-albuterol 0.5 mg-3 mg(2.5 mg base)/3 mL solution for nebulization 3 ml INHALATION QID PRN (Reason: dyspnea) albuterol sulfate [Ventolin HFA] 90 mcg/actuation HFA aerosol inhaler 2 puff INHALATION Q4H PRN (Reason: wheezing) aspirin [Adult Low Dose Aspirin] 81 mg tablet,delayed release (DR/EC) 81 mg PO DAILY rosuvastatin 20 mg tablet 20 mg PO HS Anoro Ellipta 62.5-25 mcg/actuation blister with device 1 inh INHALATION DAILY calcium carbonate-vitamin D3 600 mg-10 mcg (400 unit) tablet 1 tab PO BID acetaminophen 500 mg tablet 1,000 mg PO TID PRN oxycodone 5 mg capsule 5 mg PO Q6H PRN (Reason: pain) Qty: 7 0RF prednisone 10 mg tablet 10 mg PO DIRECTED Qty: 30 0RF Rx Instructions: Take 40 mg daily for 3 days, then 30 mg daily for 3 days, then 20 mg daily for 3 days, then 10 mg daily for 3 days, then your regular 5 mg daily gabapentin 100 mg capsule 100 mg PO TID Qty: 21 0RF fluticasone propionate [Flonase Allergy Relief] 50 mcg/actuation spray,suspension 2 spray intranasal DAILY Qty: 16 0RF Rx Instructions: administer into each nostril prednisone 20 mg tablet 20 mg PO BID Qty: 10 0RF hydrocodone-acetaminophen 5-325 mg tablet 1 tab PO Q8H PRN (Reason: pain) Qty: 14 0RF Erleada 60 mg tablet 240 mg PO QDAY Qty: 120 2RF Follow Up/Referrals: Jacquelyn Fleming PA-C [Primary Care Provider] - Stand Alone Forms: My[facility] Info Instructions
--- NOTE | 2024-03-07 14:34 | CRLHL7_ITS ---
For Patients: As a result of the Century Cures Act, medical imaging exams and procedure reports are released immediately into your electronic medical record. You may view this report before your referring provider. If you have questions, please contact your health care provider. Indication: constipation and pain Technique: Upright and supine views of the abdomen and pelvis. Comparison: CT chest report on November 04 2023 and multiple prior reports Findings/impression : There is no evidence of bowel obstruction. No free air. Large volume stool burden throughout the colon. Postsurgical changes of median sternotomy and aortic valve replacement with likely retained epicardial pacing wire. Likely splenic artery calcifications. Postsurgical changes of cholecystectomy and hernia mesh placement overlying the pelvis. No acute osseous abnormality. Dictated by Sawyer Rojas MD @ 03/07/2024 4:01:47 PM (Electronically Signed)
--- OUTSIDE RECORDS SUMMARY | 2024-03-07 14:52 | XMS_ITS | Referral Summary ---
Author Organization [facility] Address [address] [place] [address] Care Team Providers Care Document Control Assistant Name Role Phone Unavailable Primary Care Provider Unavailabl e Source Comments Patient records contain information from all sites at [facility]. For routine questions regarding patient records, call [phone] during business hours, M-F 8:00 AM - 5:00 PM Central Time. Record requests for emergency care only can be directed to [phone] at any time.[facility] Allergies Active Allergy Reactions Criticality Noted Date Comments [place] Cough 03/13/2023 Mold Cough 03/13/2023 Medications Medication [...] your living situation today? I have a [facility] place to live 03/15/2023 Sex and [...] on file Medical Devices Implanted Type Area Fork Truck Operator Device Identifier Shelf Expiration Date Model / [...]
--- OUTSIDE RECORDS SUMMARY | 2024-03-07 14:52 | XMS_ITS | Data Portability ---
Author Organization [place] [facility] Address [address] [place] [address] Care Team Providers Care Retail Advertising Sales Manager Name Role Phone SANTA MACIAS Primary Care [...] 50 mg tablet 2021 022 [facility] [id number] [employer], [facility] [address] [place], [address], 17:57:10 Patient TargetsNo targets recorded. Patient Instructions Encounter Date Encounter Id Patient Instructions Last Modified By Organization Details Last Modified Time 01/08/2022 [id number] 45 minute discussion Not available 01/08/2022 18:30:23 Reason for Referral None Reported. Results Created Date Observation Date Name Description Value Unit Range Abnormal Flag LastModifiedBy Organization Detail LastModifiedTime 12/24/1912/18/2021 imagi ng/di agnos tic resul t No observ ation record ed. Not Available 12/23/2021 08:02:52 01/07/20 22 12/31/2021 [...] Biopsy Procedure completed Stone He MD [address] [facility],[address], [place], [address], [facility] 12/18/2021 09:52:48 10/05/19 21 replacement of aortic valve completed Radha castrejon [facility] 12/18/2021 09:08:57 11/03/19 15 Colonoscopy completed Radha castrejon [facility] 12/18/2021 09:09:36 06/08/20 10 Cholecystectomy completed Radha castrejon [facility] 12/18/2021 09:09:51 Imaging Results Imaging Date Name Status LastModified by Organiz ation Details LastModified Time 12/18/2021 imaging/diagn ostic result completed [email or web address] Information not available 12/23/2021 08:02:52 12/31/2021 NM, [...] Updated DateTime 12/18/2021 180.34 cm 27.9 kg/m2 57583.47 g Radha WEBER - [facility] 12/18/2021 09:26:32 Date Recorded Body height Body mass index (BMI) Body weight Provider Name and Address Organization Details Last Updated DateTime 01/08/2022 180.34 cm 27.9 kg/m2 72470.47 g Stone He MD [address] [place] [address],[address], [place], [address], [place] [facility] 01/08/2022 17:05:32 Social History Question Answer Notes LastModified by Organizat ion Details LastModified Time Tobacco Smoking Status Former Smoker quit 1989 Radha Johnstonoza TIA castrejon - [facility] 12/18/2021 09:10:26 When Did You Quit Smoking? 15+yearssin ariane kyle [email or web address] Information not available 12/18/2021 What Was The [...] Encounter Closed Date Diagnosis/Indication Diagnosis SNOMED-CT Code [id number] MD WENDY Frances_[facility] [address] [place] [id number] 12/18/2021 09:01:42 12/20/2021 16:04:23 Prostate specific antigen above reference range [id number] MD WENDY Frances_[facility] [address] [place] [address] 01/08/2022 16:46:59 01/13/2022 08:58:44 Carcinoma of prostate [id number] Health Concerns Section Related Observation LastModified by Organization Detai ls LastModified Time None Recorded Concern Status LastModified by Organization Details LastModified Time None Recorded Advance Directives Directive None Recorded Payers Encounter Date Sequence Insurance Name Policy Number Policy Cifuentes Covered Member ID Cifuentes Member ID Guarantor Name 12/18/2021 1 [facility] (MEDICARE REPLACEMENT/A DVANTAGE - PPO) [id number] Faizan Simon [id number] Faizan Simon 01/08/2022 1 [facility] (MEDICARE REPLACEMENT/A DVANTAGE - PPO) [id number] Faizan Simon [id number] Faizan Simon Notes Date Note Type Note [...] (10/20/12) - 1.76 (09/24/11) Stone He MD [address] [place] [address],[address], [address], [facility] - [facility] 12/18/2021 09:54:07 01/08/2022 text/html HPI Notes: [...] - + Prostate cancer - cT2c - [place] 4+4 = 8 - [place] 4+4 = 8 - Left apex/mid/base, Right base - (100%) - no perineural invasion - [place] 3+4 = 7 - Right apex (10%) - no perineural invasion - [place] 3+3 = 6 - Right mid (60%) [...] skeletal metastatic disease Stone He MD [address] [facility],[address], [place], [address], [facility] 01/08/2022 18:34:33
--- OUTSIDE RECORDS SUMMARY | 2024-03-07 14:52 | XMS_ITS | Clinical Summary ---
Author Organization [employer] [facility] [employer] [facility] Address [place], [place] [address] Care Team Providers Care Manager Line Name Role Phone Stone He MD Unavailable [phone] Jacquelyn Fleming Primary Care Provider Edgar Meier MD Unavailable Luis Perdomo MD Unavailable Allergies Active Allergy [...] type, unspecified whether angina present, unspecified whether squaxin or transplanted heart TAKE 1 TABLET BY [...] Description 01/20/2024 1:00 PM CDT Office Visit [facility] [address] [place] [address] Jacquelyn Fleming PA ER Follow up (Back pain, pain radiates down L buttock and leg) 01/20/2024 Travel 01/10/2024 Orders Only [facility] Scanner 1 scan: (1-Ord) NE, LUMBAR , 01/10/2024 12/29/2023 Refill [facility] [address] [place] [address] Jacquelyn Fleming PA Refill Request (Prednisone) 12/14/2023 9:30 AM CDT Office Visit [facility] [address] [place] [address] Jacquelyn Fleming PA Medicare ANNUAL (subsequent) Visit (73 years old) 12/14/2023 Travel from Last 3 Months Immunizations Name Administration Dates Next Due Amb Influenza, Inact (High-d ose) (Flu Clinic Only) 07/11/2016 COVID-19 vaccine (Moderna 50mcg/0.5mL) 12YO+ BIVALENT PF, MDV 06/27/2022 COVID-19 vaccine ([employer] 30mcg/0.3mL) PF, MDV 11/20/2020,10/30/2020 Influenza, High-dose [...] T Respiratory Rate 16 10/08/2023 8:33 AM HOSPITAL CNA Oxygen Saturation 96% 01/20/2024 1:01 PM CDT Inhaled Oxygen Concentration - - Weight 93.4 kg (206 lb) 01/20/2024 1:01 PM CDT Height 175.3 cm (5' 9) 12/14/2023 9:31 AM CDT Body Mass Index 30.42 12/14/2023 9:31 AM CDT Plan of Treatment Upcoming Encounters Date Type Department Care Team (Late st Contact Info) Description 04/07/2024 11:00 AM CDT Office Visit [facility] [address] [place] [address] Luis Perdomo MD [address] [facility] [address] [place] [address] Health Maintenance Due Date Last Done Comments Zoster (shingles) series for age 50+ (1 of 2) 08/29/2013 07/04/2013 COVID-19 vaccine series (2022- season) 2023 08/10/2023, 06/27/2022, 07/16/2021, Additional history [...] Completed 12/31/2021 Medical Devices Implanted Type Area Citrus Picker Device Identifier Shelf Expiration Date Model / Serial / Lot Valve Aortic 27mm Inspirus Resilia Tissue - [id number] Implanted:Qty: 1 on 10/05/2020 by Darshan Cavanaugh MD at [facility] N/A: Aortic Valve Abakan 05/03/2024 [id number] / [id number] / Description:No rinse needed per loading dock hand Procedures Procedure Name Priority Date/Time Associated Diagnosis Comments SCAN-CT INTERPRETATION 12:00 AM CDT LIPID PANEL W REFLEX MEASURED LDL Routine 12/14/2023 10:26 AM CDT Coronary artery disease, unspecified vessel or lesion type, unspecified whether angina present, unspecified whether squaxin or transplanted heart BASIC METABOLIC PANEL Routine [...] - 199 mg/dL 12/14/2023 7:17 PM CDT [facility] Comment: Cholesterol, Total Reference Ranges Desirable <200 mg/dL Borderline 200-239 mg/dL High >=240 mg/dL TRIGLYCERIDES 101 <150 mg/dL 12/14/2023 7:17 PM CDT [facility] HDL CHOLESTEROL 57 >40 mg/dL 7:17 PM CDT [facility] NON-HDL CHOLESTEROL 101 <145 mg/dl 12/14/2023 7:17 PM CDT [facility] CHOL/HDL RATIO 2.77 <4.50 12/14/2023 7:17 PM CDT [facility] LDL CHOLESTEROL 81 <=130 mg/dL 12/14/2023 7:17 PM CDT [facility] VLDL CHOLESTEROL 20 <=30 mg/dL 12/14/2023 7:17 PM CDT [facility] PROVIDER ORDERED STATUS RANDOM 12/14/2023 7:17 PM CDT [facility] Blood BLOOD SPECIMEN / Unknown Venipuncture / Unknown 12/14/2023 10:26 AM CDT 12/14/2023 10:26 AM CDT Jacquelyn RICE CHEMISTRY [facility] [address] [place] [address], * (ABNORMAL) BASIC METABOLIC PANEL (12/14/2023 10:26 AM CDT) SODIUM 136 136 - 145 mmol/L 12/14/2023 7:17 PM CDT [facility] POTASSIUM 4.5 3.5 - 5.1 mmol/L 12/14/2023 7:17 PM CDT [facility] CHLORIDE 99 98 - 107 mmol/L 12/14/2023 7:17 PM T [facility] CO2,TOTAL 28 22 - 29 mmol/L 12/14/2023 7:17 PM T [facility] ANION GAP 9 5 - 18 12/14/2023 7:17 PM T [facility] GLUCOSE 117(H) 70 - 99 mg/dL 12/14/2023 7:17 PM T [facility] CALCIUM 9.5 8.8 - 10.2 mg/dL 12/14/2023 7:17 PM T [facility] BUN 19 8 - 23 mg/dL 12/14/2023 7:17 PM T [facility] CREATININE 1.00 0.70 - 1.20 mg/dL 12/14/2023 7:17 PM [facility] BUN/CREAT RATIO 19 10 - 20 7:17 PM T [facility] eGFR 79(L) >90 mL/min/1.7 3m2 12/14/2023 7:17 PM T [facility] Comment:As of 2021, eG FR is calculated by the CKD-EPI creatinine equation without race adjustment. ??eGFR can be influenced by muscle mass, exercise, and diet. ??The reported eGFR is an estimation only and is only applicable if the renal function is stable. Blood BLOOD SPECIMEN / Unknown Venipuncture / Unknown 12/14/2023 10:26 AM CDT 12/14/2023 10:26 AM CDT Jacquelyn RICE CHEMISTRY [facility] [address] [place] [address], [place] * COLONOSCOPY SCREENING [[id number]] (02/09/2023 12:00 AM CDT) Jacquelyn RICE GI PROCEDURE OR D * CT ABDOMEN PELVIS WO (12/31/2021 1:11 PM CDT) Anatomical Region Laterality Modality Abdomen, Pelvis, AORTA, LIVER, SPLEEN Computed Tomography 12/31/2021 2:49 PM CDT Narrative 12/31/2021 2:49 PM CDT For Patients: ??As a result of the Cures Act, medical imaging exams and procedure [...] guero Non-React guero 12/02/2021 5:53 PM CDT [facility] Comment:Antibodies to HCV no t detected; does not exclude the possibility of exposure to HCV. Blood BLOOD SPECIMEN / Unknown Venipuncture / Unknown 12/02/2021 8:17 AM CDT 12/02/2021 8:18 AM CDT Jacquelyn RICE SEND OUTS [facility] [address] [place] [address], from Last 3 Months or Most Recently Relevant to Health Maintenance Advance Directives * Full Code (Latest Code Status on File) Date Activated Date Inactivated Comments 10/05/2020 6:34 AM 10/10/2020 2:00 PM preop Question Answer Comments Code Status Discussion: Other (specify in commen ts): Care Teams Manager Line Relationship Specialty Start Date End Date Jacquelyn Fleming PA [address] [place] [address] PCP - General Physician Commercial Attorney 07/25/22 Stone He MD [address] [place] [address] Surgery - Urology 07/25/22 Edgar Meier MD [address] [place] [address] Internal Medicine 07/25/22 [place] [address] [place] [address] Pulmonology Pulmonary Medicine 10/08/23
--- OUTSIDE RECORDS SUMMARY | 2024-03-07 14:52 | XMS_ITS ---
Author Organization [facility] Address [address] [place] [address] Care Team Providers Care Railroad Brake Operator Name Role Phone Unavailable Unavailable Unavailable Surgery Details Not on file Complications Check Surgery Details section. Procedure Estimated Blood Loss Check Surgery Details section. Procedure Findings Check Surgery Details section. Procedure Specimens Taken Check Surgery Details section.
--- OUTSIDE RECORDS SUMMARY | 2024-03-07 14:52 | XMS_ITS | Clinical Summary ---
Author Organization [facility] Address [address] [place] [address] Care Team Providers Care Rheumatologist Name Role Phone Unavailable Primary Care Provider Unavailabl e Source Comments Patient records contain information from all sites at [facility]. For routine questions regarding patient records, call [phone] during business hours, M-F 8:00 AM - 5:00 PM Central Time. Record requests for emergency care only can be directed to [phone] at any time.[facility] Allergies Active Allergy Reactions Criticality Noted Date Comments [place] Cough 03/13/2023 Mold Cough 03/13/2023 Medications Medication [...] your living situation today? I have a [facility] place to live 03/15/2023 Sex [...] this topic Medical Devices Implanted Type Area Test Rider Device Identifier Shelf Expiration Date Model / [...]
--- OUTSIDE RECORDS SUMMARY | 2024-03-07 14:52 | XMS_ITS ---
Author Organization [facility] Address [address] [place] [address] Care Team Providers Care Bobbin Cleaning Machine Operator Name Role Phone Unavailable Primary Care Provider [...] Treated Prescribed Fraction Dose Prescribed Total Dose [id number] 03/18/2022 36 26 of 26 270 cGy 7,020 cGy Reference Point Last Treated On Elapsed Days Session Dose Total Dose [id number] 03/18/2022 36 270 cGy 7,020 cGy
[2024-03-07 16:21] VITALS: BP 128/104; PULSE 91; RESP 22; O2SAT 92
== END 2024-03-07 17:13 | disposition home or self-care (01) ==
PROVIDERS: Emergency Provider Family Medicine; PCP Physician Assistant Medical
DX: K59.00 Constipation, unspecified (principal)
CPT/HCPCS: 74019; 99283; 99284

== ENCOUNTER 2024-04-20 08:30 | Outpatient (RCR) | payer MEDICARE, SELFPAY ==
[2023-11-04 11:11] LABS: PSA Diagnostic* < 0.06 ng/mL (0.10-4.00)
[2024-01-20 14:40] LABS: Basophils Absolute Auto 0.02 K/uL (0.00-0.30); Basophils Percent Auto 0.2 % (0.0-3.0); Eosinophils Percent Auto 1.1 % (0.0-7.0); Hemoglobin* 14.4 gm/dL (13.5-17.5); Immature Granulocytes Abs Auto 0.13 K/uL (0.00-0.30); Immature Granulocytes Pct Auto 1.4 %; Lymphocytes Percent Auto 6.4 % (20-44); Mean Corpuscular HGB Conc 34 gm/dL (32-36); Mean Corpuscular Hemoglobin 31 pg (26-34); Mean Corpuscular Volume 93 fL (80-100); Monocytes Percent Auto 5.4 % (0.0-11.0); Neutrophils Percent Auto 85.5 % (42.0-72.0); Platelet Count* 200 K/uL (140-440); RDW Coefficient of Variation % 12.5 % (11.5-15.5); Red Blood Count 4.61 m/uL (4.30-5.90); White Blood Count* 9.44 K/uL (4.50-11.00)
[2024-01-20 14:44] LABS: Slide Review Reflex No
[2024-01-20 14:54] LABS: Albumin* 4.2 g/dL (3.3-5.0)
[2024-01-20 14:55] LABS: Chloride* 103 mmol/L (96-114); Potassium* 4.4 mmol/L (3.6-5.1); Sodium* 136 mmol/L (135-149)
[2024-01-20 14:57] LABS: Anion Gap 2 mEq/L (7-15); Aspartate Amino Transferase* 26 U/L (12-35); Bilirubin Total* 0.6 mg/dL (0.1-1.5); Carbon Dioxide* 31 mmol/L (20-32); Creatinine* 0.8 mg/dL (0.5-1.5); Est. Creatinine Clearance* 60.59; Estimated Glomerular Filt Rate 93 ml/min
[2024-01-20 14:58] LABS: Alanine Aminotransferase* 14 U/L (4-50); Alkaline Phosphatase* 98 U/L (40-150); Blood Urea Nitrogen* 19 mg/dL (7-30); Calcium* 9.3 mg/dL (8.4-10.6); Glucose* 111 mg/dL (60-115); Total Protein* 7.6 g/dL (6.0-8.3)
[2024-01-20 15:32] LABS: PSA Diagnostic* < 0.06 ng/mL (0.10-4.00)
[2024-04-19 08:39] LABS: Basophils Absolute Auto 0.07 K/uL (0.00-0.30); Basophils Percent Auto 0.7 % (0.0-3.0); Eosinophils Percent Auto 8.6 % (0.0-7.0); Hematocrit 40.1 % (37.0-53.0); Hemoglobin* 13.7 gm/dL (13.5-17.5); Immature Granulocytes Abs Auto 0.04 K/uL (0.00-0.30); Immature Granulocytes Pct Auto 0.4 %; Lymphocytes Percent Auto 12.3 % (20-44); Mean Corpuscular HGB Conc 34 gm/dL (32-36); Mean Corpuscular Hemoglobin 31 pg (26-34); Mean Corpuscular Volume 91 fL (80-100); Monocytes Percent Auto 11.9 % (0.0-11.0); Neutrophils Absolute Auto 6.53 K/uL (1.7-7.0); Neutrophils Percent Auto 66.1 % (42.0-72.0); Platelet Count* 167 K/uL (140-440); RDW Coefficient of Variation % 11.8 % (11.5-15.5); Red Blood Count 4.42 m/uL (4.30-5.90); White Blood Count* 9.89 K/uL (4.50-11.00)
[2024-04-19 08:44] LABS: Slide Review Reflex No
[2024-04-19 08:55] LABS: Albumin* 4.1 g/dL (3.3-5.0); Chloride* 102 mmol/L (96-114); Sodium* 137 mmol/L (135-149)
[2024-04-19 08:57] LABS: Bilirubin Total* 0.8 mg/dL (0.1-1.5); Creatinine* 0.8 mg/dL (0.5-1.5); Est. Creatinine Clearance* 60.59; Estimated Glomerular Filt Rate 93 ml/min
[2024-04-19 08:58] LABS: Alanine Aminotransferase* 16 U/L (4-50); Alkaline Phosphatase* 127 U/L (40-150); Anion Gap 8 mEq/L (7-15); Aspartate Amino Transferase* 28 U/L (12-35); Blood Urea Nitrogen* 23 mg/dL (7-30); Calcium* 9.7 mg/dL (8.4-10.6); Carbon Dioxide* 27 mmol/L (20-32); Glucose* 95 mg/dL (60-115); Total Protein* 7.1 g/dL (6.0-8.3)
[2024-04-19 09:29] LABS: PSA Diagnostic* < 0.06 ng/mL (0.10-4.00)
--- NOTE | 2024-04-20 16:18 | ONC.NURNOTE ---
Addendum entered by Rebecca Albright RN 05/03/24 10:10: appeal denied- veozah only FDA approved for menopausal symptoms in women, not for flushing symptoms related to cancer treatment in men Addendum entered by Rebecca Albright RN 04/22/24 14:23: PA denied Appeal done with [facility] 7 days for review Original Note: PA initiated via [employer] phone# [phone] Ref # [id number]
== END 2024-05-07 23:59 | disposition home or self-care (01) ==
LOC: CCIC 08:30
PROVIDERS: Physician Assistant; PCP Physician Assistant Medical; Referring Provider Physician Assistant Medical; Visit Provider Internal Medicine Hematology & Oncology
DX: C61 Malignant neoplasm of prostate (principal); R23.2 Flushing; M54.50 Low back pain, unspecified; I49.8 Other specified cardiac arrhythmias; J84.10 Pulmonary fibrosis, unspecified; J67.0 Farmer's lung
CPT/HCPCS: 36415; 80053; 84153; 85025; 96401; 99214; 99215; G0463; J9217

== ENCOUNTER 2024-08-17 15:09 | Emergency (ER) | payer MEDICARE, SELFPAY ==
--- OUTSIDE RECORDS SUMMARY | 2024-08-17 15:11 | XMS_ITS | Data Portability ---
Author Organization [place] [facility] [place] [facility], [facility] Address [address] [place] [address] Care Team Providers Care Specification Writer Name Role Phone SANTA MACIAS Primary Care Provider [phone] Assessment No assessment recorded. Plan of Treatment Reminders Order Date Submit Date Provider Last Modified By Organization Details Last Modified Time Details Appointments None recorded. Lab None recorded. Referral None recorded. Procedures None recorded. Surgeries None recorded. Imaging None recorded. Medication Orders ceftriaxone 1 gram solution for injection 2021 022 [email or web address] [id number] Not available 09:26:08 Casodex 50 mg tablet 2021 022 [facility] [address] [employer], [facility] [address] [place], [address], 17:57:10 Patient TargetsNo targets recorded. Patient Instructions Encounter Date Encounter Id Patient Instructions Last Modified By Organization Details Last Modified Time 01/08/2022 [id number] 45 minute discussion Not available 01/08/2022 18:30:23 Reason for Referral None Reported. Results Created Date Observation Date Name Description Value Unit Range Abnormal Flag Note LastModifiedBy Organization Detail LastModifiedTime 12/24/1912/18/2021 imagi ng/di agnos tic resul t No observ ation record ed. [email or web address] Not Available 09/2021 08:02:52 01/07/20 22 12/31/2021 NM, bone scan, whole body No observ ation record ed. Not Available 2021 14:33:22 01/07/20 22 12/31/2021 CT, abdom en + pelvi s, w/o contr ast No observ ation record ed. Not Available 2021 14:34:11 Result Notes None recorded. Procedures Surgical History Date Name Laterality Status Provider Name and Address Organization Details Recorded Time 12/19/19 22 Prostate Biopsy Procedure completed Stone He MD [address] [facility],[address], [place], [address], [facility] 12/18/2021 09:52:48 10/05/19 21 replacement of aortic valve completed [place] [facility] 12/18/2021 09:08:57 11/03/19 15 Colonoscopy completed Radhasalena Childress [facility] 12/18/2021 09:09:36 06/08/20 10 Cholecystectomy completed [facility] 12/18/2021 09:09:51 Imaging Results Imaging Date Name Status LastModified by Organiz ation Details LastModified Time 12/18/2021 imaging/diagn ostic result completed [email or web address] Information not available 12/23/2021 08:02:52 12/31/2021 NM, [...] Updated DateTime 12/18/2021 180.34 cm 27.9 kg/m2 80056.47 g Radha Childress [place] [facility] [place] [facility] 12/18/2021 09:26:32 Date Recorded Body height Body mass index (BMI) Body weight Provider Name and Address Organization Details Last Updated DateTime 01/08/2022 180.34 cm 27.9 kg/m2 98738.47 g Stone He MD [address] [place] [address],[address], [place], [address], [place] [facility] 01/08/2022 17:05:32 Social History Question Answer Notes LastModified by Organizat ion Details LastModified Time Tobacco Smoking Status Former Smoker quit 1989 Radha Childress [facility] 12/18/2021 09:10:26 When Did You Quit Smoking? 15+yearssin ariane kyle [email or web address] Information not available 12/18/2021 What Was The Date Of Your Most Recent Tobacco Screening? 01/08/2022 Information not available 01/08/2022 Sex: Unknown Functional Status None recorded. Mental Status None recorded. Family History Relationship Description Onset Age of this Age Resolved Age Notes LastModified by Organization Details LastModified Time Father Family history of malignant neoplasm of prostate [email or web address] Not available 11/23 09:10:56 Medical History Condition Response Other Y Cancer Y Past Encounters Encounter ID Performer Location Encounter Start Date Encounter Closed Date Diagnosis/Indication Diagnosis SNOMED-CT Code Diagnosis ICD10 Code [id number] MD WENDY [facility] [address] [place] [address] 12/18/2021 09:01:42 12/20/2021 16:04:23 Prostate specific antigen above reference range 211950331 R97.20 [id number] Stone He MD [facility] [address] [place] [address] 01/08/2022 16:46:59 01/13/2022 08:58:44 Carcinoma of prostate 233944608 C61 Health Concerns Section Related Observation LastModified by Organization Detai ls LastModified Time None Recorded Concern Status LastModified by Organization Details LastModified Time None Recorded Advance Directives Directive None Recorded Payers Encounter Date Sequence Insurance Name Policy Number Policy Cifuentes Covered Member ID Cifuentes Member ID Guarantor Name 12/18/2021 1 [facility] (MEDICARE REPLACEMENT/A DVANTAGE - PPO) [id number] Faizan Simon [id number] Faizan Simon 01/08/2022 1 [facility] (MEDICARE REPLACEMENT/A DVANTAGE - PPO) [id number] Faizan Simon [id number] Faizan Simon Notes Date Note Type Note Provider Name and Address Organization Details Recorded Time 12/18/2021 text/html 71 yo male noted to have an elevated PSA. + Family Hx of prostate cancer - father and uncles. He voids every 2-3 hours during the day and 1x/night. He denies hesitancy, slow stream, urgency, or dysuria. He denies UTIs or prostatitis. - He presents for TRUS/Bx for elevate PSA and nodule at Left base. He reports no change in urination. _PSA - 52.29 (12/02/21)- 3.96 (10/20/14)- 1.89 (10/20/12)- 1.76 (09/24/11) Stone He MD [address] [place] [address],[facility] [address], [address], [facility] [place] [facility] 12/18/2021 09:54:07 01/08/2022 text/html 71 yo male diagnosed with Prostate cancer - cT2c - [place] 4+4 = 8 - history of elevated PSA. + Family Hx of prostate cancer - father and uncles. He voids every 2-3 hours during the day and 1x/night. He denies hesitancy, slow stream, urgency, or dysuria. He denies UTIs or prostatitis.TRUS bx (12/18/21) - 53.7 gm - + Prostate cancer - cT2c - [place] 4+4 = 8- [place] 4+4 = 8 - Left apex/mid/base, Right base - (100%) - no perineural invasion- [place] 3+4 = 7 - Right apex (10%) - no perineural invasion- [place] 3+3 = 6 - Right mid (60%) - no perineural invasion 01/08/22 - He presents for prostate cancer counseling. He voids every 2-3 hours during the day and 1-2x/night. He denies hesitancy, slow stream, urgency, or dysuria. P SA - 52.29 (12/02/21)- 3.96 (10/20/14)- 1.89 (10/20/12)- 1.76 (09/24/11) CT scan (12/31/21) - no evidence of metastatic disease - no enlarged lymph nodesBone scan (12/31/21) - no evidence for skeletal metastatic disease Stone He MD [address] [place] [address],[facility] [address], [place], [address], [facility] 01/08/2022 18:34:33
[2024-08-17 16:10] VITALS: BP 120/74; PULSE 69; RESP 32; TEMP 36.1; O2SAT 92; BMI 30.3
--- NOTE | 2024-08-17 16:15 | CRLHL7_ITS ---
For Patients: As a result of the Century Cures Act, medical imaging exams and procedure reports are released immediately into your electronic medical record. You may view this report before your referring provider. If you have questions, please contact your health care provider. HISTORY: Shortness of breath. Cough. History of COPD and prostate cancer. TECHNIQUE: Two views of the chest. COMPARISON: 11/04/2023. FINDINGS: Sternotomy and aortic replacement. Stable heart size. There are chronic interstitial opacities compatible with fibrosis. Bronchiectasis is present. No definite new infiltrate. No pneumothorax or pleural effusion. There are degenerative changes spine. There is anterior wedging of a thoracolumbar junction region vertebral body which appears new. IMPRESSION: 1. Chronic interstitial opacities compatible with fibrosis with bronchiectasis present. 2. No definite new infiltrate. 3. Mild anterior wedging of a thoracolumbar junction vertebral body which appears new (but not necessarily acute). Dictated by Lee Petersen MD @ 08/17/2024 5:08:09 PM Dictated by: Lee Petersen MD @ 08/17/2024 17:08:14 (Electronically Signed)
--- NOTE | 2024-08-17 16:47 | ED_ITS ---
HPI - SOB/Dyspnea General Date Seen: 08/17/24 Chief Complaint: Cough Stated Complaint: Possible pneumonia Time Seen by Provider: 08/17/24 16:16 Source: patient and family Mode of arrival: ambulatory Limitations: no limitations History of Present Illness HPI Narrative: Patient is a very nice 74-year-old gentleman who presents here with his for a history of cough and shortness of breath for the last 7 days, he has been on prednisone for the last 3 days. As this was been started by his primary care physician he has not been on any antibiotics. He does have a history of COPD, and also pulmonary fibrosis. He also has a history of a asthma. He has been using his inhalers 3 times a day with supplementing in between, he says the worse is when he is at night time and he has to lay back in he says he just coughs up phlegm all night long. He they were trying to get in to see primary care but no one would see them over the past 2-3 days. Fortunately he has had no fevers or chills, he is eating and drinking otherwise normally feels a little bit fatigued. No other family members are currently sick. Immunizations are full and up-to-date. He does not have any hemoptysis. No leg swelling. MD elicited complaint: shortness of breath and cough Pertinent past history: COPD and pneumonia Context: recent illness and occurred during exertion Severity: moderate Exacerbating factors: lying flat, movement and talking Relieving factors: rest, bronchodilators and upright position Known history of: COPD, asthma and recurrent pneumonia Associated symptoms: denies other symptoms and sputum production Treatment prior to arrival: none Related Data Home oxygen amount: none Home Medications ?Medication ?Instructions ?Recorded ?Confirmed metoprolol tartrate 25 mg tablet 25 mg PO BID 04/07/22 07/27/24 multivitamin 1 tab PO QAM 04/07/22 07/27/24 albuterol sulfate 90 mcg/actuation 2 puff inhalation Q4H PRN wheezing 11/04/23 07/27/24 aerosol inhaler (Ventolin HFA) aspirin 81 mg tablet,delayed 81 mg PO DAILY 11/04/23 07/27/24 release (Adult Low Dose Aspirin) calcium 600 mg (as 1 tab PO BID 11/04/23 07/27/24 carbonate)-vitamin D3 10 mcg (400 unit) tablet ipratropium 0.5 mg-albuterol 3 mg 3 ml inhalation QID PRN dyspnea 11/04/23 07/27/24 (2.5 mg base)/3 mL nebulization soln rosuvastatin 20 mg tablet 20 mg PO HS 11/04/23 07/27/24 umeclidinium 62.5 mcg-vilanterol 1 inh inhalation DAILY 11/04/23 07/27/24 25 mcg/actuation powdr for inhalation (Anoro Ellipta) acetaminophen 500 mg tablet 1,000 mg PO TID PRN 11/09/23 07/27/24 nabumetone 500 mg tablet 500 mg PO BID 04/20/24 07/27/24 Previous Rx's ?Medication ?Instructions ?Recorded fluticasone propionate 50 2 spray intranasal DAILY #16 grams 01/10/24 mcg/actuation nasal spray,suspension (Flonase Allergy Relief) gabapentin 300 mg capsule 300 mg PO QHS #60 caps 05/04/24 Allergies Allergy/AdvReac Type Severity Reaction Status Date / Time oxybutynin AdvReac Mild Verified 07/27/24 10:10 Review of Systems Status of ROS: Reports: 10 or more systems reviewed and unremarkable except as noted in History and below [facility] Medical History English's lung ?J67.0 - English's lung (ICD-10) Pulmonary infection ?J18.9 - Pneumonia, unspecified organism (ICD-10) Primary malignant neoplasm of prostate ?C61 - Malignant neoplasm of prostate (ICD-10) Bicuspid aortic valve ?Q23.1 - Congenital insufficiency of aortic valve (ICD-10) Chronic obstructive pulmonary disease (COPD) ?J44.9 - Chronic obstructive pulmonary disease, unspecified (ICD-10) Asthma ?J45.909 - Unspecified asthma, uncomplicated (ICD-10) Surgical wound dehiscence ?T81.31XA - Disruption of external operation (surgical) wound, not elsewhere classified, initial encounter (ICD-10) Thoracic aortic ectasia ?I77.810 - Thoracic aortic ectasia (ICD-10) Colon polyp ?K63.5 - Polyp of colon (ICD-10) Essential hypertension ?I10 - Essential (primary) hypertension (ICD-10) Pulmonary fibrosis ?J84.10 - Pulmonary fibrosis, unspecified (ICD-10) [place] lung ?J67.0 - English's lung (ICD-10) Adenocarcinoma of prostate (~11/2021) ?C61 - Malignant neoplasm of prostate (ICD-10) Surgical History H/O aortic valve replacement with tissue graft ?Z95.4 - Presence of other heart-valve replacement (ICD-10) Hx laparoscopic cholecystectomy ?Z90.49 - Acquired absence of other specified parts of digestive tract (ICD- 10) History of incisional hernia repair (~2010) ?Z98.890 - Other specified postprocedural states (ICD-10) ?Z87.19 - Personal history of other diseases of the digestive system (ICD-10) H/O aortic valve replacement (~09/2020) ?Z95.2 - Presence of prosthetic heart valve (ICD-10) Family History Brother Alcohol use disorder Brain aneurysm Diabetes Father Prostate cancer Diabetes Heart disease Sister Diabetes Social History What is your current living situation?: I presently have a place to live Problems where you live: no known problems Problems where you live details: none In the past 12 months, utilities in danger of being shut off: no In past 12 months, lack of transportation kept you from medical appts, meetings, work, or getting things needed for daily living: no In the past 12 mos, have been you worried that your food would run out before you had money to buy more?: never true In the past 12 mos, the food you bought just didn't last and you didn't have money to buy more?: never true Smoking Status: Former smoker Do you use any of these nicotine containing products: None Second hand tobacco smoke exposure: No How often do you have a drink containing alcohol: never How often do you have six or more drinks on one occasion: Never AUDIT-C Alcohol total score: 0 Non-prescribed substance use: denies use How often does anyone, including family, friends and others, physically hurt you : never How often does anyone, including family, friends and others, insult or talk down to you: never How often does anyone, including family, friends and others, threaten you with harm: never How often does anyone, including family, friends and others, scream or curse at you: never service: Yes Exam Narrative: Exam Narrative: On examination patient is in no apparent distress sitting in room 6. He is not coughing at all and speaking to him about once I get him to take deep breaths and he starts coughing. Coughing up clear sputum. Speaking to me in full sentences. Pupils equal round reactive to light his TMs are normal oropharynx is normal. He does have expiratory wheezes in all lung villa. I do not hear any crackles. No signs respiratory distress. Heart sounds are distant faint but S1-S2 is normal. There is no S3-S4 clicks murmurs or gallops abdomen is soft and obese there is no guarding no organomegaly low legs bilaterally sutton no pitting edema no swelling. Moves all extremities independently well is neurologically intact, there is no evidence of any rashes. Const: Vital Signs, click to edit/add: Vital Signs - 24 hr 08/17/24 16:10 Temperature 96.9 F L Pulse Rate [Pulse Oximeter] 69 Respiratory Rate 32 H Blood Pressure [Ri ght Upper Arm] 120/74 Pulse Oximetry 92 Oxygen Delivery Me thod Room Air Documenting provider has reviewed patient's vital signs: yes Course Course ED Course: Patient did well we gave him 1 nebulize neb of DuoNeb, with decrease in his wheezing after I recheck him, he is able to talk with me and inspire without coughing. I think it would be reasonable to put on some antibiotics for this, both amoxicillin and Zithromax were given good coverage of any issues. He does have the fairly severe fibrosis in her could be a pneumonia hiding behind this. This is what he was hoping for. I went over the risks benefits of this, and I would ask him to use some probiotics, come back if he is having worsening signs and symptoms instructed them to buy on O2 saturation monitor. Vital Signs Vital signs: Initial Vital Signs Temperature 96.9 F L 08/17/24 16:10 Temperature Source Temporal Artery Scan 08/17/24 16:10 Pulse Rate 69 08/17/24 16:10 Respiratory Rate 32 H 08/17/24 16:10 Blood Pressure 120/74 08/17/24 16:10 Blood Pressure Mean 89 08/17/24 16:10 Pulse Oximetry 92 08/17/24 16:10 Oxygen Delivery Method Room Air 08/17/24 16:10 Vital Signs Temperature 96.9 F L 08/17/24 16:10 Pulse Rate 69 08/17/24 16:10 Respiratory Rate 32 H 08/17/24 16:10 Blood Pressure 120/74 08/17/24 16:10 Pulse Oximetry 92 08/17/24 16:10 Oxygen Delivery Method Room Air 08/17/24 16:10 Temperature 96.9 F L 08/17/24 16:10 Pulse Rate 69 08/17/24 16:10 Respiratory Rate 32 H 08/17/24 16:10 Blood Pressure 120/74 08/17/24 16:10 Pulse Oximetry 92 08/17/24 16:10 Oxygen Delivery Method Room Air 08/17/24 16:10 Medications Administered Medications: Discontinued Medications Generic Name Dose Route Start Last Admin Trade Name Freq PRN Reason Stop Dose Admin Albuterol/Ipratropium 1 neb 08/17/24 16:46 08/17/24 17:16 Iprat-Albut 0.5-2.5 Mg/3 Ml Neb IH 08/17/24 16:47 1 neb ONCE ONE Administration MDM - SOB/Dyspnea MDM Narrative Medical decision making narrative: Life-threatening differential diagnosis includes occluded COPD exacerbation, pulmonary edema, acute coronary syndromes, pulmonary embolism, pneumonia, and pn eumothorax. Other differential diagnosis considerations include asthma, bronchitis as well as other etiologies I think it would be reasonable here to get a chest x-ray, along with viral studies. I will give him a DuoNeb treatment. This seems to be more bronchospastic in nature as opposed to congestive heart failure or pulmonary embolism. The oxygen saturations are still reasonable at 92% he does not require oxygen. Differential Diagnosis Differential diagnosis: Likely acute exacerbation of chronic obstructive airways disease, congestive heart failure, community acquired pneumonia, asthma with exacerbation and pulmonary embolism Medical Records Attestation: I reviewed the patient's medical records. Lab Data Attestation: I reviewed the patient's lab results. Labs: Lab Results 08/17/24 Range/Units 17:10 SARS-CoV-2 (PCR) Negative SARS-CoV-2 (Negative) Influenza Type A (PCR) Negative PCR FLU A (Negative) Influenza Type B (PCR) Negative PCR FLU B (Negative) RSV (PCR) Negative PCR RSV (Negative) Imaging Data Chest x-ray: Attestation: I have reviewed the pertinent imaging results. My impression: Chronic fibrosis Radiologist's impression: [address] [address] Diagnostic Imaging Report Patient: Faizan Simon MR#: [id number] : 1950 Acct:[id number] Loc: ED Service Date: 08/17/[address]: Ordering Physician: Tex Xiao M.D. Date of Service: 08/17/24 Procedure(s): XR chest 2V Accession Number(s): [id number] cc: Jacquelyn Fleming PA-C; Tex Xiao M.D.~ For Patients: As a result of the Cures Act, medical imaging exams and procedure reports are released immediately into your electronic medical record. You may view this report before your referring provider. If you have questions, please contact your health care provider. HISTORY: Shortness of breath. Cough. History of COPD and prostate cancer. TECHNIQUE: Two views of the chest. COMPARISON: 11/04/2023. FINDINGS: Sternotomy and aortic replacement. Stable heart size. There are chronic interstitial opacities compatible with fibrosis. Bronchiectasis is present. No definite new infiltrate. No pneumothorax or pleural effusion. There are degenerative changes spine. There is anterior wedging of a thoracolumbar junction region vertebral body which appears new. IMPRESSION: 1. Chronic interstitial opacities compatible with fibrosis with bronchiectasis present. 2. No definite new infiltrate. 3. Mild anterior wedging of a thoracolumbar junction vertebral body which appears new (but not necessarily acute). Dictated by Lee Petersen MD @ 08/17/2024 5:08:09 PM Dictated by: Lee Petersen MD @ 08/17/2024 17:08:14 (Electronically Signed) Discharge Plan Discharge Clinical Impression: Chronic obstructive pulmonary disease with acute exacerbation, Pulmonary fibrosis, Asthma Patient Disposition: Home w/ Parent or Adult Condition: Stable Instructions: Pulmonary Fibrosis (ED), How to Use a Metered-Dose Inhaler (DC), COPD (Chronic Obstructive Pulmonary Disease) (ED), COPD (Chronic Obstructive Pulmonary Disease) (DC), How to Use a Nebulizer (ED), Wheezing (ED) Additional Instructions: Home rest use of antibiotics as directed continue her prednisone taper. I would increase your use of your nebulize treatments to 4 times a day. Return if your O2 saturation monitor shows less than 90%. Or you develop chest pain or worsening. Follow-up with primary care in 3-5 days for recheck. Prescriptions: No Action metoprolol tartrate 25 mg tablet 25 mg PO BID multivitamin Tablet 1 tab PO QAM nabumetone 500 mg tablet 500 mg PO BID ipratropium-albuterol 0.5 mg-3 mg(2.5 mg base)/3 mL solution for nebulization 3 ml INHALATION QID PRN (Reason: dyspnea) albuterol sulfate [Ventolin HFA] 90 mcg/actuation HFA aerosol inhaler 2 puff INHALATION Q4H PRN (Reason: wheezing) aspirin [Adult Low Dose Aspirin] 81 mg tablet,delayed release (DR/EC) 81 mg PO DAILY rosuvastatin 20 mg tablet 20 mg PO HS Anoro Ellipta 62.5-25 mcg/actuation blister with device 1 inh INHALATION DAILY calcium carbonate-vitamin D3 600 mg-10 mcg (400 unit) tablet 1 tab PO BID acetaminophen 500 mg tablet 1,000 mg PO TID PRN fluticasone propionate [Flonase Allergy Relief] 50 mcg/actuation spray,suspension 2 spray intranasal DAILY Qty: 16 0RF Rx Instructions: administer into each nostril gabapentin 300 mg capsule 300 mg PO QHS Qty: 60 1RF Follow Up/Referrals: Jacquelyn Fleming PA-C [Primary Care Provider] - Stand Alone Forms: [employer] Info Instructions
[2024-08-17] MEDS: IPRAT-ALBUT 0.5-2.5 MG/3 ML NEB 1 NEB IH (17:16)
[2024-08-17 17:51] LABS: PCR FLU A Negative PCR FLU A (Negative); PCR FLU B Negative PCR FLU B (Negative); PCR RSV Negative PCR RSV (Negative); SARS PCR* Negative SARS-CoV-2 (Negative)
== END 2024-08-17 19:31 | disposition home or self-care (01) ==
PROVIDERS: Emergency Provider Family Medicine; PCP Physician Assistant Medical
DX: J84.10 Pulmonary fibrosis, unspecified (principal); J44.1 Chronic obstructive pulmonary disease with (acute) exacerbation
CPT/HCPCS: 71046; 87631; 99284

== ENCOUNTER 2024-10-28 10:15 | Outpatient (RCR) | payer MEDICARE, SELFPAY ==
--- NOTE | 2024-05-12 15:09 | ONC.NURNOTE ---
Received a phone call from [facility] stating that needed to call regarding spring appeal. They questioned whether this was a male or female, informed that is a male being treated for prostate cancer. Treatment is causing hot flashes. They have this case open ([id number]) and will submit this information.
--- NOTE | 2024-05-19 12:07 | ONC.NURNOTE ---
Regarding Veozah- patient ok to cancel RX with [facility]- he does not want to pay diaz for the RX- FDA indication for menopausal hotflashes for women and therefore PA has been denied as was the appeal. [facility]
[2024-07-26 10:20] LABS: Basophils Percent Auto 0.7 % (0.0-3.0); Eosinophils Percent Auto 8.1 % (0.0-7.0); Hematocrit 43.4 % (37.0-53.0); Immature Granulocytes Pct Auto 0.3 %; Lymphocytes Percent Auto 8.4 % (20-44); Mean Corpuscular HGB Conc 32 gm/dL (32-36); Mean Corpuscular Hemoglobin 31 pg (26-34); Mean Corpuscular Volume 95 fL (80-100); Monocytes Percent Auto 13.5 % (0.0-11.0); Platelet Count* 137 K/uL (140-440); RDW Coefficient of Variation % 12.4 % (11.5-15.5); Red Blood Count 4.59 m/uL (4.30-5.90); White Blood Count* 11.67 K/uL (4.50-11.00)
[2024-07-26 10:35] LABS: Albumin* 3.9 g/dL (3.3-5.0); Chloride* 103 mmol/L (96-114)
[2024-07-26 10:36] LABS: Potassium* 4.5 mmol/L (3.6-5.1); Sodium* 140 mmol/L (135-149)
[2024-07-26 10:37] LABS: Slide Review Reflex No
[2024-07-26 10:38] LABS: Anion Gap 6 mEq/L (7-15); Aspartate Amino Transferase* 23 U/L (12-35); Bilirubin Total* 0.6 mg/dL (0.1-1.5); Carbon Dioxide* 31 mmol/L (20-32); Creatinine* 0.8 mg/dL (0.5-1.5); Estimated Glomerular Filt Rate 92 ml/min
[2024-07-26 10:39] LABS: Alanine Aminotransferase* 17 U/L (4-50); Alkaline Phosphatase* 91 U/L (40-150); Blood Urea Nitrogen* 18 mg/dL (7-30); Calcium* 9.5 mg/dL (8.4-10.6); Glucose* 93 mg/dL (60-115); Total Protein* 6.8 g/dL (6.0-8.3)
[2024-07-26 11:09] LABS: PSA Diagnostic* < 0.06 ng/mL (0.10-4.00)
[2024-10-28 10:09] LABS: Basophils Percent Auto 0.3 % (0.0-3.0); Eosinophils Percent Auto 1.9 % (0.0-7.0); Hematocrit 43.3 % (37.0-53.0); Hemoglobin* 14.2 gm/dL (13.5-17.5); Immature Granulocytes Pct Auto 0.3 %; Lymphocytes Percent Auto 10.2 % (20-44); Mean Corpuscular HGB Conc 33 gm/dL (32-36); Mean Corpuscular Hemoglobin 30 pg (26-34); Mean Corpuscular Volume 92 fL (80-100); Monocytes Percent Auto 10.4 % (0.0-11.0); Neutrophils Percent Auto 76.9 % (42.0-72.0); Platelet Count* 160 K/uL (140-440); RDW Coefficient of Variation % 13.1 % (11.5-15.5); Red Blood Count 4.69 m/uL (4.30-5.90); White Blood Count* 12.88 K/uL (4.50-11.00)
[2024-10-28 10:29] LABS: Albumin* 4.2 g/dL (3.3-5.0); Chloride* 99 mmol/L (96-114); Potassium* 4.6 mmol/L (3.6-5.1); Sodium* 138 mmol/L (135-149)
[2024-10-28 10:31] LABS: Anion Gap 11 mEq/L (7-15); Bilirubin Total* 0.6 mg/dL (0.1-1.5); Blood Urea Nitrogen* 17 mg/dL (7-30); Carbon Dioxide* 28 mmol/L (20-32); Creatinine* 0.8 mg/dL (0.5-1.5); Est. Creatinine Clearance* 47.22; Estimated Glomerular Filt Rate 92 ml/min
[2024-10-28 10:32] LABS: Alanine Aminotransferase* 17 U/L (4-50); Alkaline Phosphatase* 66 U/L (40-150); Aspartate Amino Transferase* 25 U/L (12-35); Calcium* 9.5 mg/dL (8.4-10.6); Glucose* 80 mg/dL (60-115)
[2024-10-28 10:34] LABS: Slide Review Reflex No
[2024-10-28 11:05] LABS: PSA Diagnostic* < 0.06 ng/mL (0.10-4.00)
--- NOTE | 2024-10-31 09:49 | ONC.NURNOTE ---
PSA results reviewed with patient
== END 2025-01-22 23:59 | disposition home or self-care (01) ==
LOC: CCIC 10:15
PROVIDERS: PCP Physician Assistant Medical; Referring Provider Physician Assistant Medical; Visit Provider Internal Medicine Hematology & Oncology
DX: C61 Malignant neoplasm of prostate (principal)
CPT/HCPCS: 36415; 80053; 84153; 85025; 99214; G0463

== ENCOUNTER 2025-01-01 20:16 | Inpatient (IN) | payer MEDICARE, BC, SELFPAY ==
[2025-01-01] VITALS (8 sets, daily range): BP systolic 152–157; BP diastolic 85–96; PULSE 80–99; RESP 17–33; TEMP 36.6; O2SAT 89–93; BMI 29.5; BMI 31.4
--- OUTSIDE RECORDS SUMMARY | 2025-01-01 20:18 | XMS_ITS | Data Portability ---
Author Organization [place] [facility], [facility] Address [address] [place] [address] Care Team Providers Care Spanish Professor Name Role Phone SANTA MACIAS Primary Care Provider Assessment No assessment recorded. Plan of Treatment Reminders Order Date Submit Date Provider Last Modified By Organization Details Last Modified Time Details Appointments None recorded. Lab None recorded. Referral None recorded. Procedures None recorded. Surgeries None recorded. Imaging None recorded. Medication Orders Casodex 50 mg tablet 2021 022 [facility] [address] [facility] [employer], [address], [place], [address], 17:57:10 ceftriaxone 1 gram solution for injection 2021 022 [email or web address] Not available 09:26:08 Patient TargetsNo targets recorded. Patient Instructions Encounter Date Encounter Id Patient Instructions Last Modified By Organization Details Last Modified Time 01/08/2022 [id number] 45 minute discussion Not available 01/08/2022 18:30:23 Reason for Referral None Reported. Results Created Date Observation Date Name Description Value Unit Range Abnormal Flag Note LastModifiedBy Organization Detail LastModifiedTime 12/24/1912/18/2021 imagi ng/di agnos tic resul t No observ ation record ed. [email or web address] Not Available 09/2021 08:02:52 01/07/20 22 12/31/2021 [...] Biopsy Procedure completed Stone He MD [address] [facility], [place], [address], [facility] 12/18/2021 09:52:48 10/05/19 21 replacement of aortic valve completed [facility] 12/18/2021 09:08:57 11/03/19 15 Colonoscopy completed Radhasalena Child[facility] 12/18/2021 09:09:36 06/08/20 10 [facility] 12/18/2021 09:09:51 Imaging Results Imaging Date Name Status LastModified by Organiz ation Details LastModified Time 12/18/2021 imaging/diagn ostic result completed [email or web address] Information not available 12/23/2021 08:02:52 12/31/2021 NM, [...] Updated DateTime 12/18/2021 180.34 cm 27.9 kg/m2 91429.47 g Radha Childress [place] [facility] 12/18/2021 09:26:32 Date Recorded Body height Body mass index (BMI) Body weight Provider Name and Address Organization Details Last Updated DateTime 01/08/2022 180.34 cm 27.9 kg/m2 67990.47 g Stone He MD [address] [place] [address],[address], [place], [address], [place] [facility] 01/08/2022 17:05:32 Social History Question Answer Notes LastModified by Organizat ion Details LastModified Time Tobacco Smoking Status Former Smoker quit 1989 Radha Childress TIA [facility] 12/18/2021 09:10:26 When Did You Quit Smoking? 15+yearssin ariane kyle [email or web address] Information not available 12/18/2021 What Was The Date Of Your Most Recent Tobacco Screening? 01/08/2022 Information not available 01/08/2022 Sex: Unknown Functional Status None recorded. Mental Status None recorded. Family History Relationship Description Onset Age of this Age Resolved Age Notes LastModified by Organization Details LastModified Time Father Family history of malignant neoplasm of prostate [email or web address] Not available 11/23 09:10:56 Medical History Condition Response Other Y Cancer Y Past Encounters Encounter ID Performer Location Encounter Start Date Encounter Closed Date Diagnosis/Indication Diagnosis SNOMED-CT Code Diagnosis ICD10 Code Diagnosis Note [id number] Stone He MD _[facility] [employer] [place] [address] 12/18/2021 09:01:42 12/20/2021 16:04:23 Prostate specific antigen above reference range [id number] R97.20 1. Elevated PSA- nodule at Left base- elevated PSA (52.29)- concerning for Prostate cancer- s/p TRUS bx of the prostate today- complete course of Cipro- will call with bx results when available [id number] MD WENDY [facility] [address] [place] [address] 01/08/2022 16:46:59 01/13/2022 08:58:44 Carcinoma of prostate [id number] C61 1. Prostate cancer - cT2c - Phil 4+4 = 8 - we reviewed the prostate biopsy results, CT scan / Bone scan, and Ashley table data- CT scan and Bone scan (12/31/21) -negative for metastatic disease- treatment options discussed included expectant management , hormonal therapy, cryotherap y, HIFU, radiation (Brachythe rapy and XRT), and surgery (Robot-ass isted laparoscop ic prostatect michele and open Radical retropubic prostatect michele with bilateral pelvic lymph node dissection ). Risks of surgery include bleeding, infection, hernia, rectal injury, urinary incontinen ce, erectile dysfunctio n, and lymphocele formation. - his questions were answered today- recommend EBRT with 1-2 year course of Hormonal therapy- will start Casodex 50 mg daily- recommend 2nd opinions- referrals to Radiation Oncology and Oncology (in [place] ) Health Concerns Section Related Observation LastModified by Organization Detai ls LastModified Time None Recorded Concern Status LastModified by Organization Details LastModified Time None Recorded Advance Directives Directive None Recorded Payers Insurance Date Sequence Insurance Name Policy Number Policy Cifuentes Covered Member ID Cifuentes Member ID Guarantor Name 01/13/2022 1 [facility] (MEDICARE REPLACEMENT/A DVANTAGE - PPO) [id number] Faizan Simon [id number] Faizan Simon Notes Date Note Type Note [...] 1.89 (10/20/12)- 1.76 (09/24/11) Stone He MD [address] [facility],[address], [place], [address], [facility] 12/18/2021 09:54:07 01/08/2022 text/html 71 yo male diagnosed with Prostate cancer - cT2c - [place] 4+4 = 8 - history of elevated PSA. + Family Hx of prostate cancer - father and uncles. He voids every 2-3 hours during the day and 1x/night. He denies hesitancy, slow stream, urgency, or dysuria. He denies UTIs or prostatitis.TRUS bx (12/18/21) - 53.7 gm - + Prostate cancer - cT2c - Phil 4+4 = 8- Phil 4+4 = 8 - Left apex/mid/base, Right base - (100%) - no perineural invasion- Phil 3+4 = 7 - Right apex (10%) - no perineural invasion- Phil 3+3 = 6 - Right mid [...] skeletal metastatic disease Stone He MD [address] [facility],[address], [place], [address], [place] [facility] 01/08/2022 18:34:33
--- OUTSIDE RECORDS SUMMARY | 2025-01-01 20:18 | XMS_ITS | Clinical Summary ---
Author Organization [facility] Address [facility] [place] [address] Care Team Providers Care Cmm Operator Name Role Phone Stone He MD Unavailable [phone] Jacquelyn Fleming Primary Care Provider Edgar Meier MD Unavailable [phone] Luis Perdomo MD Unavailable [phone] Bassem Torres MD Unavailable [phone] Allergies Active Allergy Reactions Criticality Noted Date Comments [place] Cough 03/13/2023 Mold Cough 03/13/2023 Unlisted Allergen (Include Detail In Comments) Shortness Of Breath,Cough,Throat Swelling/Closing,Vomi ting,Wheezing High 05/18/2024 Recycled concrete Medications NebulizerIndication s:Pneumonitis, hypersensitivity (HC),Bronchitis,Mil d intermittent asthma, uncomplicated (HC) Nebulizer disposable neb kit x 4, reuseable neb kit x 1, mask x 1, filters x 1. Use qid Medication: duoneb Length of need: 99 months 1 Device 019 Active multivitamin (MVI) tablet Take 1 tablet by mouth once daily. 0 020 Active aspirin (ECOTRIN) 81 mg enteric coated tablet Take 1 tablet by mouth once daily with a meal. 0 020 Active nebulizer accessories kitIndications:Mild intermittent asthma without complication (HC) For home use. Length of need: 99 1 Kit 023 Active albuterol HFA (PRO-AIR; VENTOLIN; PROVENTIL) 90 mcg/actuation inhalerIndications: Pneumonitis, hypersensitivity (HC) Inhale 2 Puffs by mouth every 4 hours if needed for Shortness Of Breath or Wheezing. 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 High frequency 024 Active nystatin powder (MYCOSTATIN) powderIndications:R allen Apply 1 Strip topically to affected area(s) three times daily. 60 g 5 024 Active calcitonin salmon, 200 units per actuation, nasal (MIACALCIN, FORTICAL) 200 unit/actuation nasal sprayIndications:Co mpression fracture of L1 vertebra, initial encounter (HC) Inhale 1 [place] into affected nostril(s) once daily. Alternating nostrils daily. 3.7 mL 2 024 Active alendronate (FOSAMAX) 70 mg tabletIndications:O steoporosis, unspecified osteoporosis type, unspecified pathological fracture presence Take 1 Tablet (70 mg) by mouth once a week in the morning. Take on empty stomach with full glass of water. Do not lie down for 1 hr. 12 Tablet 3 024 Active rosuvastatin (CRESTOR) 20 mg tabletIndications:C oronary artery disease, unspecified vessel or lesion type, unspecified whether angina present, unspecified whether [place] or transplanted heart TAKE 1 TABLET BY MOUTH EVERYDAY AT BEDTIME 90 Tablet 3 025 Active metoprolol tartrate 25 mg tabletIndications:S /P AVR (aortic valve replacement) Take 1 Tablet (25 mg) by mouth two times daily. 180 Tablet 3 025 Active albuterol-ipratropi um (2.5-0.5 mg) in 3 mL NEBULIZATION solutionIndications :Pneumonitis, hypersensitivity (HC) Inhale 3 mL via a nebulizer 4 times daily if needed for Shortness of Breath 1st choice. 270 mL 025 Active azithromycin (Zithromax Z-Yann) 250 mg tabletIndications:P neumonitis, hypersensitivity (HC) Take 500 mg (2 tabs) by mouth on day 1, then 250 mg (1 tab) daily for days 2-5. 6 Tablet Active albuterol-ipratropi um (DUONEB) (2.5-0.5 mg) in 3 mL NEBULIZATION solutionIndications :Pneumonitis, hypersensitivity (HC) INHALE 3 ML VIA A NEBULIZER 4 TIMES DAILY IF NEEDED FOR SHORTNESS OF BREATH 1ST CHOICE. 270 mL 1 025 2024 Discontin ued(Reord er (E-cancel not sent)) HYDROcodone-acetami nophen (5-325 mg/tablet)Indicatio ns:Compression fracture of L1 vertebra with routine healing, subsequent encounter,Compressi on fracture of L2 lumbar vertebra, sequela,Compression fracture of L5 vertebra, sequela,Compression fracture of L3 lumbar vertebra, sequela,Compression fracture of L4 vertebra with routine healing, subsequent encounter Take 1 Tablet by mouth 3 times daily if needed for Pain. Max acetaminophen dose: 4000 mg in 24 hrs. 21 Tablet 025 2024 Discontin ued(*Med complete/ Regimen complete/ Level of care change) azithromycin (Zithromax Z-Yann) 250 mg tabletIndications:M ild intermittent asthma with exacerbation (HC) Take 500 mg (2 tabs) by mouth on day 1, then 250 mg (1 tab) daily for days 2-5. 6 Tablet 025 2024 Discontin ued(*Katia ent states no longer taking) amoxicillin 500 mg tabletIndications:S /P AVR (aortic valve replacement) Take 4 Tablets (2,000 mg) by mouth one time for 1 dose. Take prior to dental procedure. 4 Tablet 025 2024 doxycycline hyclate 100 mg capsuleIndications: Subacute cough,SOB (shortness of breath),Pneumonitis , hypersensitivity (HC) Take 1 Capsule (100 mg) by mouth two times daily for 7 days. 14 Capsule 025 2024 predniSONE 10 mg tabletIndications:S ubacute cough,SOB (shortness of breath),Pneumonitis , hypersensitivity (HC) Take 4 Tablets (40 mg) by mouth once daily with a meal for 3 days, THEN 3 Tablets (30 mg) once daily with a meal for 3 days, THEN 2 Tablets (20 mg) once daily with a meal for 3 days, THEN 1 Tablet (10 mg) once daily with a meal for 3 days. 30 Tablet 025 2024 Hospital, Clinic, or Other Facility Administered Medication Ordered Dose Route Frequency Start Date End Date Status denosumab (PROLIA) injection 60 mgIndications:Age-re lated osteoporosis without current pathological fracture 60 mg SubQ Q 6 MONTHS (24 WEEKS) 12/30/2024 11/30/2025 Active Active Problems Problem Noted Date Diagnosed Date Primary malignant neoplasm of prostate 3 Thoracic aortic ectasia 09/27/2021 S/P AVR (aortic valve replacement) 10/05/2020 Overview (10/05/2020): Aortic valve replacement with a 27 mm [place] Inspiris Resilia valve - Dr. Cavanaugh 08/04/21 Pneumonitis, hypersensitivity 11/22/2013 Mild intermittent asthma 02/06/2013 Hypertension 10/15/2011 Benign neoplasm of colon 12/22/2008 Overview (03/19/2023): Colonoscopy 11/2008 polyp repeat in 5 years Colonoscopy 10/2014 polyps repeat in 5 years Colonoscopy 02/2023 normal, no follow up colonoscopy Nonrheumatic aortic valve stenosis Resolved Problems Problem Noted Date Diagnosed Date Resolved Date Depression, recurrent 01/23/20232023 Anticoagulation monitoring, INR range 2-3 10/15/2020 01/02/2021 Encounters Date Type Department Care Team Description 12/30/2024 8:35 AM CDT Office Visit [facility] [address] [place] [address] Nela Andino PA Cough 12/29/2024 9:40 AM CDT Office Visit [facility] [address] [address] Bassem Torres MD Consult (Osteoporosis ) 12/29/2024 Travel 12/12/[address] [facility] [address] [place] [address] Jacquelyn Fleming PA Referral (Endocrinology) 12/08/2024 12:00 PM CDT Ancillary Procedure [facility] [address] [facility] [address] 12/08/2024 11:05 AM CDT Office Visit [facility] [address] [place] [address] Nela Andino PA Cough 12/08/2024 Travel 11/18/[address] [facility] [address] [place] [address] Nela Andino PA 1 scan: (1-Ord) NFLD-EKG-11/17/24 11/17/2024 9:50 AM CDT Office Visit [facility] [address] [place] [address] Nela Andino PA Cough 11/17/2024 Travel 10/27/2024 9:10 AM ACID TENDER Telemedicine [facility] [address] [place] [address] Babs Martinez MD 10/27/2024 Travel 10/24/2024 10:15 AM ACID TENDER Ancillary Procedure [facility] [address] [place] [address] 10/24/2024 Orders Only [facility] [address] [place] [address] Yassine Loaiza PA <No scans attached> 10/24/2024 Orders Only [facility] [address] [place] [address] Yassine Loaiza PA <No scans attached> 10/24/2024 Orders Only [facility] [address] [place] [address] Yassine Loaiza PA <No scans attached> 10/18/2024 9:10 AM ACID TENDER Office Visit [facility] [address] [place] [address] Jacquelyn Fleming PA Follow Up (Having painful tingling and tightness on outsides of both legs, keeping him up at night.); Cough (Productive cough is starting up again) 10/17/2024 Travel 10/10/2024 7:12 AM ACID TENDER - 10/10/2024 11:59 PM ACID TENDER Hospital Encounter [facility] [address] [place] [address] Jacquelyn Fleming PA Weakness of both lower extremities; Compression fracture of L1 vertebra with routine healing, subsequent encounter; Compression fracture of L2 lumbar vertebra, sequela; Compression fracture of L3 lumbar vertebra, sequela; Compression fracture of L5 vertebra, sequela 10/10/[address] [facility] [address] [place] [address] Jacquelyn Fleming PA Results 10/10/2024 Travel 10/04/2024 10:45 AM ACID TENDER Ancillary Procedure [facility] [address] [place] [address] 10/04/2024 10:10 AM ACID TENDER Office Visit [facility] [address] [place] [address] Jacquelyn Fleming PA Cough (Productive ); Wheezing; Leg Pain/problem (Losing strength in his legs / pain, can't stand very long x 7-10 days) 10/04/2024 Travel from Last 3 Months Immunizations Immunization Administration Dates Next Due Amb Influenza, Inact (High-d ose) (Flu Clinic Only) 07/11/2016 COVID-19 vaccine (Moderna 50mcg/0.5mL) 12YO+ BIVALENT PF, MDV 06/27/2022 COVID-19 vaccine (Pfizer-Bio NTech 30mcg/0.3mL) PF, MDV 11/20/2020,10/30/2020 Influenza, High-dose Inactivated 024,05/02/2019,05/01/2017,2015,07/05/2015 Influenza, High-dose Quadriv alent Inactivated 05/07/2021 Influenza, IIV3 (Age 6-35 mos) 11/09/2015 Influenza, IIV3 (Age >=3 years) 07/04/20 13,06/20/2010,07/21/2007,2003 Influenza, Inactivated AIIV4 (Age 65+ Years) Preserv Free 06/27/2022 Influenza, Inactivated IIV3 (Age 65+ Years) Preserv Free 05/18/2018 Pneumococcal Poly,23-Valent (Pneumovax) 11/21/2016 Pneumococcal conj 13-Valent (Prevnar 13) 11/14/2015 Td (Age >=7 Years) 09/06/2003 Tdap 12/30/2023,12/19/2013 Zoster (Zostavax-ZVL, live) 07/04/2013 Family History Medical [...] 0 12/14/2023 Social Connections Answer Date Recorded Do you often feel lonely or isolated from those around you? 0 09/14/2024 Financial Resource Strain Answer Date R ecorded Difficulty of Paying Living Expenses 3 09/14/2024 Difficulty of Paying Living Expenses Not on file 09/14/2024 Food Insecurity Answer Date Recorded Do you worry your food will run out before you are able to buy more? 1 09/14/2024 Transportation Needs Answer Date Record ed Does lack of transportation keep you from medica l appointments? 1 09/14/2024 Does lack of transportation keep you from work, meetings or getting things that you need? 1 09/14/2024 Housing Stability Answer Date Recorded What is your housing situation today? 1 09/14/2024 Utilities Answer Date Recorded Do you have trouble paying f or utilities (for example, heat, electricity, water, phone)? 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 Not on file Not on fi le Obstetrics History Last Filed Vital Signs Vital Sign Reading Time Taken Comments Blood Pressure 158/95 12/30/2024 8:42 AM CDT Pulse 88 12/30/2024 8:42 AM CDT Temperature 36.4 C (97.5 F) 12/08/2024 10:59 AM CDT Respiratory Rate 16 10/08/2023 8:33 AM ACID TENDER Oxygen Saturation 95% 12/30/2024 8:42 AM CDT Inhaled Oxygen Concentration - - Weight 94.3 kg (208 lb) 12/29/2024 9:44 AM CDT Height 175.3 cm (5' 9) 12/14/2023 9:31 AM CDT Body Mass Index 30.72 12/14/2023 9:31 AM CDT Plan of Treatment Upcoming Encounters Date Type Department Care Team (Late st Contact Info) Description 01/06/2025 10:50 AM CDT Office Visit [facility] [address] [place] [address] Jacquelyn Fleming PA [address] [place] [address] Health Maintenance Due Date Last Done Comments Zoster (shingles) series for age 50+ (2 of 3) 08/29/2013 07/04/2013 COVID-19 vaccine series (2023- season) 2024 08/10/2023, 06/27/2022, 07/16/2021, Additional history exists RSV vaccine for adults or (1 - 1-dose 75+ series) 2024 BMI (ht and wt on same day) for age 18+ 12/13/2024 12/14/2023, 10/08/2023, 01/23/2023, Additional history exists Depression screening for age 12+ 12/13/2024 12/14/2023, 12/11/2022, 12/10/2022, Additional history exists Medicare Wellness for age 65+ 12/14/2024, 12/10/2022, 12/02/2021 Lipids for age 45-75 12/13/2028 12/14/2023, 12/10/2022, 12/02/2021, Additional history exists Colonoscopy through age 75 02/09/203302/09, 02/09/2023, 11/02/2014, Additional history exists Tetanus booster 12/29/2033 12/30/2023, 11/23, 09/06/2003 Pneumococcal series for age 50+ Completed 7, 11/14/2015 Hepatitis C screening for ag e 18-79 Completed 12/02/2021 Tdap Completed 12/30/2023, 12/19/2013 Influenza Vaccine Completed 05/18/2024, , 05/02/2019, Additional history exists Medical Devices Implanted Type Area Jump Iron Machine Presser Device Identifier Shelf Expiration Date Model / Serial / Lot Valve Aortic 27mm Inspirus Resilia Tissue - [id number] Implanted:Qty: 1 on 10/05/2020 by Darshan Cavanaugh MD at [facility] N/A: Aortic Valve [employer] 05/03/2024 [id number] / [id number] / Description: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 Procedures Procedure Name Priority Date/Time Associated Diagnosis Comments VITAMIN D 25 (DEFICIENCY) Routine 12/30/2024 9:25 AM CDT Age-related osteoporosis without current pathological fracture CREATININE Routine 12/30/2024 9:25 AM CDT Age-related osteoporosis without current pathological fracture CALCIUM Routine 12/30/2024 9:25 AM CDT Age-related osteoporosis without current pathological fracture XR CHEST 2 VIEWS PA AND LATERAL JACEY 12/08/2024 12:01 PM CDT Pneumonitis, hypersensitivity (HC) Subacute cough SOB (shortness of breath) COVID/FLU/RSV PANEL Routine 12/08/2024 1 1:45 AM CDT Subacute cough SOB (shortness of breath) Pneumonitis, hypersensitivity (HC) EKG 12 LEAD Routine 11/18/2024 11:05 AM CDT PVC (premature ventricular contraction) SC READING EKG - NO CHARGE, COMP ONLY Routine 11/18/2024 11:04 AM CDT PVC (premature ventricular contraction) XR SPINE THORACOLUMBAR JUNCTION MINIMUM OF 2 VIEWS Routine 10/24/2024 10:20 AM ACID TENDER Closed wedge compression fracture of L4 vertebra with delayed healing, subsequent encounter MR SPINE LUMBAR WO STAT 10/10/2024 7: 42 AM ACID TENDER Weakness of both lower extremities Compression fracture of L1 vertebra with routine healing, subsequent encounter Compression fracture of L2 lumbar vertebra, sequela Compression fracture of L3 lumbar vertebra, sequela Compression fracture of L5 vertebra, sequela CBC WITH AUTO DIFFERENTIAL Routine 10/04/2024 11:33 AM ACID TENDER Weakness of both lower extremities Compression fracture of L1 vertebra with routine healing, subsequent encounter Compression fracture of L2 lumbar vertebra, sequela Compression fracture of L3 lumbar vertebra, sequela Compression fracture of L5 vertebra, sequela SEDIMENTATION RATE Routine 10/04/2024 11 :33 AM ACID TENDER Weakness of both lower extremities Compression fracture of L1 vertebra with routine healing, subsequent encounter Compression fracture of L2 lumbar vertebra, sequela Compression fracture of L3 lumbar vertebra, sequela Compression fracture of L5 vertebra, sequela C-REACTIVE PROTEIN Routine 10/04/2024 11 :33 AM ACID TENDER Weakness of both lower extremities Compression fracture of L1 vertebra with routine healing, subsequent encounter Compression fracture of L2 lumbar vertebra, sequela Compression fracture of L3 lumbar vertebra, sequela Compression fracture of L5 vertebra, sequela CK TOTAL Routine 10/04/2024 11:33 AM ACID TENDER Weakness of both lower extremities Compression fracture of L1 vertebra with routine healing, subsequent encounter Compression fracture of L2 lumbar vertebra, sequela Compression fracture of L3 lumbar vertebra, sequela Compression fracture of L5 vertebra, sequela COMP METABOLIC PANEL Routine 10/04/2024 11:33 AM ACID TENDER Weakness of both lower extremities Compression fracture of L1 vertebra with routine healing, subsequent encounter Compression fracture of L2 lumbar vertebra, sequela Compression fracture of L3 lumbar vertebra, sequela Compression fracture of L5 vertebra, sequela XR SPINE LUMBAR 3 VIEWS Routine 10/04/2024 10:58 AM ACID TENDER Weakness of both lower extremities LIPID PANEL W REFLEX MEASURED LDL Routine 12/14/2023 10:26 AM CDT Coronary artery disease, unspecified vessel or lesion type, unspecified whether angina present, unspecified whether [place] or transplanted heart COLONOSCOPY SCREENING Routine 02/09/2023 12:00 AM CDT Diverticulosis ANTI HCV Routine 12/02/2021 8:17 AM CDT Need for hepatitis C screening test from Last 3 Months or Most Recently Relevant to Health Maintenance Results * VITAMIN D [MSP240J] (12/30/2024 9:25 AM CDT) VITAMIN D,25-OH,TOTAL,IA 45 30 - 100 ng/mL [facility] Comment: Vitamin D Status 25-OH Vitamin D: Deficiency: <20 ng/mL Insufficiency: 20 - 29 ng/mL Optimal: > or = 30 ng/mL For 25-OH Vitamin D testing on patients on D2-supplementation and patients for whom quantitation of D2 and D3 fractions is required, the QuestAssure[facility](TM) 25-OH VIT D, (D2,D3), LC/MS/MS is recommended: order code 69925 (patients >2yrs). See Note 1 Note 1 For additional information, please refer to http://education.Tocagen/faq/DSE098 (This link is being provided for informational/ educational purposes only.) Blood BLOOD SPECIMEN / Unknown 12/30/2024 9:25 AM CDT 12/30/2024 9:26 AM CDT us Bassem Torres MD SEND OUTS Final Result too.me [facility] [address] [place] [address], [facility] [address] [place] [address] * CREATININE [14916.2] (12/30/2024 9:25 AM CDT) CREATININE 0.85 0.70 - 1.28 mg/dL [facility] EGFR 91 > OR = 60 mL/min/1.73 m2 [facility] Blood BLOOD SPECIMEN / Unknown 12/30/2024 9:25 AM CDT 12/30/2024 9:26 AM CDT us Bassem Torres MD CHEMISTRY Final Result too.me [facility] [address] [place] [address], [facility] [address] [place] [address] * CALCIUM [48835.0] (12/30/2024 9:25 AM CDT) CALCIUM 9.2 8.6 - 10.3 mg/dL [facility] Blood BLOOD SPECIMEN / Unknown 12/30/2024 9:25 AM CDT 12/30/2024 9:26 AM CDT us Bassem Torres MD CHEMISTRY Final Result Performing Organization Address City/[facility]/ZIP Co de Phone Number too.me [facility] [address] [place] [address], [facility] [address] [place] [address] * XR CHEST 2 VIEWS PA AND LATERAL (12/08/2024 12:01 PM CDT) Anatomical Region Laterality Modality CHEST, THORAX, Lung, HEART Compu ady Radiography 12/08/2024 1:00 PM CDT Impressions 12/08/2024 1:00 PM CDT No acute findings and no significant changes from the prior exam. Chronic pulmonary fibrosis appears stable. Dictated by Glenn Concepcion MD @ 12/08/2024 1:00:03 PM (Electronically Signed) Narrative 12/08/2024 1:00 PM CDT For Patients: As a result of the Cures Act, medical imaging exams and procedure reports are released immediately into your electronic medical record. You may view this report before your referring provider. If you have questions, please contact your health care provider. INDICATION: Pneumonitis, hypersensitivity. Subacute cough. Shortness of breath. TECHNIQUE: Chest 2 views. COMPARISON: 06/30/2023. FINDINGS: Cardiovascular and mediastinum: Heart size is normal. Unremarkable mediastinum. Lungs and pleural spaces: Stable chronic fibrosis. No focal infiltrates. No effusions and no pneumothorax. Bones and soft tissues: No significant findings. Procedure Note Glenn Concepcion MD - 12/08/2024 For Patients: As a result of the Cures Act, medical imagingexams and procedure reports are released immediately into your electronicmedical record. You may view this report before your referring provider.If you have questions, please contact your health care provider. INDICATION: Pneumonitis, hypersensitivity. Subacute cough. Shortness of breath. TECHNIQUE: Chest 2 views. COMPARISON: 06/30/2023. FINDINGS: Cardiovascular and mediastinum: Heart size is normal. Unremarkablemediastinum. Lungs and pleural spaces: Stable chronic fibrosis. No focal infiltrates.No effusions and no pneumothorax. Bones and soft tissues: No significant findings. IMPRESSION: No acute findings and no significant changes from the prior exam. Chronicpulmonary fibrosis appears stable. Dictated by Glenn Concepcion MD @ 12/08/2024 1:00:03 PM (Electronically Signed) Nela R[facility] GENER[facility] Final Result * COVID/FLU/RSV PANEL (12/08/2024 11:45 AM CDT) COVID 19 [facility] Negative Negative 12/08/2024 11:13 PM CDT [facility] Comment:All PCR tests are hui bject to false negative result due to variability in viral load and collection technique. A negative result does not rule out a SARS-CoV-2 infection. Clinical correlation required. INFLUENZA A PCR Negative 11:13 PM CDT [facility] INFLUENZA B PCR Negative 11:13 PM CDT [facility] Respiratory Syncytial Virus Negative 12/08/2024 11:13 PM CDT [facility] Swab NASOPHARYNGEAL SWAB / Unknown Non-Blood / Unknown 12/08/2024 11:45 AM CDT 12/08/2024 11:45 AM CDT Nela RICE MICROBIOLOGY Final Result [facility] [address] [place] [address], * EKG 12 LEAD (11/18/2024 11:05 AM CDT) us Nela RICE EKG ORD Final Result * SC READING EKG - NO CHARGE, COMP ONLY (11/18/2024 11:04 AM CDT) us Nela RICE PB - PROVIDER READINGS Final Result * XR SPINE THORACOLUMBAR JUNCTION MINIMUM OF 2 VIEWS (10/24/2024 10:20 AM ACID TENDER) Anatomical Region Laterality Modality Spine, THORACIC SPINE Digital Ra diography 10/24/2024 3:54 PM ACID TENDER Narrative 10/24/2024 3:54 PM ACID TENDER For Patients: As a result of the Century Cures Act, medical imaging exams and procedure reports are released immediately into your electronic medical record. You may view this report before your referring provider. If you have questions, please contact your health care provider. Indication: Closed wedge compression fracture of L4 with delayed healing. Technique: AP and lateral views of the lumbar spine and thoracolumbar junction. Comparison: Lumbar spine radiograph 10/04/2024 Findings: The mild anterior wedge fracture deformity of the superior endplate of L4 is unchanged. Mild compression deformity the superior endplate of T11, anterior wedge fracture deformity of L1, minimal compression deformity of the inferior endplate of L2, minimal compression deformity of the superior endplate of L3 and minimal compression deformity of the inferior endplate of L5 are unchanged compared to the previous study. Minimal scoliosis of the lumbar spine, unchanged. Degenerative disc disease and facet arthrosis throughout the lumbar spine, unchanged. Impression: Unchanged anterior wedge and compression fracture deformities involving the lower thoracic and lumbar spine. Dictated by Nilson Griffin MD @ 10/24/2024 3:54:13 PM (Electronically Signed) Procedure Note Nilson Griffin MD - 10/24/2024 For Patients: As a result of the Cures Act, medical imagingexams and procedure reports are released immediately into your electronicmedical record. You may view this report before your referring provider.If you have questions, please contact your health care provider. Indication: Closed wedge compression fracture of L4 with delayed healing. Technique: AP and lateral views of the lumbar spine and thoracolumbar junction. Comparison: Lumbar spine radiograph 10/04/2024 Findings: The mild anterior wedge fracture deformity of the superior endplate of L4is unchanged. Mild compression deformity the superior endplate of T11, anterior wedgefracture deformity of L1, minimal compression deformity of the inferiorendplate of L2, minimal compression deformity of the superior endplate ofL3 and minimal compression deformity of the inferior endplate of L5 areunchanged compared to the previous study. Minimal scoliosis of the lumbar spine, unchanged. Degenerative discdisease and facet arthrosis throughout the lumbar spine, unchanged. Impression: Unchanged anterior wedge and compression fracture deformities involvingthe lower thoracic and lumbar spine. Dictated by Nilson Griffin MD @ 10/24/2024 3:54:13 PM (Electronically Signed) [facility] Final Re sult * MR SPINE LUMBAR WO (10/10/2024 7:42 AM ACID TENDER) Anatomical Region Laterality Modality Spine, LUMBAR SPINE Magnetic Res onance 10/10/2024 8:28 AM ACID TENDER Narrative 10/10/2024 8:28 AM ACID TENDER For Patients: As a result of the Cures Act, medical imaging exams and procedure reports are released immediately into your electronic medical record. You may view this report before your referring provider. If you have questions, please contact your health care provider. Indication: R29.898 Weakness of both lower extremities S32.010D Compression fracture of L1 vertebra with routine healing, subsequent encounter S32.020S Compression fracture of L2 lumbar vertebra, sequela S32.030S Compression fracture of L3 lumbar vertebra, sequela S32.050S Compression fracture of L5 vertebra, sequela Abrupt onset of LE weakness, ho prostate cancer, compression fractures Technique: Multiplanar multisequence MRI of the lumbar spine without contrast. Comparison: 10/04/2024, 04/27/2024. Findings: Bones: 5 lumbar type vertebral bodies. Straightening of the lumbar lordosis without subluxation. Multilevel disc desiccation, disc vacuum phenomena and intervertebral disc space narrowing. Degree of disc space narrowing is similar to prior. Slight progression of severe L1 vertebral body height loss compared to April 2024 with persistent superior endplate fracture line and decreased but mild persistent bone marrow edema. Similar mild vertebral body height loss at L2. There is a low signal inferior endplate fracture line with near complete resolution of bone marrow edema compared to prior. Similar mild vertebral body height loss at L3. Complete resolution bone marrow edema associated with prior inferior endplate fracture. Trace type 1 Modic endplate edema at L2-L3. New oblique fracture line within the L4 vertebral body with mild associated bone marrow edema. There is mild loss of vertebral body height. No significant retropulsion. Similar inferior endplate Schmorl`s node Similar mild-moderate vertebral body height loss at L5. There is a low signal inferior endplate fracture line with slight decrease in associated bone marrow edema compared to prior. New superior endplate fracture with associated bone marrow edema involving S1. Conus medullaris and cauda equina: Conus terminates at L1-L2. Normal signal of the conus medullaris and cauda equina nerve roots. Paraspinal and retroperitoneum: Mild paraspinal muscle atrophy. Otherwise unremarkable. Interbody analysis: T12-L1: Mild bilateral facet arthropathy. No spinal canal or foraminal stenosis. L1-L2: Mild superior endplate retropulsion at L1 resulting in similar mild spinal canal stenosis. Mild bilateral facet arthropathy. No neural foraminal stenosis. L2-L3: Progression diffuse disc bulge with prominent dorsal epidural fat and mild bilateral facet arthropathy. This results in increased moderate spinal canal stenosis. Increased mild bilateral neural foraminal stenosis. L3-L4: Similar diffuse disc bulge, mild facet arthropathy and prominent dorsal epidural fat resulting in mild-moderate spinal canal stenosis. Similar mild left neural foraminal stenosis. Right neural foramen is patent. L4-L5: Mild diffuse disc bulge, mild facet arthropathy and prominent dorsal epidural fat without spinal canal stenosis. Similar mild-moderate left neural foraminal stenosis. Right neural foramen is patent. L5-S1: Similar diffuse disc bulge with superimposed small central disc protrusion. Moderate bilateral facet arthropathy is present. Mild bilateral lateral recess narrowing is present. Moderate left neural foraminal stenosis is unchanged. Moderate-severe right neural foraminal stenosis is similar. Impression: 1. Compared to 04/27/2024 MRI, new osteoporotic compression fracture at L4 with mild vertebral body height loss and associated marrow edema. 2. New superior endplate fracture at S1. 3. Mild progression of severe L1 vertebral body height loss at the known chronic osteoporotic compression fracture. 4. Similar L2, L3 and L5 compression fractures with decrease in associated endplate edema. 5. At L2-L3, increased disc bulge with prominent epidural fat resulting in increased moderate spinal canal stenosis and mild neural foraminal stenosis. 6. At L3-L4, mild-moderate spinal canal stenosis and mild left neural foraminal stenosis. 7. At L4-L5, mild-moderate left neuroforaminal stenosis. 8. At L5-S1, moderate left and moderate-severe right neural foraminal stenosis. 9. At L1, mild spinal canal stenosis associated with superior endplate retropulsion. Dictated by Yue Blanco MD @ 10/10/2024 8:28:24 AM (Electronically Signed) Procedure Note Yue Blanco DO - 10/10/2024 For Patients: As a result of the Century Cures Act, medical imagingexams and procedure reports are released immediately into your electronicmedical record. You may view this report before your referring provider.If you have questions, please contact your health care provider. Indication: R29.898 Weakness of both lower extremities S32.010D Compression fracture of L1 vertebra with routine healing,subsequent encounter S32.020S Compression fracture of L2 lumbar vertebra, sequela S32.030S Compression fracture of L3 lumbar vertebra, sequela S32.050S Compression fracture of L5 vertebra, sequela Abrupt onset of LE weakness, ho prostate cancer, compression fractures Technique: Multiplanar multisequence MRI of the lumbar spine without contrast. Comparison: 10/04/2024, 04/27/2024. Findings: Bones: 5 lumbar type vertebral bodies. Straightening of the lumbarlordosis without subluxation. Multilevel disc desiccation, disc vacuumphenomena and intervertebral disc space narrowing. Degree of disc spacenarrowing is similar to prior. Slight progression of severe L1 vertebral body height loss compared toSeptember 2023 with persistent superior endplate fracture line anddecreased but mild persistent bone marrow edema. Similar mild vertebral body height loss at L2. There is a low signalinferior endplate fracture line with near complete resolution of bonemarrow edema compared to prior. Similar mild vertebral body height loss at L3. Complete resolution bonemarrow edema associated with prior inferior endplate fracture. Trace type1 Modic endplate edema at L2-L3. New oblique fracture line within the L4 vertebral body with mildassociated bone marrow edema. There is mild loss of vertebral body height.No significant retropulsion. Similar inferior endplate Schmorl`s node Similar mild-moderate vertebral body height loss at L5. There is a lowsignal inferior endplate fracture line with slight decrease in associatedbone marrow edema compared to prior. New superior endplate fracture with associated bone marrow edema involvingS1. Conus medullaris and cauda equina: Conus terminates at L1-L2. Normalsignal of the conus medullaris and cauda equina nerve roots. Paraspinal and retroperitoneum: Mild paraspinal muscle atrophy. Otherwiseunremarkable. Interbody analysis: T12-L1: Mild bilateral facet arthropathy. No spinal canal or foraminalstenosis. L1-L2: Mild superior endplate retropulsion at L1 resulting in similar mildspinal canal stenosis. Mild bilateral facet arthropathy. No neuralforaminal stenosis. L2-L3: Progression diffuse disc bulge with prominent dorsal epidural fatand mild bilateral facet arthropathy. This results in increased moderatespinal canal stenosis. Increased mild bilateral neural foraminal stenosis. L3-L4: Similar diffuse disc bulge, mild facet arthropathy and prominentdorsal epidural fat resulting in mild-moderate spinal canal stenosis.Similar mild left neural foraminal stenosis. Right neural foramen ispatent. L4-L5: Mild diffuse disc bulge, mild facet arthropathy and prominentdorsal epidural fat without spinal canal stenosis. Similar mild-moderateleft neural foraminal stenosis. Right neural foramen is patent. L5-S1: Similar diffuse disc bulge with superimposed small central discprotrusion. Moderate bilateral facet arthropathy is present. Mildbilateral lateral recess narrowing is present. Moderate left neuralforaminal stenosis is unchanged. Moderate-severe right neural foraminalstenosis is similar. Impression: 1. Compared to 04/27/2024 MRI, new osteoporotic compression fracture at L4with mild vertebral body height loss and associated marrow edema. 2. New superior endplate fracture at S1. 3. Mild progression of severe L1 vertebral body height loss at the knownchronic osteoporotic compression fracture. 4. Similar L2, L3 and L5 compression fractures with decrease in associatedendplate edema. 5. At L2-L3, increased disc bulge with prominent epidural fat resulting inincreased moderate spinal canal stenosis and mild neural foraminalstenosis. 6. At L3-L4, mild-moderate spinal canal stenosis and mild left neuralforaminal stenosis. 7. At L4-L5, mild-moderate left neuroforaminal stenosis. 8. At L5-S1, moderate left and moderate-severe right neural foraminalstenosis. 9. At L1, mild spinal canal stenosis associated with superior endplateretropulsion. Dictated by Yue Blanco MD @ 10/10/2024 8:28:24 AM (Electronically Signed) Jacquelyn RICE MR Final R esult * (ABNORMAL) SEDIMENTATION RATE (10/04/2024 11:33 AM ACID TENDER) SED RATE BY MODIFIED NAYANREN 22(H) < OR = 20 mm/h [facility] Blood BLOOD SPECIMEN / Unknown 10/04/2024 11:33 AM ACID TENDER 10/04/2024 11:33 AM ACID TENDER us Jacquelyn RICE HEMATOLOGY Final R esult too.me [facility] [address] [place] [address], [facility] [address] [place] [address] * (ABNORMAL) C-REACTIVE PROTEIN (10/04/2024 11:33 AM ACID TENDER) [facility] C-REACTIVE PROTEIN 27.8(H) <8.0 mg/L [facility] Blood BLOOD SPECIMEN / Unknown 10/04/2024 11:33 AM ACID TENDER 10/04/2024 11:33 AM ACID TENDER Jacquelyn RICE CHEMISTRY Final R esult too.me [facility] [address] [place] [address], [facility] [address] [place] [address] * (ABNORMAL) CBC AND DIFFERENTIAL (10/04/2024 11:33 AM ACID TENDER) [facility] WHITE BLOOD CELL COUNT 10.7 3.8 - 10.8 Thousand/u L [facility] RED BLOOD CELL COUNT 4.80 4.20 - 5.80 Million/uL [facility] HEMOGLOBIN 14.8 13.2 - 17.1 g/dL [facility] HEMATOCRIT 43.6 38.5 - 50.0 % [facility] MCV 90.8 80.0 - 100.0 fL [facility] MCH 30.8 27.0 - 33.0 pg [facility] MCHC 33.9 32.0 - 36.0 g/dL [facility] Comment: For adults, a slight decrease in the calculated MCHC value (in the range of 30 to 32 g/dL) is most likely not clinically significant; however, it should be interpreted with caution in correlation with other red cell parameters and the patient's clinical condition. RDW 13.0 11.0 - 15.0 % [facility] PLATELET COUNT 147 140 - 400 Thousand/u L [facility] MPV 11.2 7.5 - 12.5 fL [facility] ABSOLUTE NEUTROPHILS 7,811(H) 1,500 - 7,800 cells/uL [facility] ABSOLUTE LYMPHOCYTES 835(L) 850 - 3,900 cells/uL [facility] ABSOLUTE MONOCYTES 1,359(H) 200 - 950 cells/uL [facility] ABSOLUTE EOSINOPHILS 642(H) 15 - 500 cells/uL [facility] ABSOLUTE BASOPHILS 54 0 - 200 cells/uL [facility] NEUTROPHILS 73 % [facility] LYMPHOCYTES 7.8 % [facility] MONOCYTES 12.7 % [facility] EOSINOPHILS 6.0 % [facility] BASOPHILS 0.5 % [facility] Blood BLOOD SPECIMEN / Unknown 10/04/2024 11:33 AM ACID TENDER 10/04/2024 11:33 AM ACID TENDER Jacquelyn RICE HEMATOLOGY Final R esult [facility] [address] [place] [address], [place] [phone] [facility] [address] [place] [address] * CK TOTAL (10/04/2024 11:33 AM ACID TENDER) CREATINE KINASE, TOTAL 23 19 - 278 U/L [facility] Blood BLOOD SPECIMEN / Unknown 10/04/2024 11:33 AM ACID TENDER 10/04/2024 11:33 AM ACID TENDER Jacquelyn RICE CHEMISTRY Final R esult [facility] [address] [place] [address], [place] [phone] [facility] [address] [place] [address] * COMP METABOLIC PANEL (10/04/2024 11:33 AM ACID TENDER) Pathologist [facility] GLUCOSE 90 65 - 99 mg/dL [facility] Comment: Fasting reference interval UREA NITROGEN (BUN) 20 7 - 25 mg/dL [facility] CREATININE 0.98 0.70 - 1.28 mg/dL [facility] EGFR 80 > OR = 60 mL/min/1. 73m2 [facility] BUN/CREATININE RATIO SEE NOTE: 6 - 22 (calc) [facility] Comment: Not Reported: BUN and Creatinine are within reference range. SODIUM 138 135 - 146 mmol/L [facility] POTASSIUM 5.2 3.5 - 5.3 mmol/L [facility] CHLORIDE 100 98 - 110 mmol/L [facility] CARBON DIOXIDE 26 20 - 32 mmol/L [facility] CALCIUM 9.5 8.6 - 10.3 mg/dL [facility] PROTEIN, TOTAL 6.8 6.1 - 8.1 g/dL [facility] ALBUMIN 4.0 3.6 - 5.1 g/dL [facility] GLOBULIN 2.8 1.9 - 3.7 g/dL (calc) [facility] ALBUMIN/GLOBULIN RATIO 1.4 1.0 - 2.5 (calc) [facility] BILIRUBIN, TOTAL 0.8 0.2 - 1.2 mg/dL [facility] ALKALINE PHOSPHATASE 76 35 - 144 U/L [facility] AST 25 10 - 35 U/L [facility] ALT 16 9 - 46 U/L [facility] Blood BLOOD SPECIMEN / Unknown 10/04/2024 11:33 AM ACID TENDER 10/04/2024 11:33 AM ACID TENDER us Jacquelyn RICE CHEMISTRY Final R esult too.me [facility] [address] [place] [address], [facility] [address] [place] [address] * XR SPINE LUMBAR 3 VIEWS (10/04/2024 10:58 AM ACID TENDER) Anatomical Region Laterality Modality LUMBAR SPINE Computed Radiogr aphy 10/04/2024 11:1 8 AM ACID TENDER Impressions 10/04/2024 11:18 AM ACID TENDER Multiple compression deformities lumbar spine, most of which are chronic although there is increased compression of L4 since the prior study. Dictated by Nikos Bright MD @ 10/04/2024 11:18:42 AM (Electronically Signed) Narrative 10/04/2024 11:18 AM ACID TENDER For Patients: As a result of the Cures Act, medical imaging exams and procedure reports are released immediately into your electronic medical record. You may view this report before your referring provider. If you have questions, please contact your health care provider. INDICATION: Weakness of both lower extremities TECHNIQUE: 3-view lumbar spine. COMPARISON: 06/15/2020 FINDINGS: Increased compression of the L4 superior endplate since the prior study. Chronic wedging of L1 and chronic appearance of the L5 and L3 vertebral bodies. Vascular calcifications. Chronic wedging of T11. Postop changes to the soft tissues. Procedure Note Nikos Bright MD - 10/04/2024 For Patients: As a result of the Cures Act, medical imagingexams and procedure reports are released immediately into your electronicmedical record. You may view this report before your referring provider.If you have questions, please contact your health care provider. INDICATION: Weakness of both lower extremities TECHNIQUE: 3-view lumbar spine. COMPARISON: 06/15/2020 FINDINGS: Increased compression of the L4 superior endplate since the prior study.Chronic wedging of L1 and chronic appearance of the L5 and L3 vertebralbodies. Vascular calcifications. Chronic wedging of T11. Postop changes tothe soft tissues. IMPRESSION: Multiple compression deformities lumbar spine, most of which are chronicalthough there is increased compression of L4 since the prior study. Dictated by Nikos Bright MD @ 10/04/2024 11:18:42 AM (Electronically Signed) Jacquelyn [facility] Final R esult * LIPID PANEL W REFLEX MEASURED LDL (12/14/2023 10:26 AM CDT) CHOLESTEROL,TOTAL 158 100 - 199 mg/dL 12/14/2023 7:17 PM CDT [facility] Comment: Cholesterol, Total Reference Ranges Desirable <200 mg/dL Borderline 200-239 mg/dL High >=240 mg/dL TRIGLYCERIDES 101 <150 mg/dL 12/14/2023 7:17 PM CDT [facility] HDL CHOLESTEROL 57 >40 mg/dL 7:17 PM CDT [facility] NON-HDL CHOLESTEROL 101 <145 mg/dl 12/14/2023 7:17 PM CDT [facility] CHOL/HDL RATIO 2.77 <4.50 12/14/2023 7:17 PM CDT [facility] LDL CHOLESTEROL 81 <=130 mg/dL 12/14/2023 7:17 PM CDT [facility] VLDL CHOLESTEROL 20 <=30 mg/dL 12/14/2023 7:17 PM CDT [facility] PROVIDER ORDERED STATUS RANDOM 12/14/2023 7:17 PM CDT [facility] Blood BLOOD SPECIMEN / Unknown Venipuncture / Unknown 12/14/2023 10:26 AM CDT 12/14/2023 10:26 AM CDT us Jacquelyn RICE CHEMISTRY Final R esult [facility] [address] [place] [address], * COLONOSCOPY SCREENING [[id number]] (02/09/2023 12:00 AM CDT) us Jacquelyn RICE GI PROCEDURE ORD Final Result * ANTI HCV (12/02/2021 8:17 AM CDT) HEPATITIS C ANTIBODY Non-React guero Non-React guero 12/02/2021 5:53 PM CDT [facility] Comment:Antibodies to HCV no t detected; does not exclude the possibility of exposure to HCV. Blood BLOOD SPECIMEN / Unknown Venipuncture / Unknown 12/02/2021 8:17 AM CDT 12/02/2021 8:18 AM CDT us Jacquelyn RICE SEND OUTS Final R esult [facility] [address] [place] [address], from Last 3 Months or Most Recently Relevant to Health Maintenance Insurance [facility] MEDICARE [place] ONLY MEDICARE PART A [place] ONLY MEDICARE PART B [place] ONLY Member Subscriber Plan / Payer (Ef fective 2014-Present) Name:Faizan Simon Member ID:[id number] Relation to Subscriber:Self Name:Faizan Simon Subscriber ID:[id number] Payer ID:Not on file Group ID:Not on file Type:Not on file Address: ATTN: CLAIMS [address] [place] [id number] [place] [address] Advance Directives * Full Code (Latest Code Status on File) Date Activated Date Inactivated Comments 10/05/2020 6:34 AM 10/10/2020 2:00 PM preop Question Answer Comments Code Status Discussion: Other (specify in commen ts): Care Teams Cmm Operator Relationship Specialty Start Date End Date Jacquelyn Fleming PA [address] [place] [address] PCP - General Physician Computer Systems Information Director 07/25/22 Stone He MD [address] [address] Surgery - Urology 07/25/22 Edgar Meier MD [address] [place] [address] Internal Medicine 07/25/22 [place] [address] [place] [address] Pulmonology Pulmonary Medicine 10/08/23 [place] [address] [place] [address] Endocrinology Endocrinology 12/29/24
--- NOTE | 2025-01-01 20:34 | ED.SOB ---
HPI - SOB/Dyspnea General Time Seen by Provider: 20:35 Date Seen: 01/01/25 Chief Complaint: Shortness of Breath/Dyspnea Stated Complaint: Shortness of Breath Time Seen by Provider: 01/01/25 20:33 Source: patient and RN notes reviewed Mode of arrival: ambulatory Limitations: no limitations History of Present Illness HPI Narrative: 74-year-old male with history of COPD who presents to the emergency department with cough and shortness of breath. Related Data Home Medications ?Medication ?Instructions ?Recorded ?Confirmed metoprolol tartrate 25 mg tablet 25 mg PO BID 04/07/22 07/27/24 multivitamin 1 tab PO QAM 04/07/22 07/27/24 albuterol sulfate 90 mcg/actuation 2 puff inhalation Q4H PRN wheezing 11/04/23 07/27/24 aerosol inhaler (Ventolin HFA) aspirin 81 mg tablet,delayed 81 mg PO DAILY 11/04/23 07/27/24 release (Adult Low Dose Aspirin) ipratropium 0.5 mg-albuterol 3 mg 3 ml inhalation QID PRN dyspnea 11/04/23 07/27/24 (2.5 mg base)/3 mL nebulization soln rosuvastatin 20 mg tablet 20 mg PO HS 11/04/23 07/27/24 umeclidinium 62.5 mcg-vilanterol 1 inh inhalation DAILY 11/04/23 07/27/24 25 mcg/actuation powdr for inhalation (Anoro Ellipta) acetaminophen 500 mg tablet 1,000 mg PO TID PRN 11/09/23 07/27/24 nabumetone 500 mg tablet 500 mg PO BID 04/20/24 07/27/24 Previous Rx's ?Medication ?Instructions ?Recorded fluticasone propionate 50 2 spray intranasal DAILY #16 grams 01/10/24 mcg/actuation nasal spray,suspension (Flonase Allergy Relief) gabapentin 300 mg capsule 300 mg PO QHS #60 caps 05/04/24 calcium 600 mg (as 1 tab PO BID #240 tabs 09/05/24 carbonate)-vitamin D3 10 mcg (400 unit) tablet Allergies Allergy/AdvReac Type Severity Reaction Status Date / Time oxybutynin AdvReac Mild Verified 07/27/24 10:10 [facility] Medical History English's lung ?J67.0 - English's lung (ICD-10) Pulmonary infection ?J18.9 - Pneumonia, unspecified organism (ICD-10) Primary malignant neoplasm of prostate ?C61 - Malignant neoplasm of prostate (ICD-10) Bicuspid aortic valve ?Q23.1 - Congenital insufficiency of aortic valve (ICD-10) Chronic obstructive pulmonary disease (COPD) ?J44.9 - Chronic obstructive pulmonary disease, unspecified (ICD-10) Asthma ?J45.909 - Unspecified asthma, uncomplicated (ICD-10) Surgical wound dehiscence ?T81.31XA - Disruption of external operation (surgical) wound, not elsewhere classified, initial encounter (ICD-10) Thoracic aortic ectasia ?I77.810 - Thoracic aortic ectasia (ICD-10) Colon polyp ?K63.5 - Polyp of colon (ICD-10) Essential hypertension ?I10 - Essential (primary) hypertension (ICD-10) Pulmonary fibrosis ?J84.10 - Pulmonary fibrosis, unspecified (ICD-10) [place]' lung ?J67.0 - English's lung (ICD-10) Adenocarcinoma of prostate (~11/2021) ?C61 - Malignant neoplasm of prostate (ICD-10) Surgical History H/O aortic valve replacement with tissue graft ?Z95.4 - Presence of other heart-valve replacement (ICD-10) Hx laparoscopic cholecystectomy ?Z90.49 - Acquired absence of other specified parts of digestive tract (ICD-10) History of incisional hernia repair (~2010) ?Z98.890 - Other specified postprocedural states (ICD-10) ?Z87.19 - Personal history of other diseases of the digestive system (ICD-10) H/O aortic valve replacement (~09/2020) ?Z95.2 - Presence of prosthetic heart valve (ICD-10) Family History Brother Alcohol use disorder Brain aneurysm Diabetes Father Prostate cancer Diabetes Heart disease Sister Diabetes Social History What is your current living situation?: I presently have a place to live Problems where you live: no known problems Problems where you live details: none In the past 12 months, utilities in danger of being shut off: no In past 12 months, lack of transportation kept you from medical appts, meetings, work, or getting things needed for daily living: no In the past 12 mos, have been you worried that your food would run out before you had money to buy more?: never true In the past 12 mos, the food you bought just didn't last and you didn't have money to buy more?: never true Smoking Status: Former smoker Do you use any of these nicotine containing products: None Second hand tobacco smoke exposure: No How often do you have a drink containing alcohol: never How often do you have six or more drinks on one occasion: Never AUDIT-C Alcohol total score: 0 Non-prescribed substance use: denies use How often does anyone, including family, friends and others, physically hurt you: never How often does anyone, including family, friends and others, insult or talk down to you: never How often does anyone, including family, friends and others, threaten you with harm: never How often does anyone, including family, friends and others, scream or curse at you: never service: Yes Exam Narrative: Exam Narrative: General: Well-developed and well-nourished, no acute distress Head: Atraumatic and normocephalic Eyes: Pupils are equal reactive, extraocular motions intact, conjunctiva clear ENT: External nose and ears are normal, posterior pharynx without erythema or exudate Neck: No midline cervical tenderness, full spontaneous range of motion the neck, trachea midline, no adenopathy Heart: Regular rate and rhythm no murmurs or thrills Lungs: Tachypnea, inspiratory and expiratory wheezes and crackles, frequent cough Abdomen: Soft, nontender, nondistended with active bowel sounds Musculoskeletal: No tenderness, deformity, or edema Neurologic: Awake, alert, and oriented x3, no gross focal neurologic deficits, cranial nerves intact as tested Psych: Mood and affect are appropriate Skin: No rashes Const: Vital Signs, click to edit/add: Vital Signs - 24 hr 01/01/25 20:27 01/01/25 20:39 01/01/25 20:45 Temperature 97.9 F Pulse Rate 99 88 Pulse Rate [Pulse Oximeter] 98 Respiratory Rate 24 33 H 30 H Blood Pressure [Ri ght Upper Arm] 157/85 H Pulse Oximetry 92 90 92 Oxygen Delivery Me thod Room Air 01/01/25 21:00 01/01/25 21:15 01/01/25 21:27 Temperature Pulse Rate 83 80 Pulse Rate [Pulse Oximeter] Respiratory Rate 17 23 Blood Pressure [Ri ght Upper Arm] Pulse Oximetry 89 90 92 Oxygen Delivery Me thod Course Course ED Course: Reviewed most recent office visit from December 30 which was for cough which had been worse for couple of days at that time, patient was started on azithromycin for pneumonitis. Patient seen and examined, reports increased cough and shortness of breath for a couple days. On exam, tachypnea with frequent cough, diffuse inspiratory and expiratory wheezes, oxygen saturation 88% on room air. Labs, CXR, Duoneb, prednisone ordered. Reevaluation(s) Time of Reevaluation #1: 21:20 Reevaluation #1: Labs independently interpreted by me with normal WBC, eosinophilia, normal pH and normal pCO2, , negative respiratory panel. CXR independently interpreted by me with fibrosis, trace pleural effusion, question of bilateral patchy infiltrate by limited due to fibrosis. Chest CT ordered as patient has no history of heart failure and no new clinical reason for pulmonary edema, fibrosis decreases sensitivity of exam. BNP pending IMPRESSION: 1. Diffuse interstitial prominence compatible with fibrosis and superimposed pulmonary edema. 2. Bibasilar patchy consolidation, left greater than right, compatible with atelectasis, aspiration and/or pneumonia. 3. Query a small left pleural effusion Time of Reevaluation #2: 21:34 Reevaluation #2: CT chest independently interpreted by me with pulmonary fibrosis, no evidence of heart failure or acute infiltrate. Time of Reevaluation #3: 22:04 Reevaluation #3: Updated patient with findings and plan, his cough seems improved However oxygen saturations still about 90% on room air in do desaturate to 87% when he is talking. discussed disposition with patient, I would lean toward watching him in the hospital and he is agreeable. Care discussed with Dr. Hewitt for admission. Vital Signs Vital signs: Initial Vital Signs Temperature 97.9 F 01/01/25 20:27 Temperature Source Temporal Artery Scan 01/01/25 20:27 Pulse Rate 98 01/01/25 20:27 Respiratory Rate 24 01/01/25 20:27 Blood Pressure 157/85 H 01/01/25 20:27 Blood Pressure Mean 109 H 01/01/25 20:27 Blood Pressure Position Sitting 01/01/25 20:27 Pulse Oximetry 92 01/01/25 20:27 Oxygen Delivery Method Room Air 01/01/25 20:27 Vital Signs Temperature 97.9 F 01/01/25 20:27 Pulse Rate 98 01/01/25 20:27 Respiratory Rate 24 01/01/25 20:27 Blood Pressure 157/85 H 01/01/25 20:27 Pulse Oximetry 92 01/01/25 20:27 Oxygen Delivery Method Room Air 01/01/25 20:27 Temperature 97.9 F 01/01/25 20:27 Pulse Rate 80 01/01/25 21:15 Respiratory Rate 23 01/01/25 21:15 Blood Pressure 157/85 H 01/01/25 20:27 Pulse Oximetry 92 01/01/25 21:27 Oxygen Delivery Method Room Air 01/01/25 20:27 Medications Administered Medications: Discontinued Medications Generic Name Dose Route Start Last Admin Trade Name Freq PRN Reason Stop Dose Admin Budesonide 0.5 mg 01/01/25 20:48 01/01/25 20:59 Budesonide 0.5 Mg/2ml Neb NEB 01/01/25 20:49 0.5 mg ONCE ONE Administration Prednisone 40 mg 01/01/25 20:48 01/01/25 20:56 Prednisone 20 Mg Tablet PO 01/01/25 20:49 40 mg ONCE ONE Administration MDM - SOB/Dyspnea Lab Data Labs: Lab Results 01/01/25 01/01/25 Range/Units 20:25 21:05 WBC 9.20 (4.50-11.00) K/uL RBC 4.23 L (4.30-5.90) m/uL Hgb 13.1 L (13.5-17.5) gm/dL Hct 39.8 (37.0-53.0) % MCV 94 (80-100) fL MCH 31 (26-34) pg MCHC 33 (32-36) gm/dL RDW Coeff of Jose 12.9 (11.5-15.5) % Plt Count 151 (140-440) K/uL Neut % (Auto) 59.1 (42.0-72.0) % Lymph % (Auto) 12.1 L (20-44) % [place] % (Auto) 10.7 (0.0-11.0) % Eos % (Auto) 17.2 H (0.0-7.0) % Baso % (Auto) 0.8 (0.0-3.0) % Neut # (Auto) 5.45 (1.7-7.0) K/uL Lymph # (Auto) 1.10 (0.90-2.90) K/uL [place] # (Auto) 1.00 H (0.00-0.90) K/UL Eos # (Auto) 1.60 H (0.00-0.50) K/uL Baso # (Auto) 0.07 (0.00-0.30) K/uL Abs Immat Gran (auto) 0.01 (0.00-0.30) K/uL Imm/Tot Granulo (auto) 0.1 % VBG pH 7.374 (7.32-7.43) VBG pCO2 48 (40-50) mmHG VBG pO2 41.0 (25-47) mmHG VBG HCO3 28 (21-28) mmol/L Sodium 139 (135-149) mmol/L Potassium 4.2 (3.6-5.1) mmol/L Chloride 105 (96-114) mmol/L Carbon Dioxide 27 (20-32) mmol/L Anion Gap 7 (7-15) mEq/L BUN 16 (7-30) mg/dL Creatinine 0.9 (0.5-1.5) mg/dL Estimated Creat Clear 63.83 Estimated GFR 89 ml/min Glucose 114 (60-115) mg/dL Calcium 9.2 (8.4-10.6) mg/dL Magnesium 1.7 (1.5-2.6) mg/dL NT-Pro-B Natriuret Pep 1600 pg/mL SARS-CoV-2 (PCR) Negative SARS-CoV-2 (Negative) Influenza Type A (PCR) Negative PCR FLU A (Negative) Influenza Type B (PCR) Negative PCR FLU B (Negative) RSV (PCR) Negative PCR RSV (Negative) Discharge Plan Discharge Clinical Impression: Acute hypoxemic respiratory failure, Pulmonary fibrosis, Acute infective exacerbation of chronic obstructive airway disease Patient Disposition: Admitted As Observation
--- NOTE | 2025-01-01 20:48 | CRLHL7_ITS ---
For Patients: As a result of the Century Cures Act, medical imaging exams and procedure reports are released immediately into your electronic medical record. You may view this report before your referring provider. If you have questions, please contact your health care provider. INDICATION: Dyspnea TECHNIQUE: Chest 1 views. COMPARISON: Chest radiograph on August 17, 2024 FINDINGS: Cardiovasculature and mediastinum: Heart and mediastinum are stable with mild cardiomegaly. Lungs and pleural spaces: Lung volumes are low with diffuse interstitial prominence and bibasilar patchy consolidations, left greater than right. Query a small left pleural effusion. No right-sided pleural effusion. No pneumothorax. Bones and soft tissues: No significant findings. IMPRESSION: 1. Diffuse interstitial prominence compatible with fibrosis and superimposed pulmonary edema. 2. Bibasilar patchy consolidation, left greater than right, compatible with atelectasis, aspiration and/or pneumonia. 3. Query a small left pleural effusion. Dictated by Daniela Cui MD @ 01/01/2025 9:10:25 PM (Electronically Signed)
[2025-01-01] MEDS: predniSONE 20 MG TABLET 40 MG PO (20:56)
[2025-01-01] MEDS: BUDESONIDE 0.5 MG/2ML NEB NEB (20:59)
[2025-01-01 21:11] LABS: HCO3 VBG 28 mmol/L (21-28); PCO2 VBG 48 mmHG (40-50); pH VBG 7.374 (7.32-7.43)
[2025-01-01 21:12] LABS: Basophils Absolute Auto 0.07 K/uL (0.00-0.30); Basophils Percent Auto 0.8 % (0.0-3.0); Eosinophils Percent Auto 17.2 % (0.0-7.0); Hematocrit 39.8 % (37.0-53.0); Hemoglobin* 13.1 gm/dL (13.5-17.5); Immature Granulocytes Abs Auto 0.01 K/uL (0.00-0.30); Immature Granulocytes Pct Auto 0.1 %; Lymphocytes Percent Auto 12.1 % (20-44); Mean Corpuscular HGB Conc 33 gm/dL (32-36); Mean Corpuscular Hemoglobin 31 pg (26-34); Mean Corpuscular Volume 94 fL (80-100); Monocytes Percent Auto 10.7 % (0.0-11.0); Neutrophils Absolute Auto 5.45 K/uL (1.7-7.0); Neutrophils Percent Auto 59.1 % (42.0-72.0); Platelet Count* 151 K/uL (140-440); RDW Coefficient of Variation % 12.9 % (11.5-15.5); Red Blood Count 4.23 m/uL (4.30-5.90)
--- NOTE | 2025-01-01 21:12 | CRLHL7_ITS ---
For Patients: As a result of the Century Cures Act, medical imaging exams and procedure reports are released immediately into your electronic medical record. You may view this report before your referring provider. If you have questions, please contact your health care provider. Indication: Cough, dyspnea, abnormal radiographs Technique: Noncontrast CT of the chest with multiplanar reformats. Comparison: Same day chest radiograph, CTA chest performed 11/04/2023 Findings: Lungs: Fibrotic pulmonary disease felt to be not significantly changed from prior examination with no new areas of consolidation appreciated. Mediastinum: No acute abnormality appreciated. Postoperative changes to the aortic valve. Calcified atherosclerosis. Lymph nodes: No gross lymphadenopathy. Upper abdomen: Cholecystectomy. Soft tissues: No acute abnormality appreciated. Bones: No acute abnormality appreciated. Median sternotomy wires. Spondylosis. Impression: Interstitial fibrosis, unchanged from 2023, with no acute abnormality appreciated. Please note that all CT scans at this facility use dose modulation, iterative reconstruction, and/or weight-based dosing when appropriate to reduce radiation dose to as low as reasonably achievable. Dictated by Kirill Haywood MD @ 01/01/2025 9:52:13 PM (Electronically Signed)
[2025-01-01 21:15] LABS: PCR FLU A Negative PCR FLU A (Negative); PCR FLU B Negative PCR FLU B (Negative); PCR RSV Negative PCR RSV (Negative); SARS PCR* Negative SARS-CoV-2 (Negative)
[2025-01-01 21:16] LABS: Slide Review Reflex No
--- OUTSIDE RECORDS SUMMARY | 2025-01-01 21:22 | XMS_ITS | Clinical Summary ---
Author Organization [facility] Address [address] [place] [address] Care Team Providers Care Ip Counsel Name Role Phone Unavailable Primary Care Provider Unavailabl e Source Comments Patient records contain information from all sites at [facility]. For routine questions regarding patient records, call [phone] during business hours, M-F 8:00 AM - 5:00 PM Central Time. Record requests for emergency care only can be directed to [phone] at any time.[facility] Allergies Active Allergy Reactions Criticality Noted Date Comments [place] Cough 03/13/2023 Mold Cough 03/13/2023 Medications albuterol 90 mcg/actuation inhaler Inhale 2 puffs. 0 Active aspirin [address] tablet Take 81 mg by mouth. 0 Active fluticasone propionate (Flovent HFA) 110 mcg/actuation inhaler Flovent HFA 110 mcg/actuation aerosol inhaler TAKE 1 PUFF BY MOUTH TWICE A DAY 2 Active metoprolol tartrate (LOPRESSOR) 25 mg tablet metoprolol tartrate 25 mg tablet TAKE 1 TABLET BY MOUTH TWICE A DAY 2 Active predniSONE (DELTASONE) 20 mg tablet 10 mg. Active rosuvastatin (CRESTOR) 20 mg tablet rosuvastatin 20 mg tablet 2 Active multivitamin tablet Take 1 tablet by mouth daily. 0 Active codeine-guaiFEN esin (ROBITUSSIN-AC) 10-100 mg/5 mL liquid TAKE 5-10 ML BY MOUTH AT BEDTIME IF NEEDED FOR COUGH. MAX DOSE 60 ML PER 24 HRS. Active fluticasone propion-[place] roL 250-50 mcg/dose diskus inhaler Inhale 1 puff 2 (two) times a day. 3 Active ipratropium-alb uteroL (DUONEB) 0.5-2.5 mg/3 mL nebulizer solution INHALE 3 ML VIA A NEBULIZER 4 TIMES DAILY IF NEEDED FOR SHORTNESS OF BREATH 1ST CHOICE. Active ipratropium-alb uteroL (DUONEB) 0.5-2.5 mg/3 mL nebulizer solution Inhale 3 mL 4 (four) times a day as needed for wheezing. 3 Active oxyBUTYnin (DITROPAN) 5 mg tablet 3 Active Active Problems Problem Noted Date Diagnosed [...] living? No 03/15/2023 Nutrition Answer Date Recorded On average, how many serving s of fruits and vegetables do you eat per day (serving size is equal to 1 cup or approximately the size of a tennis ball)? 3-5 03/15/2023 Dental Answer Date Recorded Dental: Regular Dentist Yes 03/15/20 Employment Answer Date Recorded Employment status Retired 03/15/2023 Housing Stability Answer Date Recorded What is your living situation today? I have a [facility] place to live 03/15/2023 Sex and Gender Information Value Date Recorded Sex Assigned at Male 03/15/2023 3:48 PM CDT Legal Sex Male 12:32 PM CDT Gender Identity Male 03/15/2023 3:48 PM CDT Sexual Orientation Straight 03/15/2023 3: 48 PM CDT Last Filed Vital Signs Vital Sign Reading Time Taken Comments Blood Pressure 123/66 03/16/2023 2:59 PM CDT Pulse 71 03/16/2023 2:59 PM CDT Temperature 35.8 C (96.5 F) 03/16/2023 2:59 PM CDT Respiratory Rate - - Oxygen Saturation 99% 01/24/2022 7:33 AM CDT Inhaled Oxygen Concentration - - Weight 97.3 kg (214 lb 6.4 oz) 03/16/2023 2:59 P M CDT Height - - Body Mass Index - - Plan of Treatment Health Maintenance Due Date Last Done Comments CT Colonography 1950 Cologuard 1950 Hepatitis C Screening 1950 Zoster Vaccines (1 of 2) 08/29/2013 07/04/2013 DTaP,Tdap,and Td Vaccines (2 - Td or Tdap) 12/20/2023 12/19/2013 COVID-19 Vaccine ( - season) 2024 08/10/2023, 06/27/2022, 07/16/2021, Additional history exists Influenza Vaccine (#1) 2024 , 05/07/2021, 05/02/2019, Additional history exists RSV vaccine - (32-36 weeks) or 60+ years (1 - 1-dose 75+ series) 2024 Depression Screening (Annual PHQ-2) 08/24/2024 Fall Risk Screen (Annual) 08/24/2024 Fasting Glucose for Diabetes Screening 12/13/2026 12/14/2023, 06/01/2023, 12/10/2022, Additional history exists Colonoscopy 02/10/2028 02/09/2023, 11/02/2014 Colorectal Cancer Surveillance 02/10/2028 Pneumococcal vaccine (50+ years) Completed 11/21/2016, 11/14/2015 Abdominal Aortic Aneurysm (AAA) Screen Completed 01/06/2022, 12/31/2021, 12/31/2021 HPV Vaccines Aged Out No longer eligi ble based on patient's age to complete this topic IPV Vaccines Aged Out No longer eligi ble based on patient's age to complete this topic Medical Devices Implanted Type Area Glue Sprayer Device Identifier Shelf Expiration Date Model / Serial / Lot Cardiac Valve Prosthesis Cardiac Valve Prosthesis Heart Insurance [facility]
--- OUTSIDE RECORDS SUMMARY | 2025-01-01 21:22 | XMS_ITS ---
Author Organization [facility] Address [address] [place] [address] Care Team Providers Care Supervisor Safety Deposit Name Role Phone Unavailable Primary Care Provider Unavailabl e Active Problems Problem Noted Date Diagnosed Date Primary Malignant Neoplasm Of Prostate Cancer Staging:Clinical stage from 12/18/2021:Stage IIIB(cT4, cN0, cM0, PSA: 52.3, Grade Group: 4) - Unsigned Current Treatment and Therapy Plans No current plan information found. Past Treatment and Therapy Plans No past plan information found. Past Radiation Episodes * IMRT: ProstateOverview* First Treatment Date Last Treatment Date Treatment Site Technique Goal Episode Provider 02/10/2022 03/18/2022 Prostate IMRT Curative * Linked Problems Primary Malignant Neoplasm O f Prostate Treatment Courses* Course 1xProstate 02/10/2022 - 03/18/2022 Treatment Period Fraction Dose Fractions Total Dose Plans Planned [id number] 02/10/2022 - 03/18/2022 270 cGy 7 ,020 cGy Reference Points Delivered [id number] 02/10/2022 - 03/18/2022 7,020 cGy
--- OUTSIDE RECORDS SUMMARY | 2025-01-01 21:22 | XMS_ITS | Clinical Summary ---
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 High frequency 024 Active nystatin powder (MYCOSTATIN) powderIndications:R allen Apply 1 Strip topically to affected area(s) three times daily. 60 g 5 024 Active calcitonin salmon, 200 units per actuation, nasal (MIACALCIN, FORTICAL) 200 unit/actuation nasal sprayIndications:Co mpression fracture of L1 vertebra, initial encounter (HC) Inhale 1 [place] into affected nostril(s) once daily. Alternating nostrils [...] type, unspecified whether angina present, unspecified whether platinum or transplanted heart TAKE 1 TABLET BY [...] Description 12/30/2024 8:35 AM CDT Office Visit [facility] [address] [place] [address] Nela Andino PA Cough 12/29/2024 9:40 AM CDT Office Visit [facility] [address] [address] Bassem Torres MD Consult (Osteoporosis ) 12/29/2024 Travel 12/12/2024 Telephone [facility] [address] [place] [address] Jacquelyn Fleming PA Referral (Endocrinology) 12/08/2024 12:00 PM CDT Ancillary Procedure [facility] [address] [place] [facility] [address] 12/08/2024 11:05 AM CDT Office Visit [facility] [address] [place] [address] [place] [address] Nela Andino PA Cough 12/08/2024 Travel 11/18/2024 Orders Only [facility] [address] [place] [address] [facility] [place] [address] Nela Andino PA 1 scan: (1-Ord) NFLD-EKG-11/17/24 11/17/2024 9:50 AM CDT Office Visit [facility] [address] [place] [facility] [place] [address] Nela Andino PA Cough 11/17/2024 Travel 10/27/2024 9:10 AM DRIER AND GRINDER TENDER Telemedicine [facility] [address] [place] [address] Babs Martinez MD 10/27/2024 Travel 10/24/2024 10:15 AM DRIER AND GRINDER TENDER Ancillary Procedure [facility] [address] [place] [address] 10/24/2024 Orders Only [facility] [address] [place] [address] Yassine Loaiza PA <No scans attached> 10/24/2024 Orders Only [facility] [address] [place] [address] Yassine Loaiza PA <No scans attached> 10/24/2024 Orders Only [facility] [address] [place] [address] Yassine Loaiza PA <No scans attached> 10/18/2024 9:10 AM DRIER AND GRINDER TENDER Office Visit [facility] [address] [place] [place] [address] Jacquelyn Fleming PA Follow Up (Having painful tingling and tightness on outsides of both legs, keeping him up at night.); Cough (Productive cough is starting up again) 10/17/2024 Travel 10/10/2024 7:12 AM DRIER AND GRINDER TENDER - 10/10/2024 11:59 PM DRIER AND GRINDER TENDER Hospital Encounter [facility] [address] [facility] [place] [address] Jacquelyn Fleming PA Weakness of both lower extremities; Compression fracture of L1 vertebra with routine healing, subsequent encounter; Compression fracture of L2 lumbar vertebra, sequela; Compression fracture of L3 lumbar vertebra, sequela; Compression fracture of L5 vertebra, sequela 10/10/2024 Telephone [facility] [address] [place] [address] Jacquelyn Fleming PA Results 10/10/2024 Travel 10/04/2024 10:45 AM DRIER AND GRINDER TENDER Ancillary Procedure [facility] [address] [place] [address] 10/04/2024 10:10 AM DRIER AND GRINDER TENDER Office Visit [facility] [address] [place] [address] Jacquelyn Fleming PA Cough (Productive ); Wheezing; [...] on file Legal Sex Male 6:32 AM DRIER AND GRINDER TENDER Gender Identity Not on file Sexual Orientation Not on file 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 on file Not on file Not on fi le Obstetrics History Last Filed Vital Signs Vital Sign Reading Time Taken Comments Blood Pressure 158/95 12/30/2024 8:42 AM CDT Pulse 88 12/30/2024 8:42 AM CDT Temperature 36.4 C (97.5 F) 12/08/2024 10:59 AM CDT Respiratory Rate 16 10/08/2023 8:33 AM DRIER AND GRINDER TENDER Oxygen Saturation 95% 12/30/2024 8:42 AM CDT Inhaled Oxygen Concentration - - Weight 94.3 kg (208 lb) 12/29/2024 9:44 AM CDT Height 175.3 cm (5' 9) 12/14/2023 9:31 AM CDT Body Mass Index 30.72 12/14/2023 9:31 AM CDT Plan of Treatment Upcoming Encounters Date Type Department Care Team (Late st Contact Info) Description 01/06/2025 10:50 AM CDT Office Visit [facility] [address] [place] [address] Jacquelyn Fleming PA [address] [place] [address] Health Maintenance Due Date Last Done Comments [...] history exists Medical Devices Implanted Type Area Audit Manager Device Identifier Shelf Expiration Date Model / Serial / Lot Valve Aortic 27mm Inspirus Resilia Tissue - [id number] Implanted:Qty: 1 on 10/05/2020 by Darshan Cavanaugh MD at [facility] N/A: Aortic Valve Med[employer] 05/03/2024 [id number] / [id number] / Description:No rinse needed per clinical rn Procedures Procedure Name Priority Date/Time Associated Diagnosis [...] 11:05 AM CDT PVC (premature ventricular contraction) NH READING EKG - NO CHARGE, COMP ONLY Routine 11/18/2024 11:04 AM CDT PVC (premature ventricular contraction) XR SPINE THORACOLUMBAR JUNCTION MINIMUM OF 2 VIEWS Routine 10/24/2024 10:20 AM DRIER AND GRINDER TENDER Closed wedge compression fracture of L4 vertebra with delayed healing, subsequent encounter MR SPINE LUMBAR WO STAT 10/10/2024 7: 42 AM DRIER AND GRINDER TENDER Weakness of both lower extremities Compression fracture of L1 vertebra with routine healing, subsequent encounter Compression fracture of L2 lumbar vertebra, sequela Compression fracture of L3 lumbar vertebra, sequela Compression fracture of L5 vertebra, sequela CBC WITH AUTO DIFFERENTIAL Routine 10/04/2024 11:33 AM DRIER AND GRINDER TENDER Weakness of both lower extremities Compression fracture of L1 vertebra with routine healing, subsequent encounter Compression fracture of L2 lumbar vertebra, sequela Compression fracture of L3 lumbar vertebra, sequela Compression fracture of L5 vertebra, sequela SEDIMENTATION RATE Routine 10/04/2024 11 :33 AM DRIER AND GRINDER TENDER Weakness of both lower extremities Compression fracture of L1 vertebra with routine healing, subsequent encounter Compression fracture of L2 lumbar vertebra, sequela Compression fracture of L3 lumbar vertebra, sequela Compression fracture of L5 vertebra, sequela C-REACTIVE PROTEIN Routine 10/04/2024 11 :33 AM DRIER AND GRINDER TENDER Weakness of both lower extremities Compression fracture of L1 vertebra with routine healing, subsequent encounter Compression fracture of L2 lumbar vertebra, sequela Compression fracture of L3 lumbar vertebra, sequela Compression fracture of L5 vertebra, sequela CK TOTAL Routine 10/04/2024 11:33 AM DRIER AND GRINDER TENDER Weakness of both lower extremities Compression fracture of L1 vertebra with routine healing, subsequent encounter Compression fracture of L2 lumbar vertebra, sequela Compression fracture of L3 lumbar vertebra, sequela Compression fracture of L5 vertebra, sequela COMP METABOLIC PANEL Routine 10/04/2024 11:33 AM DRIER AND GRINDER TENDER Weakness of both lower extremities Compression fracture of L1 vertebra with routine healing, subsequent encounter Compression fracture of L2 lumbar vertebra, sequela Compression fracture of L3 lumbar vertebra, sequela Compression fracture of L5 vertebra, sequela XR SPINE LUMBAR 3 VIEWS Routine 10/04/2024 10:58 AM DRIER AND GRINDER TENDER Weakness of both lower extremities LIPID PANEL W REFLEX MEASURED LDL Routine 12/14/2023 10:26 AM CDT Coronary artery disease, unspecified vessel or lesion type, unspecified whether angina present, unspecified whether platinum or transplanted heart COLONOSCOPY SCREENING Routine 02/09/2023 12:00 AM CDT Diverticulosis ANTI HCV Routine 12/02/2021 8:17 AM CDT Need for hepatitis C screening test from Last 3 Months or Most Recently Relevant to Health Maintenance Results * VITAMIN D [VQC068B] (12/30/2024 9:25 AM CDT) VITAMIN D,25-OH,TOTAL,IA 45 30 - 100 ng/mL [facility] Comment: Vitamin D Status 25-OH Vitamin D: Deficiency: <20 ng/mL Insufficiency: 20 - 29 ng/mL Optimal: > or = 30 ng/mL For 25-OH Vitamin D testing on patients on D2-supplementation and patients for whom quantitation of D2 and D3 fractions is required, the [facility](TM) 25-OH VIT D, (D2,D3), LC/MS/MS is recommended: order code 05055 (patients >2yrs). See Note 1 Note 1 For additional information, please refer to http://education.Ateeda/faq/LPZ974 (This link is being provided for informational/ educational purposes only.) Blood BLOOD SPECIMEN / Unknown 12/30/2024 9:25 AM CDT 12/30/2024 9:26 AM CDT us Bassem Torres MD SEND OUTS Final Result [facility] [address] [place] [address], [facility] [address] [place] [address] * CREATININE [23458.2] (12/30/2024 9:25 AM CDT) CREATININE 0.85 0.70 - 1.28 mg/dL [facility] EGFR 91 > OR = 60 mL/min/1.73 m2 [facility] Blood BLOOD SPECIMEN / Unknown 12/30/2024 9:25 AM CDT 12/30/2024 9:26 AM CDT us Bassem Torres MD CHEMISTRY Final Result [facility] [address] [place] [address], [facility] [address] [place] [address] * CALCIUM [29369.0] (12/30/2024 9:25 AM CDT) CALCIUM 9.2 8.6 - 10.3 mg/dL [facility] Blood BLOOD SPECIMEN / Unknown 12/30/2024 9:25 AM CDT 12/30/2024 9:26 AM CDT us Bassem Torres MD CHEMISTRY Final Result Performing Organization Address City/[facility]/ZIP Co de Phone Number [facility] [address] [place] [address], [facility] [address] [place] [address] * XR CHEST 2 VIEWS PA AND [...] MOLECULAR Negative Negative 12/08/2024 11:13 PM CDT [facility] Comment:All PCR tests are hui bject to false negative result due to variability in viral load and collection technique. A negative result does not rule out a SARS-CoV-2 infection. Clinical correlation required. INFLUENZA A PCR Negative 11:13 PM CDT [facility] INFLUENZA B PCR Negative 11:13 PM CDT [facility] Respiratory Syncytial Virus Negative 12/08/2024 11:13 PM CDT [facility] Swab NASOPHARYNGEAL SWAB / Unknown Non-Blood / Unknown 12/08/2024 11:45 AM CDT 12/08/2024 11:45 AM CDT Nela RICE MICROBIOLOGY Final Result [facility] [address] [place] [address], * EKG 12 LEAD (11/18/2024 11:05 AM CDT) us Nela RICE EKG ORD Final Result * NH READING EKG - NO CHARGE, COMP ONLY (11/18/2024 11:04 AM CDT) us Nela RICE PB - PROVIDER READINGS Final Result * XR SPINE THORACOLUMBAR JUNCTION MINIMUM OF 2 VIEWS (10/24/2024 10:20 AM DRIER AND GRINDER TENDER) Anatomical Region Laterality Modality Spine, THORACIC SPINE Digital Ra diography 10/24/2024 3:54 PM DRIER AND GRINDER TENDER Narrative 10/24/2024 3:54 PM DRIER AND GRINDER TENDER For Patients: As a result of [...] MR SPINE LUMBAR WO (10/10/2024 7:42 AM DRIER AND GRINDER TENDER) Anatomical Region Laterality Modality Spine, LUMBAR SPINE Magnetic Res onance 10/10/2024 8:28 AM DRIER AND GRINDER TENDER Narrative 10/10/2024 8:28 AM DRIER AND GRINDER TENDER For Patients: As a result of [...] * (ABNORMAL) SEDIMENTATION RATE (10/04/2024 11:33 AM DRIER AND GRINDER TENDER) SED RATE BY MODIFIED NAYANREN 22(H) < OR = 20 mm/h [facility] Blood BLOOD SPECIMEN / Unknown 10/04/2024 11:33 AM DRIER AND GRINDER TENDER 10/04/2024 11:33 AM DRIER AND GRINDER TENDER us Jacquelyn RICE HEMATOLOGY Final R esult [facility] [address] [place] [address], [facility] [address] [place] [address] * (ABNORMAL) C-REACTIVE PROTEIN (10/04/2024 11:33 AM DRIER AND GRINDER TENDER) [facility] C-REACTIVE PROTEIN 27.8(H) <8.0 mg/L [facility] Blood BLOOD SPECIMEN / Unknown 10/04/2024 11:33 AM DRIER AND GRINDER TENDER 10/04/2024 11:33 AM DRIER AND GRINDER TENDER Jacquelyn RICE CHEMISTRY Final R esult [facility] [address] [place] [address], [facility] [address] [place] [address] * (ABNORMAL) CBC AND DIFFERENTIAL (10/04/2024 11:33 AM DRIER AND GRINDER TENDER) [facility] WHITE BLOOD CELL COUNT 10.7 3.8 [...] BLOOD SPECIMEN / Unknown 10/04/2024 11:33 AM DRIER AND GRINDER TENDER 10/04/2024 11:33 AM DRIER AND GRINDER TENDER Jacquelyn RICE HEMATOLOGY Final R esult [facility] [address] [place] [address], [place] [phone] [facility] [address] [place] [address] * CK TOTAL (10/04/2024 11:33 AM DRIER AND GRINDER TENDER) CREATINE KINASE, TOTAL 23 19 - 278 U/L [facility] Blood BLOOD SPECIMEN / Unknown 10/04/2024 11:33 AM DRIER AND GRINDER TENDER 10/04/2024 11:33 AM DRIER AND GRINDER TENDER Jacquelyn RICE CHEMISTRY Final R esult [facility] [address] [place] [address], [place] [phone] [facility] [address] [place] [address] * COMP METABOLIC PANEL (10/04/2024 11:33 AM DRIER AND GRINDER TENDER) Pathologist [facility] GLUCOSE 90 65 - 99 mg/dL [facility] [...] BLOOD SPECIMEN / Unknown 10/04/2024 11:33 AM DRIER AND GRINDER TENDER 10/04/2024 11:33 AM DRIER AND GRINDER TENDER us Jacquelyn RICE CHEMISTRY Final R esult [facility] [address] [place] [address], [facility] [address] [place] [address] * XR SPINE LUMBAR 3 VIEWS (10/04/2024 10:58 AM DRIER AND GRINDER TENDER) Anatomical Region Laterality Modality LUMBAR SPINE Computed Radiogr aphy 10/04/2024 11:1 8 AM DRIER AND GRINDER TENDER Impressions 10/04/2024 11:18 AM DRIER AND GRINDER TENDER Multiple compression deformities lumbar spine, most of which are chronic although there is increased compression of L4 since the prior study. Dictated by Nikos Bright MD @ 10/04/2024 11:18:42 AM (Electronically Signed) Narrative 10/04/2024 11:18 AM DRIER AND GRINDER TENDER For Patients: As a result of [...] - 199 mg/dL 12/14/2023 7:17 PM CDT [facility] Comment: Cholesterol, Total Reference Ranges Desirable <200 mg/dL Borderline 200-239 mg/dL High >=240 mg/dL TRIGLYCERIDES 101 <150 mg/dL 12/14/2023 7:17 PM CDT [facility] HDL CHOLESTEROL 57 >40 mg/dL 7:17 PM CDT [facility] NON-HDL CHOLESTEROL 101 <145 mg/dl 12/14/2023 7:17 PM CDT [facility] CHOL/HDL RATIO 2.77 <4.50 12/14/2023 7:17 PM CDT [facility] LDL CHOLESTEROL 81 <=130 mg/dL 12/14/2023 7:17 PM CDT [facility] VLDL CHOLESTEROL 20 <=30 mg/dL 12/14/2023 7:17 PM CDT [facility] PROVIDER ORDERED STATUS RANDOM 12/14/2023 7:17 PM CDT [facility] Blood BLOOD SPECIMEN / Unknown Venipuncture / Unknown 12/14/2023 10:26 AM CDT 12/14/2023 10:26 AM CDT us Jacquelyn RICE CHEMISTRY Final R esult [facility] [address] [place] [address], * COLONOSCOPY SCREENING [[id number]] (02/09/2023 12:00 AM CDT) us Jacquelyn RICE GI PROCEDURE ORD Final Result * ANTI HCV (12/02/2021 8:17 AM CDT) HEPATITIS C ANTIBODY Non-React guero Non-React guero 12/02/2021 5:53 PM CDT [facility] Comment:Antibodies to HCV no t detected; does not exclude the possibility of exposure to HCV. Blood BLOOD SPECIMEN / Unknown Venipuncture / Unknown 12/02/2021 8:17 AM CDT 12/02/2021 8:18 AM CDT us Jacquelyn RICE SEND OUTS Final R esult [facility] [address] [place] [address], from Last 3 Months or Most Recently Relevant to Health Maintenance Insurance [facility] MEDICARE PB ONLY MEDICARE PART A HB ONLY MEDICARE PART B HB ONLY Member Subscriber Plan / Payer (Ef fective 2014-Present) Name:Faizan Simon Member ID:[id number] Relation to Subscriber:Self Name:Faizan Simon Subscriber ID:[id number] Payer ID:Not on file Group ID:Not on file Type:Not on file Address: ATTN: CLAIMS [address] [place] [id number] [place] [address] Advance Directives * Full Code (Latest Code Status on File) Date Activated Date Inactivated Comments 10/05/2020 6:34 AM 10/10/2020 2:00 PM preop Question Answer Comments Code Status Discussion: Other (specify in commen ts): Care Teams Flume Ride Operator Relationship Specialty Start Date End Date Jacquelyn Fleming PA [address] [place] [address] PCP - General Physician Reduction Plant Supervisor 07/25/22 Stone He MD [address] [address] Surgery - Urology 07/25/22 Edgar Meier MD [address] [place] [address] Internal Medicine 07/25/22 [place] [address] [place] [address] Pulmonology Pulmonary Medicine 10/08/23 [place] [address] [place] [address] Endocrinology Endocrinology 12/29/24
[2025-01-01 21:27] LABS: Chloride* 105 mmol/L (96-114); Potassium* 4.2 mmol/L (3.6-5.1); Sodium* 139 mmol/L (135-149)
[2025-01-01 21:30] LABS: Anion Gap 7 mEq/L (7-15); Blood Urea Nitrogen* 16 mg/dL (7-30); Calcium* 9.2 mg/dL (8.4-10.6); Carbon Dioxide* 27 mmol/L (20-32); Creatinine* 0.9 mg/dL (0.5-1.5); Est. Creatinine Clearance* 63.83; Estimated Glomerular Filt Rate 89 ml/min; Glucose* 114 mg/dL (60-115); Magnesium* 1.7 mg/dL (1.5-2.6)
[2025-01-01 21:40] LABS: NT Pro B Type NatriureticPept* 1600 pg/mL
--- NOTE | 2025-01-01 23:28 | PM.IMHP1 ---
Assessment and Plan Assessment and plan (1) Chronic obstructive pulmonary disease with acute exacerbation: Problem comment: - steroid burst, complete Z-Yann therapy started 2 days ago, intensification of bronchodilator therapy Status: Acute (2) Acute hypoxemic respiratory failure: Problem comment: - oxygen supplementation is needed for now and treat underlying COPD exacerbation Status: Acute (3) Chronic obstructive pulmonary disease (COPD): Problem comment: - 11/03/23: FVC reduced; FEV1 and FEV1:FVC ratio normal; no bronchodilator response. Lung volumes reduced. Diffusion capacity reduced. Mild restriction and mildly reduced diffusion capacity. Compared to PFTs 12/23/13, FEV1 and FVC have decreased. 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?intensity modulated radiation therapy to a dose of 70.2 Gy in 26 fractions to the prostate and seminal vesicles and along with pelvic lymph nodes between 02/03/2022-03/18/2022?03/10/2022 Zytiga started along with Lupron shots?09/2022 he was switched from Zytiga to Elrleada due to insurance reasons--> concluded androgen deprivation therapy in December 2023, January 2024 with Lupron shots and erleada (2 years) Status: Acute Plan 1. Reviewed impression, plan, recommendations with patient 2. Answered his questions 3. Patient is agreeable with above stated plans and recommendations Total Time Spent Total Time Spent: 65 minutes Hospitalist- H&P: HPI History of Present Illness Date Seen: 01/01/25 Chief complaint: Shortness of Breath Narrative: Faizan Simon is a 74 year old man was in his usual state of health until 1 week ago when he started having a sense of congestion in his airways. Has underlying COPD. Continue to take his usual medications. Condition gradually worsened. Two days ago was seen in urgent care and prescribed a Z-Yann and Claritin without relief. Presents today with worsening congestion, cough, wheezing, shortness of breath. Denies fevers, rigors, diaphoresis. Historically has been treated with prednisone briefly for COPD exacerbations with excellent response. In the emergency department responded well to bronchodilator nebulizer therapy. Was given prednisone as well. Despite these efforts however he continued to have hypoxia. At rest his oxygen saturations were ranging 88-90%. At rest and speaking his saturations dropped into the 86-87% range. Patient agreeable to hospital admission for observation as we continue with treatment efforts for COPD exacerbation. Review of Systems Status of ROS: Reports: 6 or more systems reviewed and unremarkable except as noted in History and below Narrative: Denies angina or anginal equivalent, syncope or near syncope, nausea or vomiting, palpitations, diaphoresis. Denies fevers, rigors. Lives at home with his . 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 Worked with a lot of concrete an asphalt. Quit smoking 35 years ago, previously smoked 1 pack per day. Quit drinking alcohol 35 years ago. [facility] Medical History (Updated 01/01/25 @ 23:36 by Jere Cox MD) English's lung ?J67.0 - English's lung (ICD-10) Pulmonary infection ?J18.9 - Pneumonia, unspecified organism (ICD-10) Primary malignant neoplasm of prostate ?C61 - Malignant neoplasm of prostate (ICD-10) Bicuspid aortic valve ?Q23.1 - Congenital insufficiency of aortic valve (ICD-10) Chronic obstructive pulmonary disease (COPD) ?J44.9 - Chronic obstructive pulmonary disease, unspecified (ICD-10) Asthma ?J45.909 - Unspecified asthma, uncomplicated (ICD-10) Surgical wound dehiscence ?T81.31XA - Disruption of external operation (surgical) wound, not elsewhere classified, initial encounter (ICD-10) Thoracic aortic ectasia ?I77.810 - Thoracic aortic ectasia (ICD-10) Colon polyp ?K63.5 - Polyp of colon (ICD-10) Essential hypertension ?I10 - Essential (primary) hypertension (ICD-10) Pulmonary fibrosis ?J84.10 - Pulmonary fibrosis, unspecified (ICD-10) [place]' lung ?J67.0 - English's lung (ICD-10) Adenocarcinoma of prostate (~11/2021) ?C61 - Malignant neoplasm of prostate (ICD-10) Surgical History H/O aortic valve replacement with tissue graft ?Z95.4 - Presence of other heart-valve replacement (ICD-10) Hx laparoscopic cholecystectomy ?Z90.49 - Acquired absence of other specified parts of digestive tract (ICD-10) History of incisional hernia repair (~2010) ?Z98.890 - Other specified postprocedural states (ICD-10) ?Z87.19 - Personal history of other diseases of the digestive system (ICD-10) H/O aortic valve replacement (~09/2020) ?Z95.2 - Presence of prosthetic heart valve (ICD-10) Family History Brother Alcohol use disorder Brain aneurysm Diabetes Father Prostate cancer Diabetes Heart disease Sister Diabetes Social History What is your current living situation?: I presently have a place to live Problems where you live: no known problems Problems where you live details: none In the past 12 months, utilities in danger of being shut off: no In past 12 months, lack of transportation kept you from medical appts, meetings, work, or getting things needed for daily living: no In the past 12 mos, have been you worried that your food would run out before you had money to buy more?: never true In the past 12 mos, the food you bought just didn't last and you didn't have money to buy more?: never true Smoking Status: Former smoker Do you use any of these nicotine containing products: None Second hand tobacco smoke exposure: No How often do you have a drink containing alcohol: never How often do you have six or more drinks on one occasion: Never AUDIT-C Alcohol total score: 0 Non-prescribed substance use: denies use How often does anyone, including family, friends and others, physically hurt you: never How often does anyone, including family, friends and others, insult or talk down to you: never How often does anyone, including family, friends and others, threaten you with harm: never How often does anyone, including family, friends and others, scream or curse at you: never service: Yes Meds Home Medications and Allergies Home Medications ?Medication ?Instructions ?Recorded ?Confirmed ?Type metoprolol tartrate 25 mg tablet 25 mg PO BID 04/07/22 07/27/24 History multivitamin 1 tab PO QAM 04/07/22 07/27/24 History albuterol sulfate 90 mcg/actuation 2 puff inhalation Q4H PRN wheezing 11/04/23 07/27/24 History aerosol inhaler (Ventolin HFA) aspirin 81 mg tablet,delayed 81 mg PO DAILY 11/04/23 07/27/24 History release (Adult Low Dose Aspirin) ipratropium 0.5 mg-albuterol 3 mg 3 ml inhalation QID PRN dyspnea 11/04/23 07/27/24 History (2.5 mg base)/3 mL nebulization soln rosuvastatin 20 mg tablet 20 mg PO HS 11/04/23 07/27/24 History umeclidinium 62.5 mcg-vilanterol 1 inh inhalation DAILY 11/04/23 07/27/24 History 25 mcg/actuation powdr for inhalation (Anoro Ellipta) acetaminophen 500 mg tablet 1,000 mg PO TID PRN 11/09/23 07/27/24 History nabumetone 500 mg tablet 500 mg PO BID 04/20/24 07/27/24 History Allergies Allergy/AdvReac Type Severity Reaction Status Date / Time oxybutynin AdvReac Mild Verified 07/27/24 10:10 Exam Narrative: Exam Narrative: I examined patient in his hospital room. Congested, wheezing breathing. Appears comfortable. Articulate and cooperative. Alert and oriented x4. Lungs with inspiratory and expiratory wheezing and rhonchi. No rales. Distant heart tones. Regular rhythm with occasional extra beat. Abdomen with active bowel sounds, soft. Extremities without edema. Independent with transfer, station, gait. Const: Vital Signs, click to edit/add: Vital Signs - 24 hr 01/01/25 20:27 01/01/25 20:39 01/01/25 20:45 Temperature 97.9 F Pulse Rate 99 88 Pulse Rate [Pulse Oximeter] 98 Respiratory Rate 24 33 H 30 H Blood Pressure [Ri ght Upper Arm] 157/85 H Pulse Oximetry 92 90 92 Oxygen Delivery Me thod Room Air 05/11/25 21:00 01/01/25 21:15 01/01/25 21:27 Temperature Pulse Rate 83 80 Pulse Rate [Pulse Oximeter] Respiratory Rate 17 23 Blood Pressure [Ri ght Upper Arm] Pulse Oximetry 89 90 92 Oxygen Delivery Sc thod Hospitalist - H&P: Result Labs Labs: Short CBC 01/01/25 Range/Units 21:05 WBC 9.20 (4.50-11.00) K/uL Hgb 13.1 L (13.5-17.5) gm/dL Hct 39.8 (37.0-53.0) % Plt Count 151 (140-440) K/uL BMP 01/01/25 21:05 Sodium 139 Potassium 4.2 Chloride 105 Carbon Dioxide 27 BUN 16 Creatinine 0.9 Glucose 114 Calcium 9.2 ECG ECG interpretation date: 01/01/25 Interpretation: Normal sinus rhythm. Occasional APC. Imaging CT scan - chest: Attestation: I have reviewed the pertinent imaging results. Radiologist's impression: Findings: Lungs: Fibrotic pulmonary disease felt to be not significantly changed from prior examination with no new areas of consolidation appreciated. Mediastinum: No acute abnormality appreciated. Postoperative changes to the aortic valve. Calcified atherosclerosis. Lymph nodes: No gross lymphadenopathy. Upper abdomen: Cholecystectomy. Soft tissues: No acute abnormality appreciated. Bones: No acute abnormality appreciated. Median sternotomy wires. Spondylosis. Impression: Interstitial fibrosis, unchanged from 2023, with no acute abnormality appreciated.
[2025-01-01] MEDS: IPRAT-ALBUT 0.5-2.5 MG/3 ML NEB 1 NEB IH (23:29)
[2025-01-01] MEDS: GABAPENTIN 300 MG CAPSULE PO (23:36)
[2025-01-02] VITALS (11 sets, daily range): BP systolic 126–160; BP diastolic 73–92; PULSE 79–104; RESP 20–28; TEMP 35.8–36.8; O2SAT 88–94
[2025-01-02] MEDS: 0.9 % SODIUM CHLORIDE 500 ML 500 ML IV (00:09)
[2025-01-02] MEDS: 0.9 % SODIUM CHLORIDE 1000 ml 1,000 ML 125 ML IV (00:09)
[2025-01-02] MEDS: ALBUTEROL SULFATE 2.5 MG/3 ML VIAL.NEB NEB (01:15)
[2025-01-02] MEDS: IPRAT-ALBUT 0.5-2.5 MG/3 ML NEB 1 NEB IH ×5 (03:58→20:18)
[2025-01-02 06:35] LABS: HCO3 VBG 26 mmol/L (21-28); Lactate* 0.9 mmol/L (0.5-1.9); PCO2 VBG 44 mmHG (40-50); pH VBG 7.384 (7.32-7.43)
--- NOTE | 2025-01-02 06:52 | PC.NURSE ---
End of shift report: Pt was admitted this shift at 2225. VSS. Afebrile. Pt requiring 0-1 L?overnight?to maintain O2 sats above 88%. MD ordered fluids, designer/writer noted pt was having increased SOB after exertion, MD contacted, and fluids discontinued. Pt states his shortness of breath has improved since admission, PRN nebs offered and given. Pt ambulates SBA with cane to BR. Pt remains resting in bed, call light within reach.?
[2025-01-02 06:58] LABS: Magnesium* 1.7 mg/dL (1.5-2.6)
[2025-01-02] MEDS: predniSONE 20 MG TABLET 40 MG PO (07:48)
[2025-01-02] MEDS: SODIUM CHLORIDE 0.9 % (FLUSH) 10 ML SYRINGE 5 ML IVF ×2 (08:46→20:35)
[2025-01-02] MEDS: ASPIRIN 81 MG TABLET EC PO (08:46)
[2025-01-02] MEDS: BUDESONIDE 0.5 MG/2ML NEB NEB ×2 (08:46→20:35)
[2025-01-02] MEDS: METOPROLOL TARTRATE 25 MG TABLET PO ×2 (08:46→20:29)
[2025-01-02] MEDS: AZITHROMYCIN 250 MG TABLET PO (08:46)
--- NOTE | 2025-01-02 10:12 | PC.SOCIAL ---
Media Director Initial Check-In: SW met with patient and patient's and introduced SW role. Patient and patient's state right now they are doing well and have no concerns or questions for SW. SW to assist if needs arise.
--- NOTE | 2025-01-02 12:05 | P.IMPN_ITS ---
Assessment and Plan Assessment and plan (1) Acute hypoxemic respiratory failure: Problem comment: - oxygen supplementation is needed for now and treat underlying COPD exacerbation - 01/02 Continuing to require supplemental O2. Wean as able. May be able to discharge home tomorrow. Status: Acute (2) Chronic obstructive pulmonary disease with acute exacerbation: Problem comment: - steroid burst, complete Z-Yann therapy started 2 days ago, intensification of bronchodilator therapy - Persistent wheezing and need for supplemental oxygen. Continue steroid burst, azithromycin. Schedule duonebs. Continue prn albuterol nebs. Appreciate RT evaluation and recommendations. Anticipate will need to stay tonight yet, maybe home tomorrow. Status: Acute (3) Chronic obstructive pulmonary disease (COPD): Problem comment: - 11/03/23: FVC reduced; FEV1 and FEV1:FVC ratio normal; no bronchodilator response. Lung volumes reduced. Diffusion capacity reduced. Mild restriction and mildly reduced diffusion capacity. Compared to PFTs 12/23/13, FEV1 and FVC have decreased. 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 He?intensity modulated radiation therapy to a dose of 70.2 Gy in 26 fractions to the prostate and seminal vesicles and along with pelvic lymph nodes between 02/03/2022- 03/18/2022?03/10/2022 Zytiga started along with Lupron shots?09/2022 he was switched from Zytiga to Elrleada due to insurance reasons--> concluded androgen deprivation therapy in December 2023, January 2024 with Lupron shots and erleada (2 years) Status: Chronic Subjective Time Seen by Provider: 08:42 Date Seen: 01/02/25 Interval history: Maury tells me he feels better than when he came in. He is still audibly wheezing this morning. He has not tried walking in the hallway yet, just to the bathroom and back. His came in as I was leaving, and I stayed to answer any questions she had. They were in agreement with him staying yet today. Exam Narrative: Exam Narrative: General: Mild respiratory distress. He desatted to 87% while talking to me while on 1 L oxygen via nasal cannula. Awake, alert, oriented x3. No pallor. No jaundice. Oropharynx: Clear. Mucous membranes moist. Cardiovascular: Regular rate and rhythm. No murmurs, gallops, or rubs. Respiratory: Expiratory wheezes and rhonchi throughout. No crackles. Abdomen: Bowel sounds present. Soft, nondistended, nontender. Extremities: No lower extremity edema. Const: Vital Signs, click to edit/add: Vital Signs - 24 hr 01/01/25 20:27 01/01/25 20:39 01/01/25 20:45 Temperature 97.9 F Pulse Rate 99 88 Pulse Rate [Left R adial] Pulse Rate [Pulse Oximeter] 98 Respiratory Rate 24 33 H 30 H Blood Pressure [Ri ght Arm] Blood Pressure [Ri ght Upper Arm] 157/85 H Pulse Oximetry 92 90 92 Oxygen Delivery Me thod Room Air Oxygen Flow Rate 01/01/25 21:00 01/01/25 21:15 01/01/25 21:27 Temperature Pulse Rate 83 80 Pulse Rate [Left R adial] Pulse Rate [Pulse Oximeter] Respiratory Rate 17 23 Blood Pressure [Ri ght Arm] Blood Pressure [Ri ght Upper Arm] Pulse Oximetry 89 90 92 Oxygen Delivery Me thod Oxygen Flow Rate 01/01/25 22:25 01/01/25 23:43 01/02/25 01:04 Temperature 97.9 F Pulse Rate 88 Pulse Rate [Left R adial] Pulse Rate [Pulse Oximeter] 85 Respiratory Rate 22 22 Blood Pressure [Ri ght Arm] 152/96 H Blood Pressure [Ri ght Upper Arm] Pulse Oximetry 93 93 Oxygen Delivery Me thod Room Air Room Air Oxygen Flow Rate 01/02/25 03:00 01/02/25 04:40 01/02/25 07:00 Temperature 97.8 F 96.5 F L Pulse Rate Pulse Rate [Left R adial] 85 Pulse Rate [Pulse Oximeter] 79 94 Respiratory Rate 20 28 H Blood Pressure [Ri ght Arm] 144/92 H 146/92 H Blood Pressure [Ri ght Upper Arm] Pulse Oximetry 91 88 94 Oxygen Delivery Me thod Room Air Nasal Cannula Nasal Cannula Oxygen Flow Rate 1 01/02/25 07:00 01/02/25 07:00 01/02/25 09:30 Temperature Pulse Rate 85 Pulse Rate [Left R adial] 85 Pulse Rate [Pulse Oximeter] 94 Respiratory Rate 28 H Blood Pressure [Ri ght Arm] Blood Pressure [Ri ght Upper Arm] Pulse Oximetry 92 Oxygen Delivery Me thod Nasal Cannula Oxygen Flow Rate 0.5 01/02/25 11:00 Temperature 96.8 F L Pulse Rate Pulse Rate [Left R adial] 85 Pulse Rate [Pulse Oximeter] Respiratory Rate 24 Blood Pressure [Ri ght Arm] 126/73 Blood Pressure [Ri ght Upper Arm] Pulse Oximetry 93 Oxygen Delivery Me thod Room Air Oxygen Flow Rate Labs Labs: Laboratory Results - last 24 hr 01/01/25 01/01/25 01/02/25 20:25 21:05 04:00 WBC 9.20 RBC 4.23 L Hgb 13.1 L Hct 39.8 MCV 94 MCH 31 MCHC 33 RDW Coeff of Jose 12.9 Plt Count 151 Neut % (Auto) 59.1 Lymph % (Auto) 12.1 L [place] % (Auto) 10.7 Eos % (Auto) 17.2 H Baso % (Auto) 0.8 Neut # (Auto) 5.45 Lymph # (Auto) 1.10 [place] # (Auto) 1.00 H Eos # (Auto) 1.60 H Baso # (Auto) 0.07 Abs Immat Gran (auto) 0.01 Imm/Tot Granulo (auto) 0.1 VBG pH 7.374 VBG pCO2 48 VBG pO2 41.0 VBG HCO3 28 Sodium 139 Potassium 4.2 Chloride 105 Carbon Dioxide 27 Anion Gap 7 BUN 16 Creatinine 0.9 Estimated Creat Clear 63.83 Estimated GFR 89 Glucose 114 Lactate Calcium 9.2 Magnesium 1.7 1.7 NT-Pro-B Natriuret Pep 1600 SARS-CoV-2 (PCR) Negative SARS-CoV-2 Influenza Type A (PCR) Negative PCR FLU A Influenza Type B (PCR) Negative PCR FLU B RSV (PCR) Negative PCR RSV 01/02/25 06:05 WBC RBC Hgb Hct MCV MCH MCHC RDW Coeff of Jose Plt Count Neut % (Auto) Lymph % (Auto) [place] % (Auto) Eos % (Auto) Baso % (Auto) Neut # (Auto) Lymph # (Auto) [place] # (Auto) Eos # (Auto) Baso # (Auto) Abs Immat Gran (auto) Imm/Tot Granulo (auto) VBG pH 7.384 VBG pCO2 44 VBG pO2 72.0 H VBG HCO3 26 Sodium Potassium Chloride Carbon Dioxide Anion Gap BUN Creatinine Estimated Creat Clear Estimated GFR Glucose Lactate 0.9 Calcium Magnesium NT-Pro-B Natriuret Pep SARS-CoV-2 (PCR) Influenza Type A (PCR) Influenza Type B (PCR) RSV (PCR)
--- NOTE | 2025-01-02 16:23 | RESP.RT ---
Pt seen per consult. Requiring 1L at times of oxygen for activity. Encourage walking in hallway. Will evaluate need for oxygen tomorrow or see how fast he can compensate when he desaturates. Note that VBG shows him to be over oxygenated. Pt with BBS with scattered Rhonchi and wheezing today. Provider agrees to neb therapy around the clock. Pt does see pulmonology. Encourage him to stay in contact with that provider. Pt. with pulmonary fibrosis diagnosis, may benefit from vest therapy on out pt qualification via pulmonary provider.
--- NOTE | 2025-01-02 18:05 | PC.NURSE ---
Patient received nebulizers as ordered. Patients Lung sounds have expiratory wheezes throughout and is coughing tenacious yellow sputum. Patient is SOB with any activity and is currently 92% on Room air.
[2025-01-02] MEDS: ROSUVASTATIN CALCIUM 10 MG TABLET 20 MG PO (20:30)
[2025-01-02] MEDS: GABAPENTIN 300 MG CAPSULE PO (20:30)
[2025-01-02] MEDS: ENOXAPARIN 30 MG/0.3ML INJ SUBCUT (20:34)
[2025-01-03 00:10] VITALS: BP 134/80; PULSE 95; RESP 20; TEMP 36.5; O2SAT 93
[2025-01-03] MEDS: IPRAT-ALBUT 0.5-2.5 MG/3 ML NEB 1 NEB IH ×4 (00:10→12:16)
[2025-01-03 04:41] VITALS: BP 133/88; PULSE 93; RESP 18; TEMP 36.8; O2SAT 96
--- NOTE | 2025-01-03 05:42 | PC.NURSE ---
Pt is alert and oriented x3. On Room Air. Pt reports some discomfort from coughing but no pain. Pt lung sounds continue to have inspiratory and expiratory wheezing and a productive cough with yellow thick sputum. Pt is up Ind to bathroom but still has some SOB with exertion.?
[2025-01-03 07:00] VITALS: PULSE 91; PULSE 92; RESP 18; O2SAT 92
[2025-01-03 07:45] VITALS: BP 138/93; PULSE 91; RESP 18; TEMP 36.4; O2SAT 92
[2025-01-03] MEDS: predniSONE 20 MG TABLET 40 MG PO (07:49)
[2025-01-03] MEDS: METOPROLOL TARTRATE 25 MG TABLET PO (08:30)
[2025-01-03] MEDS: ASPIRIN 81 MG TABLET EC PO (08:30)
[2025-01-03] MEDS: AZITHROMYCIN 250 MG TABLET PO (08:30)
[2025-01-03] MEDS: SODIUM CHLORIDE 0.9 % (FLUSH) 10 ML SYRINGE 5 ML IVF (08:31)
[2025-01-03] MEDS: Umeclidinium-Vilanterol [Anoro Ellipta] 62.5-25 mcg/actuation 1 EACH IH (08:31)
[2025-01-03] MEDS: BUDESONIDE 0.5 MG/2ML NEB NEB (08:47)
--- NOTE | 2025-01-03 10:59 | PM.DS1 ---
DS: Providers Provider Time Seen by Provider: 10:15 Date Seen: 01/03/25 Date of admission: 01/02/25 08:55 Primary care physician: Jacquelyn Fleming PA-C Admitting Clinician: Jere Cox MD Consults: 01/01/25 23:19 Consult to Respiratory Therapy [CONS] Routine Comment: Reason(s) for RT Consult:: Consult Attending Physician on discharge: Jocelynn Beasley MD Date of Discharge: 01/03/25 DS: Diagnosis Discharge Diagnosis (1) Acute hypoxemic respiratory failure: Status: Acute Problem details: - oxygen supplementation is needed for now and treat underlying COPD exacerbation - 01/02 Continuing to require supplemental O2. Wean as able. May be able to discharge home tomorrow. - 01/03 off oxygen overnight (2) Chronic obstructive pulmonary disease with acute exacerbation: Status: Acute Problem details: - patient recalled that he had anhydrous ammonia exposure 1-2 days prior to onset of respiratory symptoms. This likely contributed to exacerbation. - steroid burst, complete Z-Yann therapy started 2 days ago, intensification of bronchodilator therapy - 01/02 Persistent wheezing and need for supplemental oxygen. Continue steroid burst, azithromycin. Schedule duonebs. Continue prn albuterol nebs. Appreciate RT evaluation and recommendations. Anticipate will need to stay tonight yet, maybe home tomorrow. - 01/03 Much improved, no longer needing supplemental oxygen, discharge home with nebs and po prednisone burst (3) Chronic obstructive pulmonary disease (COPD): Status: Chronic Problem details: - 11/03/23: FVC reduced; FEV1 and FEV1:FVC ratio normal; no bronchodilator response. Lung volumes reduced. Diffusion capacity reduced. Mild restriction and mildly reduced diffusion capacity. Compared to PFTs 12/23/13, FEV1 and FVC have decreased. 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?intensity modulated radiation therapy to a dose of 70.2 Gy in 26 fractions to the prostate and seminal vesicles and along with pelvic lymph nodes between 02/03/2022-03/18/2022?03/10/2022 Zytiga started along with Lupron shots?09/2022 he was switched from Zytiga to Elrleada due to insurance reasons--> concluded androgen deprivation therapy in December 2023, January 2024 with Lupron shots and erleada (2 years) DS: Summary Hospital Course Hospital Course: Per H&P: Faizan Simon is a 74 year old man was in his usual state of health until 1 week ago when he started having a sense of congestion in his airways. Has underlying COPD. Continue to take his usual medications. Condition gradually worsened. Two days ago was seen in urgent care and prescribed a Z-Yann and Claritin without relief. Presents today with worsening congestion, cough, wheezing, shortness of breath. Denies fevers, rigors, diaphoresis. Historically has been treated with prednisone briefly for COPD exacerbations with excellent response. In the emergency department responded well to bronchodilator nebulizer therapy. Was given prednisone as well. Despite these efforts however he continued to have hypoxia. At rest his oxygen saturations were ranging 88-90%. At rest and speaking his saturations dropped into the 86-87% range. Patient agreeable to hospital admission for observation as we continue with treatment efforts for COPD exacerbation. Also, patient recalls that he had anhydrous ammonia exposure 1-2 days prior to onset of respiratory symptoms. Overnight he had some improvement, but was still tight, wheezy and requiring supplemental oxygen. After another day of treatment, he is much improved and is discharging home today. 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 Time Spent with Patient Time attestation: Total time spent providing and/or coordinating discharge services: Today I spent 40 minutes seeing the patient, completing the discharge reviewing [facility] and EPIC notes/diagnostics/labs, discussing the care plan with our care team that includes social work, PT/OT, pharmacy, RT, penitentiary and documenting my impressions and plan in the medical record. Exam Narrative: Exam Narrative: General: No acute distress. On RA. Awake, alert, oriented x3. No pallor. No jaundice. Oropharynx: Clear. Mucous membranes moist. Cardiovascular: Regular rate and rhythm. No murmurs, gallops, or rubs. Respiratory: No respiratory distress. Better air movement today. Scattered expiratory wheezes. No crackles. Const: Vital Signs, click to edit/add: Vital Signs - 24 hr 01/02/25 11:00 01/02/25 14:58 01/02/25 15:00 Temperature 96.8 F L 97.1 F L Pulse Rate Pulse Rate [Left R adial] 85 Pulse Rate [Pulse Oximeter] 86 Respiratory Rate 24 20 20 Blood Pressure [Ri ght Arm] 126/73 126/83 Pulse Oximetry 93 93 93 Oxygen Delivery Me thod Room Air Room Air Room Air 01/02/25 15:00 01/02/25 15:00 01/02/25 20:20 Temperature 98.2 F Pulse Rate 99 Pulse Rate [Left R adial] 85 104 H Pulse Rate [Pulse Oximeter] 86 Respiratory Rate 20 20 Blood Pressure [Ri ght Arm] 160/89 H Pulse Oximetry 93 Oxygen Delivery Tx thod Room Air 01/02/25 21:31 01/02/25 22:37 01/03/25 00:10 Temperature Pulse Rate 101 H Pulse Rate [Left R adial] 104 H Pulse Rate [Pulse Oximeter] 104 H Respiratory Rate 20 20 Blood Pressure [Ri ght Arm] Pulse Oximetry 93 Oxygen Delivery Tx thod Room Air 01/03/25 00:10 01/03/25 04:41 01/03/25 07:00 Temperature 97.7 F 98.3 F Pulse Rate Pulse Rate [Left R adial] Pulse Rate [Pulse Oximeter] 95 93 Respiratory Rate 20 18 18 Blood Pressure [Ri ght Arm] 134/80 133/88 Pulse Oximetry 93 96 92 Oxygen Delivery Tx thod Room Air Room Air Room Air 01/03/25 07:00 01/03/25 07:00 01/03/25 07:45 Temperature 97.6 F Pulse Rate 92 Pulse Rate [Left R adial] Pulse Rate [Pulse Oximeter] 91 91 Respiratory Rate 18 18 Blood Pressure [Ri ght Arm] 138/93 H Pulse Oximetry 92 Oxygen Delivery Tx thod Room Air DS: Data Data Completed and Pending Completed studies during hospitalization: 01/01/2025 EKG: Sinus rhythm with premature supraventricular complexes, 97 beats per minute. Possible left atrial enlargement, left axis deviation, T-wave abnormality, consider lateral ischemia, prolonged QT. Ordering Physician: Forest Grissom M.D. Date of Service: 01/01/25 Procedure(s): XR chest 1V portable Accession Number(s): [id number] cc: Jacquelyn Fleming PA-C; Forest Grissom M.D.~ For Patients: As a result of the Cures Act, medical imaging exams and procedure reports are released immediately into your electronic medical record. You may view this report before your referring provider. If you have questions, please contact your health care provider. INDICATION: Dyspnea TECHNIQUE: Chest 1 views. COMPARISON: Chest radiograph on August 17, 2024 FINDINGS: Cardiovasculature and mediastinum: Heart and mediastinum are stable with mild cardiomegaly. Lungs and pleural spaces: Lung volumes are low with diffuse interstitial prominence and bibasilar patchy consolidations, left greater than right. Query a small left pleural effusion. No right-sided pleural effusion. No pneumothorax. Bones and soft tissues: No significant findings. IMPRESSION: 1. Diffuse interstitial prominence compatible with fibrosis and superimposed pulmonary edema. 2. Bibasilar patchy consolidation, left greater than right, compatible with atelectasis, aspiration and/or pneumonia. 3. Query a small left pleural effusion. Dictated by Daniela Cui MD @ 01/01/2025 9:10:25 PM (Electronically Signed) Ordering Physician: Forest Grissom M.D. Date of Service: 01/01/25 Procedure(s): CT chest wo con Accession Number(s): [id number] cc: Jacquelyn Fleming PA-C; Forest Grissom M.D.~ For Patients: As a result of the Cures Act, medical imaging exams and procedure reports are released immediately into your electronic medical record. You may view this report before your referring provider. If you have questions, please contact your health care provider. Indication: Cough, dyspnea, abnormal radiographs Technique: Noncontrast CT of the chest with multiplanar reformats. Comparison: Same day chest radiograph, CTA chest performed 11/04/2023 Findings: Lungs: Fibrotic pulmonary disease felt to be not significantly changed from prior examination with no new areas of consolidation appreciated. Mediastinum: No acute abnormality appreciated. Postoperative changes to the aortic valve. Calcified atherosclerosis. Lymph nodes: No gross lymphadenopathy. Upper abdomen: Cholecystectomy. Soft tissues: No acute abnormality appreciated. Bones: No acute abnormality appreciated. Median sternotomy wires. Spondylosis. Impression: Interstitial fibrosis, unchanged from 2023, with no acute abnormality appreciated. Please note that all CT scans at this facility use dose modulation, iterative reconstruction, and/or weight-based dosing when appropriate to reduce radiation dose to as low as reasonably achievable. Dictated by Kirill Haywood MD @ 01/01/2025 9:52:13 PM (Electronically Signed) Discharge Plan Discharge Disposition: Home, Self-Care Date of Admission: 01/02/25 08:55 Attending Provider on Discharge: Jocelynn Beasley Primary Care Provider: Jacquelyn Fleming Condition: Improved Anticipated Discharge Date/Time: 01/03/25 10:33 Discharge Medications: New budesonide 0.5 mg/2 mL Suspension For Nebulization 0.5 mg NEB BID Qty: 60 0RF prednisone 20 mg Tablet 40 mg PO DAILYWM 3 Days Qty: 6 0RF Continued metoprolol tartrate 25 mg tablet 25 mg PO BID multivitamin Tablet 1 tab PO QAM albuterol sulfate [Ventolin HFA] 90 mcg/actuation HFA aerosol inhaler 2 puff INHALATION Q4H PRN (Reason: wheezing) aspirin [Adult Low Dose Aspirin] 81 mg tablet,delayed release (DR/EC) 81 mg PO DAILY rosuvastatin 20 mg tablet 20 mg PO HS denosumab 60 mg/mL syringe 60 mg SUBCUT [id number] alendronate 70 mg tablet 70 mg PO Q7D fluticasone propionate 50 mcg/actuation spray,suspension 2 spray INTRANASAL DAILY Probiotic 10 billion cell capsule 10,000 mmu cells PO DAILY sennosides [Senna Lax] 8.6 mg tablet 8.6 mg PO QHS PreserVision AREDS 2,148 mcg-113 mg-45 mg-17.4mg tablet 1 tab PO BID ipratropium-albuterol 0.5 mg-3 mg(2.5 mg base)/3 mL solution for nebulization 3 ml INHALATION QID PRN (Reason: dyspnea) Qty: 180 0RF calcium carbonate-vitamin D3 600 mg-10 mcg (400 unit) tablet 1 tab PO BID Qty: 240 3RF Discontinued azithromycin 250 mg tablet 250 - 500 mg PO DAILY Discharge Orders: Discharge Order (Routine); Ordered 01/03/25 Ordered By: Jocelynn Beasley Additional Instructions: F/u with dance teacher 1-2 weeks Activity Level: No Restrictions Discharge Diet: Regular Follow Up Appointments: Jacquelyn Fleming PA-C [Primary Care Provider] - 01/06/25 10:50 am ([facility] for follow-up.) Forms: [employer] Info Instructions
[2025-01-03 11:50] VITALS: BP 139/78; PULSE 92; RESP 20; TEMP 36.7; O2SAT 94
--- NOTE | 2025-01-03 17:00 | PC.NURSE ---
Discharge: patient pleasant and cooperative, A&O. VSS, afebrile. SpO2 maintained above 90% on RA. IV removed with tip intact. Discharge instructions provided, all questions answered. Discharged to home with .
== END 2025-01-03 14:40 | disposition home or self-care (01) | DRG 189 ==
LOC: ED 21:32 → MEDSURG 22:19
PROVIDERS: Admitting Provider Internal Medicine; Emergency Provider Family Medicine; PCP Physician Assistant Medical; Visit Provider Internal Medicine
DX: J96.01 Acute respiratory failure with hypoxia (principal); J44.1 Chronic obstructive pulmonary disease with (acute) exacerbation; J67.0 Farmer's lung; J62.8 Pneumoconiosis due to other dust containing silica; J45.909 Unspecified asthma, uncomplicated; I10 Essential (primary) hypertension; C61 Malignant neoplasm of prostate; Q23.81 Bicuspid aortic valve; Z95.4 Presence of other heart-valve replacement; Z95.2 Presence of prosthetic heart valve; Z87.891 Personal history of nicotine dependence
CPT/HCPCS: 36415; 71045; 71250; 80048; 82803; 83605; 83735; 83880; 85025; 87631; 94640; 94761; 99285; A9270; G0378; J1650; J7030; J7512; J7626

== ENCOUNTER 2025-05-09 10:00 | Outpatient (RCR) | payer MEDICARE, BC, SELFPAY ==
[2025-01-31 09:39] LABS: Hematocrit* 43.0 % (37.0-53.0); Hemoglobin* 14.3 gm/dL (13.5-17.5); Immature Granulocytes Pct Auto 0.2 %; Mean Corpuscular HGB Conc 33 gm/dL (32-36); Mean Corpuscular Hemoglobin 31 pg (26-34); Mean Corpuscular Volume 93 fL (80-100); RDW Coefficient of Variation % 12.3 % (11.5-15.5); Red Blood Count* 4.61 m/uL (4.30-5.90); White Blood Count* 11.54 K/uL (4.50-11.00)
[2025-01-31 09:40] LABS: Immature Granulocytes Abs Auto 0.00 K/uL (0.00-0.30); Lymphocytes Absolute Auto 1.10 K/uL (0.90-2.90)
[2025-01-31 09:41] LABS: Slide Review Reflex No
[2025-01-31 11:09] LABS: Albumin* 3.7 g/dL (3.3-5.0); Chloride* 103 mmol/L (96-114)
[2025-01-31 11:10] LABS: Potassium* 4.1 mmol/L (3.6-5.1); Sodium* 139 mmol/L (135-149)
[2025-01-31 11:12] LABS: Blood Urea Nitrogen* 9 mg/dL (7-30); Creatinine* 0.8 mg/dL (0.5-1.5); Estimated Glomerular Filt Rate 92 ml/min
[2025-01-31 11:13] LABS: Alanine Aminotransferase* 13 U/L (4-50); Alkaline Phosphatase* 62 U/L (40-150); Anion Gap 8 mEq/L (7-15); Aspartate Amino Transferase* 34 U/L (12-35); Bilirubin Total* 0.6 mg/dL (0.1-1.5); Calcium* 9.0 mg/dL (8.4-10.6); Carbon Dioxide* 28 mmol/L (20-32); Glucose* 94 mg/dL (60-115); Total Protein* 6.6 g/dL (6.0-8.3)
[2025-01-31 11:47] LABS: PSA Diagnostic* < 0.06 ng/mL (0.10-4.00)
[2025-04-08 04:54] LABS: Testosterone, Adult Male 156 ng/dL (300-720)
[2025-05-09 10:20] LABS: Hematocrit* 44.3 % (37.0-53.0); Hemoglobin* 14.7 gm/dL (13.5-17.5); Immature Granulocytes Abs Auto 0.03 K/uL (0.00-0.30); Immature Granulocytes Pct Auto 0.3 %; Mean Corpuscular HGB Conc 33 gm/dL (32-36); Mean Corpuscular Hemoglobin 30 pg (26-34); Mean Corpuscular Volume 91 fL (80-100); RDW Coefficient of Variation % 12.3 % (11.5-15.5); Red Blood Count* 4.88 m/uL (4.30-5.90); White Blood Count* 9.82 K/uL (4.50-11.00)
[2025-05-09 10:22] LABS: Albumin* 4.3 g/dL (3.3-5.0); Chloride* 102 mmol/L (96-114); Lymphocytes Absolute Auto 1.20 K/uL (0.90-2.90); Slide Review Reflex No
[2025-05-09 10:23] LABS: Potassium* 3.9 mmol/L (3.6-5.1); Sodium* 139 mmol/L (135-149)
[2025-05-09 10:25] LABS: Alanine Aminotransferase* 19 U/L (4-50); Alkaline Phosphatase* 58 U/L (40-150); Anion Gap 7 mEq/L (7-15); Aspartate Amino Transferase* 33 U/L (12-35); Bilirubin Total* 0.7 mg/dL (0.1-1.5); Blood Urea Nitrogen* 18 mg/dL (7-30); Carbon Dioxide* 30 mmol/L (20-32); Creatinine* 0.9 mg/dL (0.5-1.5); Est. Creatinine Clearance* 57.60; Estimated Glomerular Filt Rate 89 ml/min; Total Protein* 7.4 g/dL (6.0-8.3)
[2025-05-09 10:26] LABS: Calcium* 9.2 mg/dL (8.4-10.6); Glucose* 94 mg/dL (60-115)
[2025-05-09 11:03] LABS: PSA Diagnostic* < 0.06 ng/mL (0.10-4.00)
--- NOTE | 2025-05-11 15:10 | ONC.NURNOTE ---
lab results called to Sharron- next appts for Jul
== END 2025-07-30 23:59 | disposition home or self-care (01) ==
LOC: CCIC 10:00
PROVIDERS: Internal Medicine Hematology & Oncology; Nurse Practitioner; Physician Assistant; PCP Physician Assistant Medical; Referring Provider Physician Assistant Medical; Visit Provider Clinical Nurse Specialist
DX: C61 Malignant neoplasm of prostate (principal)
CPT/HCPCS: 36415; 80053; 84153; 84403; 85025; 99214; G0463